=== PATIENT | male | born 1935 | race Caucasian/White ===

== ENCOUNTER 2017-10-03 09:11 | Day surgery (SDC) | payer MEDICARE, MEDICAID ==
[~2017-10-03] VITALS: Ht 170.2 cm; Wt 70.3 kg
[~2017-10-03 09:11] MED LIST: ASPIRIN325 MG PO; BICALUTAMIDE50 MG PO; CALCIUM-MAGNES1 EAC4 PO; LISINOPRIL10 MG PO; TURMERIC500 M2 PO; VITAMIN C500 M5 PO; VYTORIN 10-201 EACH PO
== END 2017-10-03 12:38 | disposition home or self-care (01) ==
LOC: DS 09:11 → OPS 09:11 → DS 10:30 → OPS 12:38
PROVIDERS: Ophthalmology
PROC: 08RJ3JZ Replacement of Right Lens with Synthetic Substitute, Percutaneous Approach (ICD-10-PCS; principal; 2017-10-03 10:30)
DX: H25.13 Age-related nuclear cataract, bilateral (principal); I10 Essential (primary) hypertension; E78.00 Pure hypercholesterolemia, unspecified; R17 Unspecified jaundice; Z79.82 Long term (current) use of aspirin; Z79.899 Other long term (current) drug therapy

== ENCOUNTER 2019-07-25 15:49 | Emergency (ER) | payer MEDICARE, OTHER ==
[~2019-07-25] VITALS: Ht 170.2 cm; Wt 70.3 kg
--- OUTSIDE RECORDS SUMMARY | ~2019-07-25 | XMS | Encounter Summary ---
Demographics + + + | Address | [address] | | | [place] [address] | + + + | Home Phone | | + + + | Preferred Language | Unknown | + + + | Marital Status | | + + + | Rastafarian Affiliation | 1001 | + + + | Race | Unknown | + + + | Ethnic Group | Unknown | + + + Author + + + | Author | [facility] | | | and [place] | + + + | Organization | [facility] | | | and [place] | + + + | Address | Unknown | + + + | Phone | Unavailable | + + + Support + + + + + | Name | Relationship | Address | Phone | + + + + + | Alber Mckeon | ECON | [address] | | | | | [place] | | | | | [address] | | + + + + + | Mechelle Vidal | ECON | [place] | | | | | [address] | | + + + + + Care Team Providers + +------+ + | Care Biztalk Developer Name | Role | Phone | + +------+ + PCP | Unavailable | + +------+ + Encounter Details +--------+ + + + + | Date | Type | Department | Care Team | Description | +--------+ + + + + | 03/10/ | Hospital | [facility] | | | | 2008 - | Encounter | MED [facility] CAN[facility] | | | | | | CENTER [address] | | | | 03/19/ | | [place] | | | | 2008 | | [address] | | | | | | [phone] | | | +--------+ + + + + Social History + +-------+ +--------+------+ | Tobacco Use | Types | Packs/Day | Years | Date | | | | | Used | | + +-------+ +--------+------+ | Never Assessed | | | | | + +-------+ +--------+------+ + + + | Sex Assigned at | Date Recorded | | | | + + + | Not on file | | + + + + + + + | Job Start Date | Occupation | Industry | + + + + | Not on file | Not on file | Not on file | + + + + + + + + | Travel History | Travel Start | Travel End | + + + + + + | No recent travel history available. | + + documented as of this encounter Plan of Treatment Not on filedocumented as of this encounter Visit Diagnoses Not on filedocumented in this encounter"
--- OUTSIDE RECORDS SUMMARY | ~2019-07-25 | XMS | Encounter Summary ---
Demographics + + + | Address | [address] | | | [place] [address] | + + + | Home Phone | | + + + | Preferred Language | Unknown | + + + | Marital Status | | + + + | Yazidism Affiliation | 1001 | + + + | Race | Unknown | + + + | Ethnic Group | Unknown | + + + Author + + + | Author | [facility] | | | and [place] | + + + | Organization | [facility] | | | and [...] [place] | | | | | [address] | | + + + + + | Mechelle Vidal | ECON | [place] | | | | | [address] | | + + + + + Care Team Providers + +------+ + | Care Airport Manager Name | Role | Phone | + +------+ + PCP | Unavailable | + +------+ + Encounter Details +--------+ + + + + | Date | Type | Department | Care Team | Description | +--------+ + + + + | 10/11/ | Hospital | [facility] | Timoteo Toribio, | | | 2011 - | Encounter | MED CTR CANCER | [place] [address] | | | | | [place] [address] | [place] | | | / | | [place], [place] | [address] | | | 2011 | | [address] | [phone] | | | | | [phone] | | | +--------+ + + + [...] encounter Progress Notes Timoteo Toribio MD - 10/11/2011 1:24 AM PSTDATE: 10/11/2011 RADIATION ONCOLOGY FOLLOWUP NOTE DIAGNOSIS: 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 FOLLOWUP NOTE: Mr. Akhil Mckeon is a 76-year-old gentleman with a history of a Tato 6 adenoca rcinoma of the prostate diagnosed back in 2001. The patient was treated with de finitive radiation , receiving 6840 cGy at that time. The patient did experience a PSA failure in 2004 and was sta rted on Lupron, with his last injection in May of 2010 . Hormonal therapy was discontinued at jeronimo t time, however, a rising PSA was noted, going from 0.26 in September to a level of 4 in March and up to 5.28 in May of 2011. Decisio n was made to restart hormonal therapy, and the patient was give n a 3-month injection of T relstar back on June 28. The patient returns today for further follow up. Mr. Mckeon states that he has tolerated restarting the hormone therapy well. He states his appeti te and energy level are good and gets the occasional hot flash but nothing signi ficant for him. He d enies any changes to his urination. He does report an AUA score of 9 out of a possible 35. He does get up 2-3 times per night to urinate. PHYSICAL EXAMINATION VITAL SIGNS: Blood pressure 136/72, pulse of 76, temperature 37 degrees Celsius, weight 73 .7 kg. GENERAL: The patient is awake, alert and oriented, in no apparent distress. LABORATORY DATA: Serum PSA on 10/03/2011 was down to 0.62. ASSESSMENT AND PLAN: Mr. Akhil Mckeon is a 76-year-old gentleman with a history of a G leason 6 a denocarcinoma of the prostate, initially treated with definitive radiation thera py nearing 10 years a go. The patient did restart androgen suppression therapy with a Trel star injection 3 months ago, and did have a good response with his PSA going from 5.28 down to 0.62 over a 3-month period. The patie nt is tolerating these treatment well. In discu ssion with Mr. Mckeon, he would like to continue t hat therapy at this time. Repeat 3-m onth injection of Trelstar was given today. [facility] for further followup. Approximately 20 minutes was spent with this patient, more than 50% of which was spent in d iscussion. DICTATED BY: Timoteo Toribio MD Radiation Oncology JOB #: [id number] EXT JOB #:[id number] EDITED: 10/16/2011 07:44 <Electronically Signed by Timoteo Toribio MD> 10/22/11 2259 documented in this encounter Plan of Treatment Not on filedocumented as of this encounter Visit Diagnoses Not on filedocumented in this encounter"
--- OUTSIDE RECORDS SUMMARY | ~2019-07-25 | XMS | Encounter Summary ---
Demographics + + + | Address | [address] | | | [place] [address] | + + + | Home Phone | | + + + | Preferred Language | Unknown | + + + | Marital Status | | + + + | Adventism Affiliation | 1001 | + + + | Race | Unknown | + + + | Ethnic Group | Unknown | + + + Author + + + | Author | [facility] | | | and [place] | + + + | Organization | [facility] | | | [...] [place] | | | | | [address] | | + + + + + | Mechelle Vidal | ECON | [place] | | | | | [address] | | + + + + + Care Team Providers + +------+ + | Care Adult Basic Education Manager Name | Role | Phone | + +------+ + PCP | Unavailable | + +------+ + Encounter Details +--------+ + + + + | Date | Type | Department | Care Team | Description | +--------+ + + + + | 06/28/ | Hospital | [facility] | Timoteo Toribio, | | | 2010 - | Encounter | MED CTR CANCER | [place] [address] | | | | | [place] [address] | [place] | | | 07/19/ | | [place], [place] | [address] | | | 2010 | | [address] | [phone] | | | | | [phone] | | | +--------+ + + + [...] Timoteo Toribio MD Radiation Oncology JOB #: [id number] EXT JOB #:[id number] cc: MD Alia Loza MD <Electronically Signed by Timoteo Toribio MD> 07/15/11 1100 documented in this encounter Plan of Treatment Not on filedocumented as of this encounter Visit Diagnoses Not on filedocumented in this encounter"
--- OUTSIDE RECORDS SUMMARY | ~2019-07-25 | XMS | Encounter Summary ---
Demographics + + + | Address | [address] | | | [place] [address] | + + + | Home Phone | | + + + | Preferred Language | Unknown | + + + | Marital Status | | + + + | Sikh Affiliation | 1001 | + + + | Race | Unknown | + + + | Ethnic Group | Unknown | + + + Author + + + | Author | [facility] | | | and [place] | + + + | Organization | [facility] | | | [...] [place] | | | | | [address] | | + + + + + | Mechelle Vidal | ECON | [place] | | | | | [address] | | + + + + + Care Team Providers + +------+ + | Care Tradeshow Worker Name | Role | Phone | + +------+ + PCP | Unavailable | + +------+ + Encounter Details +--------+ + + + + | Date | Type | Department | Care Team | Description | +--------+ + + + + | 02/26/ | Hospital | [facility] | | | | 2006 - | Encounter | MED CTR CANCER | | | | | | CENTER [address] | | | | 03/19/ | | [place] | | | | 2006 | | [address] | | | | | | [phone] | | | +--------+ + + + [...]
--- OUTSIDE RECORDS SUMMARY | ~2019-07-25 | XMS | Encounter Summary ---
Demographics + + + | Address | [address] | | | [place] [address] | + + + | Home Phone | | + + + | Preferred Language | Unknown | + + + | Marital Status | | + + + | Bahai Affiliation | 1001 | + + + | Race | Unknown | + + + | Ethnic Group | Unknown | + + + Author + + + | Author | [facility] | | | and [place] | + + + | Organization | [facility] | | [...] [place] | | | | | [address] | | + + + + + | Mechelle Vidal | ECON | [place] | | | | | [address] | | + + + + + Care Team Providers + +------+ + | Care Oil Producer Name | Role | Phone | + +------+ + PCP | Unavailable | + +------+ + Encounter Details +--------+ + + + + | Date | Type | Department | Care Team | Description | +--------+ + + + + | 07/15/ | Hospital | [facility] | | | | 2007 - | Encounter | MED CTR CANCER | | | | | | CENTER [address] | | | | 07/19/ | | [place] | | | | 2007 | | [address] | | | | | | [phone] | | | +--------+ + + + [...]
--- OUTSIDE RECORDS SUMMARY | ~2019-07-25 | XMS | Encounter Summary ---
Demographics + + + | Address | [address] | | | [place] [address] | + + + | Home Phone | | + + + | Preferred Language | Unknown | + + + | Marital Status | | + + + | Anglican Affiliation | 1001 | + + + | Race | Unknown | + + + | Ethnic Group | Unknown | + + + Author + + + | Author | [facility] | | | and [place] | + + + | Organization | [facility] | | | [...] [place] | | | | | [address] | | + + + + + | Mechelle Vidal | ECON | [place] | | | | | [address] | | + + + + + Care Team Providers + +------+ + | Care Handkerchief Cutter Name | Role | Phone | + +------+ + PCP | Unavailable | + +------+ + Encounter Details +--------+ + + + + | Date | Type | Department | Care Team | Description | +--------+ + + + + | 01/09/ | Hospital | [facility] | Timoteo Toribio, | | | 2011 - | Encounter | MED CTR CANCER | [place] [address] | | | | | [place] [address] | [place] | | | 01/17/ | | [place] | [address] | | | 2011 | | [address] | [phone] | | | | | [phone] | | | +--------+ + + + [...] documented as of this encounter Progress Notes Brianna Rodriguez MD - 01/10/2012 12:06 AM PDTDATE: 01/10/2012 RADIATION ONCOLOGY - FOLLOWUP NOTE IDENTIFICATION: A 76-year-old gentleman with 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 He is status post 4500 cGy to the pelvis, 6120 cGy to the seminal vesicle and 6 840 cGy to the prostate as of 01/2002. SUBJECTIVE: The patient is without any specific GI or complaints. He admits to having n octuria 3 to 4 times per night as he eats supper late, around 9:30 or 10 p.m. and drinks at that time. This nocturia frequency is his usual and has not increased. He complains of ho t flashes since being on Trelstar. OBJECTIVE VITAL SIGNS: Weight 71.3 kg (down 2.4 kg since September, and the patient is happy with thi s) temperature 35.9, pulse 60 and regular, blood pressure 150/78. GENERAL: The patient is a well-developed, well-nourished gentleman in no acute distress who appears his stated age a nd does not appear chronically ill. PSYCHIATRIC: He is alert and appropriately responsive. No obvious signs of anxiety, agitation or depression. Memory appears to be intact. His PSA values have been as follows: 5.28 in 05/2011. 0.62 in 09/2011 0.443 on 01/02/2012. ASSESSMENT: Mild weight loss, but the patient states he is eating well and says that he is happy with his weight loss. PSA continues to decline. PLAN: We will administer another injection of Trelstar today (11.25 mg IM). He will be philip eduled for a 3-month followup appointment with a PSA 1 week prior to the appointment. He wi ll continue to have his labs drawn in [place]. He will continue to see his other physicia ns as needed. DICTATED BY: Brianna Rodriguez MD Radiation Oncology JOB #: [id number] EXT JOB #:[id number] cc: MD Alia Loza MD Spencer N. Ashton, MD <Electronically Signed by Brianna Rodriguez MD> 01/10/12 1242 documented in this encounter Plan of Treatment Not on filedocumented as of this encounter Visit Diagnoses Not on filedocumented in this encounter"
--- OUTSIDE RECORDS SUMMARY | ~2019-07-25 | XMS | Encounter Summary ---
Demographics + + + | Address | [address] | | | [place] [address] | + + + | Home Phone | | + + + | Preferred Language | Unknown | + + + | Marital Status | | + + + | Rastafarian Affiliation | 1001 | + + + | Race | Unknown | + + + | Ethnic Group | Unknown | + + + Author + + + | Author | [facility] | | | and [place] | + + + | Organization | [facility] | | | and [...] [address] | | | | | [address] | | + + + + + | Mechelle Vidal | ECON | [place] | | | | | [address] | | + + + + + Care Team Providers + +------+ + | Care Municipal Bond Trader Name | Role | Phone | + +------+ + PCP | Unavailable | + +------+ + Encounter Details +--------+ + + + + | Date | Type | Department | Care Team | Description | +--------+ + + + + | 04/03/ | Hospital | [facility] | | | | 2007 - | Encounter | MED CTR CANCER | | | | | | CENTER [address] | | | | 04/19/ | | [place] | | | | 2007 | | [address] | | | | | | [phone] | | | +--------+ + + + [...]
--- OUTSIDE RECORDS SUMMARY | ~2019-07-25 | XMS | Encounter Summary ---
Demographics + + + | Address | [address] | | | [place] [address] | + + + | Home Phone | | + + + | Preferred Language | Unknown | + + + | Marital Status | | + + + | Mu-Ism Affiliation | 1001 | + + + | Race | Unknown | + + + | Ethnic Group | Unknown | + + + Author + + + | Author | [facility] | | | and [place] | + + + | Organization | [facility] | | | [...] [address] | | | | | [address] | | + + + + + | Mechelle Vidal | ECON | [place] | | | | | [address] | | + + + + + Care Team Providers + +------+ + | Care Crew Boat Operator Name | Role | Phone | + +------+ + PCP | Unavailable | + +------+ + Encounter Details +--------+ + + + + | Date | Type | Department | Care Team | Description | +--------+ + + + + | 11/07/ | Hospital | [facility] | | | | 2001 - | Encounter | MED CTR CANCER | | | | | | CENTER [address] | | | | 02/05/ | | [place] | | | | 2001 | | [address] | | | | | | [phone] | | | +--------+ + + + [...]
--- OUTSIDE RECORDS SUMMARY | ~2019-07-25 | XMS | Encounter Summary ---
Demographics + + + | Address | [address] | | | [place] [address] | + + + | Home Phone | | + + + | Preferred Language | Unknown | + + + | Marital Status | | + + + | Jainism Affiliation | 1001 | + + + | Race | Unknown | + + + | Ethnic Group | Unknown | + + + Author + + + | Author | [facility] | | | and [place] | + + + | Organization | [facility] | | | [...] [address] | | | | | [address] | | + + + + + | Mechelle Vidal | ECON | [place] | | | | | [address] | | + + + + + Care Team Providers + +------+ + | Care Freight Rate Specialist Name | Role | Phone | + +------+ + PCP | Unavailable | + +------+ + Encounter Details +--------+ + + + + | Date | Type | Department | Care Team | Description | +--------+ + + + + | 11/15/ | Hospital | [facility] | | | | 2005 - | Encounter | MED CTR GENERIC OP | | | | | | CONV DEPT [address] | | | | 11/17/ | | [place], | | | | 2005 | | [place] [address] | | | | | | [phone] | | | +--------+ + + + [...]
--- OUTSIDE RECORDS SUMMARY | ~2019-07-25 | XMS | Encounter Summary ---
Demographics + + + | Address | [address] | | | [place] [address] | + + + | Home Phone [...] + + | Author | [facility] | | | and [place] | + + + | Organization | [facility] | | [...] [address] | | | | | [address] | | + + + + + | Mechelle Vidal | ECON | [place] | | | | | [address] | | + + + + + Care Team Providers + +------+ + | Care Rubber Goods Repairer Name | Role | Phone | + +------+ + PCP | Unavailable | + +------+ + Encounter Details +--------+ + + + + | Date | Type | Department | Care Team | Description | +--------+ + + + + | 10/11/ | Hospital | [facility] | Timoteo Toribio, | | | 2011 - | Encounter | MED CTR CANCER | [place] [address] | | | | | [place] [address] | [place] | | | / | | [place], [place] | [address] | | | 2011 | | [address] | [phone] | | | | | [phone] | | | +--------+ + + + [...] given today. [facility] for further followup. Approximately 20 minutes was spent with this patient, more than 50% of which was spent in d iscussion. DICTATED BY: Timoteo Toribio MD Radiation Oncology JOB #: [id number] EXT JOB #:[id number] EDITED: 10/16/2011 07:44 <Electronically Signed by Timoteo Toribio MD> 10/22/11 2259 documented in this encounter Plan of Treatment Not on filedocumented as of this encounter Visit Diagnoses Not on filedocumented in this encounter"
--- OUTSIDE RECORDS SUMMARY | ~2019-07-25 | XMS | Encounter Summary ---
Demographics + + + | Address | [address] | | | [place] [address] | + + + | Home Phone [...] [address] | | | | | [address] | | + + + + + | Mechelle Vidal | ECON | [place] | | | | | [address] | | + + + + + Care Team Providers + +------+ + | Care Project Landscape Architect Name | Role | Phone | + [...] | | | | 2007 | | [address] | | | | | | [phone] | | | +--------+ + + + [...]
--- OUTSIDE RECORDS SUMMARY | ~2019-07-25 | XMS | Encounter Summary ---
Demographics + + + | Address | [address] | | | [place] [address] | + + + | Home Phone | | + + + | Preferred Language | Unknown | + + + | Marital Status | | + + + | Mandaen Affiliation | 1001 | + + + | Race | Unknown | + + + | Ethnic Group | Unknown | + + + Author + + + | Author | [facility] | | | and [place] | + + + | Organization | [facility] | | | and [...] [address] [place] | | | | | [address] | | + + + + + | Mechelle Vidal | ECON | [place] | | | | | [address] | | + + + + + Care Team Providers + +------+ + | Care Benefits Technician Name | Role | Phone | [...] | | | | 2007 | | [address] | | | | | | [phone] | | | +--------+ + + + [...]
--- OUTSIDE RECORDS SUMMARY | ~2019-07-25 | XMS | Encounter Summary ---
Demographics + + + | Address | [address] | | | [place] [address] | + + + | Home Phone | | + + + | Preferred Language | Unknown | + + + | Marital Status | | + + + | Mormon Affiliation | 1001 | + + + [...] [place] | | | | | [address] | | + + + + + | Mechelle Vidal | ECON | [place] | | | | | [address] | | + + + + + Care Team Providers + +------+ + | Care Fisher Gill Net Name | Role | Phone | + +------+ + | Naeem Nair MD | PCP | | + +------+ + Encounter Details +--------+ + + + + | Date | Type | Department | Care Team | Description | +--------+ + + + + | 11/27/ | Hospital | [facility] | Catarino Timoteo N, | | | 2012 - | Encounter | MED CTR CANCER | [place] [address] | | | | | [place] [address] | [place] | | | 12/17/ | | [place] | [address] | | | 2012 | | [address] | [phone] | | | | | [phone] | | | +--------+ + + + [...]
--- OUTSIDE RECORDS SUMMARY | ~2019-07-25 | XMS | Encounter Summary ---
Demographics + + + | Address | [address] | | | [place] [address] | + + + | Home Phone | | + + + | Preferred Language | Unknown | + + + | Marital Status | | + + + | Holiness Affiliation | 1001 | + + + | Race | Unknown | + + + | Ethnic Group | Unknown | + + + Author + + + | Author | [facility] | | | and [place] | + + + | Organization | [facility] | | | and [place] | + + + | Address | Unknown | + + + | Phone | Unavailable | + + + Support + + + + + | Name | Relationship | Address | Phone | + + + + + | Alber Mckeno | ECON | [address] | | | | | [place] | | | | | [address] | | + + + + + | Mechelle Vidal | ECON | [place] | | | | | [address] | | + + + + + Care Team Providers + +------+ + | Care Education Program Coordinator Name | Role | Phone | + [...] | | | | 2002 | | [address] | | | | | | [phone] | | | +--------+ + + + [...]
--- OUTSIDE RECORDS SUMMARY | ~2019-07-25 | XMS | Encounter Summary ---
Demographics + + + | Address | [address] | | | [place] [address] | + + + | Home Phone | | + + + | Preferred Language | Unknown | + + + | Marital Status | | + + + | Hoahaoism Affiliation | 1001 | + + + | Race | Unknown | + + + | Ethnic Group | Unknown | + + + Author + + + | Author | [facility] | | | and [place] | + + + | Organization | [facility] | | | [...] [place] | | | | | [address] | | + + + + + | Mechelle Vidal | ECON | [place] | | | | | [address] | | + + + + + Care Team Providers + +------+ + | Care Care Management Specialist Name | Role | Phone | + +------+ + | Naeem Nair MD | PCP | | + +------+ + Encounter Details +--------+ + + + + | Date | Type | Department | Care Team | Description | +--------+ + + + + | 07/10/ | Hospital | [facility] | Catarino Timoteo N, | | | 2011 - | Encounter | MED CTR CANCER | [place] [address] | | | | | [place] [address] | [place] | | | 07/19/ | | [place] | [address] | | | 2011 | | [address] | [phone] | | | | | [phone] | | | +--------+ + + + [...] | [facility] | | | | [place] [facility] | | MEDICAL | | | [...] + | [facility] | [address] | [place] | [phone] | | [facility] | | [address] | | | - LABORATORY | | | | + + + + + | [place] | [address] | [place] | | | [facility] | | [address] | | | - LABORATORY | | | | + + + + + documented in this encounter Visit Diagnoses Not on filedocumented in this encounter"
--- OUTSIDE RECORDS SUMMARY | ~2019-07-25 | XMS | Encounter Summary ---
Demographics + + + | Address | [address] | | | [place] [address] | + + + | Home Phone | | + + + | Preferred Language | Unknown | + + + | Marital Status | | + + + | Religion Affiliation | 1001 | + + + | Race | Unknown | + + + | Ethnic Group | Unknown | + + + Author + + + | Author | [facility] | | | and Jorgeana | + + + | Organization | [facility] | | | [...] [address] | | | | | [address] | | + + + + + | Mechelle Vidal | ECON | [place] | | | | | [address] | | + + + + + Care Team Providers + +------+ + | Care Technology Auditor Name | Role | Phone | + +------+ + PCP | Unavailable | + +------+ + Encounter Details +--------+ + + + + | Date | Type | Department | Care Team | Description | +--------+ + + + + | 04/10/ | Hospital | [facility] | Timoteo Toribio, | | | 2011 - | Encounter | MED CTR CANCER | [place] [address] | | | | | [place] [address] | [place] | | | 04/19/ | | [place], [place] | [address] | | | 2011 | | [address] | [phone] | | | | | [phone] | | | +--------+ + + + [...] tend erness. He continues to work a [employer] every day. PHYSICAL EXAMINATION VITAL SIGNS: Weight [...] Bassam Cristina MD Radiation Oncology JOB #: [id number] [id number] JOB #:[id number] cc: MD Alia Loza MD Spencer N. Ashton, MD <Electronically Signed by Bassam Cristina MD> 04/10/12 1458 documented in this encounter Plan of Treatment Not on filedocumented as of this encounter Visit Diagnoses Not on filedocumented in this encounter"
--- OUTSIDE RECORDS SUMMARY | ~2019-07-25 | XMS | Encounter Summary ---
Demographics + + + | Address | [address] | | | [place] [address] | + + + | Home Phone [...] [place] | | | | | [address] | | + + + + + | Mechelle Vidal | ECON | [place] | | | | | [address] | | + + + + + Care Team Providers + +------+ + | Care Real Estate Attorney Name | Role | Phone | + [...] | | [address] [address] | [place] [address] | | | | | [address] | [phone] | | | | | [phone] | | | +--------+ + + + [...] 2.49 cm AR Dec | | | Harper: 1.99 m/s2 AR Dec Time: 2107.85 ms [...] m/s Lateral E/e': 10.58 | | | Mannequin Wig Maker: [email or web address] Authenticated by: Hipolito Suarez | | | Date/Time: 08-03-2017 14:15:57 | | + + + + + | Procedure Note | + + | Theodore, Rad Conversion - 04/10/2019 8:37 PM PDT Patient Name: Eileen Mckeon | | of : 1935 Performing Physician: Hipolito | | [facility] INDICATIONS------ | | -----Murmur CONCLUSIONS 1. [...] cmLVIDd: 3.73 cmLVPWd: 1.02 cmLVOT Area: 3.12 [id number] Diam: | | 1.99 cm%FS: 38.08 %EF(Teich): [...] (A-L): 15.42 ml/m2LAAs | | A2C: 12.67 [id number] A-L A2C: 30.25 mlLALs A2C: 4.50 cmLAAs A4C: 14.55 [id number] | | A-L A4C: 41.62 mlLALs A4C: 4.31 cmRAAs: 13.92 [id number] A-L: 37.79 mlRAESV MOD: | | 35.28 mlRALs: 4.35 cmTAPSE: 2.49 cmAR Dec Harper: 1.99 m/s2AR Dec Time: 2106. | | msAR maxP.62 mmHgAR PHT: 611.27 msAR Vmax: 4.20 m/Alva maxP.12 mmHgAV | | meanP.84 mmHgAV Vmax: 1.59 m/Alva Vmean: 1.14 m/Alva VTI: 34.41 cmAVA Vmax: | | 2.76 cm2AVA (VTI): 3.27 [id number] Vmax: 0.00 cm2/m2AVAI (VTI): 0.00 cm2/m2LVOT | | maxP.93 mmHgLVOT meanP.33 mmHgLVSI Dopp: 47.98 ml/m2LVSV Dopp: 112.76 | | mlLVOT Vmax: 1.40 m/sLVOT Vmean: 1.11 m/sLVOT VTI: 36.07 cmMV A Jerry: 0.91 m/sMV | | DecT: 209.15 msMV E Jerry: 0.82 m/sMV E/A Ratio: 0.90MV PHT: 60.65 msMVA By PHT: | | 3.62 or2Zeaxjb e': 0.06 m/sSeptal E/e': 12.63Lateral e': 0.07 m/sLateral E/e': | | 10.58 Mannequin Wig Maker: [email or web address] by: Hipolito Wooten Date/Time: 08-03-2017 | [...] | |TAPSE: 2.49 cm | |AR Dec Harper: 1.99 m/s2 | |AR Dec Time: 2107.85 [...] | |Lateral E/e': 10.58 | | | |Mannequin Wig Maker: DBS | |Authenticated by: Hipolito Cullen | [...]
--- OUTSIDE RECORDS SUMMARY | ~2019-07-25 | XMS | Encounter Summary ---
Demographics + + + | Address | [address] | | | [place] [address] | + + + | Home Phone [...] [address] | | | | | [address] | | + + + + + | Mechelle Vidal | ECON | [place] | | | | | [address] | | + + + + + Care Team Providers + +------+ + | Care Software Educator Name | Role | Phone | + +------+ + PCP | Unavailable | + +------+ + Encounter Details +--------+ + + + + | Date | Type | Department | Care Team | Description | +--------+ + + + + | 04/23/ | Hospital | [facility] | | | | 2001 - | Encounter | MED CTR CANCER | | | | | | CENTER [address] | | | | 08/15/ | | [place] | | | | 2001 | | [address] | | | | | | [phone] | | | +--------+ + + + [...]
--- OUTSIDE RECORDS SUMMARY | ~2019-07-25 | XMS | Encounter Summary ---
Demographics + + + | Address | [address] | | | [place] [address] | + + + | Home Phone | | + + + | Preferred Language | Unknown | + + + | Marital Status | | + + + | Uatsdin Affiliation | 1001 | + + + | Race | Unknown | + + + | Ethnic Group | Unknown | + + + Author + + + | Author | [facility] | | | and Jorge[place] | + + + | Organization | [facility] | | [...] [address] | | | | | [address] | | + + + + + | Mechelle Vidal | ECON | [place] | | | | | [address] | | + + + + + Care Team Providers + +------+ + | Care Foam Rubber Mixer Name | Role | Phone | + +------+ + PCP | Unavailable | + +------+ + Encounter Details +--------+ + + + + | Date | Type | Department | Care Team | Description | +--------+ + + + + | 10/20/ | Hospital [facility] | | | | 2004 - | Encounter | MED CTR GENERIC OP | | | | | | CONV DEPT [address] | | | | 01/18/ | | [place], | | | | 2004 | | [place] [address] | | | | | | [phone] | | | +--------+ + + + [...]
--- OUTSIDE RECORDS SUMMARY | ~2019-07-25 | XMS | Encounter Summary ---
Demographics + + + | Address | [address] | | | [place] [address] | + + + | Home Phone | | + + + | Preferred Language | Unknown | + + + | Marital Status | | + + + | Moravian Affiliation | 1001 | + + + [...] [address] | | | | | [address] | | + + + + + | Mechelle Vidal | ECON | [place] | | | | | [address] | | + + + + + Care Team Providers + +------+ + | Care Lens Blank Gauger Name | Role | Phone | + [...] | | | | 2007 | | [address] | | | | | | [phone] | | | +--------+ + + + [...]
--- OUTSIDE RECORDS SUMMARY | ~2019-07-25 | XMS | Encounter Summary ---
Demographics + + + | Address | [address] | | | [place] [address] | + + + | Home Phone | | + + + | Preferred Language | Unknown | + + + | Marital Status | | + + + | Evangelical Affiliation | 1001 | + + + | Race | Unknown | + + + | Ethnic Group | Unknown | + + + Author + + + | Author | [facility] | | | and Jorgeana | + + + | Organization | [facility] | | [...] [address] | | | | | [address] | | + + + + + | Mechelle Vidal | ECON | [place] | | | | | [address] | | + + + + + Care Team Providers + +------+ + | Care Bank President Name | Role | Phone | + [...] | | | | 2007 | | [address] | | | | | | [phone] | | | +--------+ + + + [...]
--- OUTSIDE RECORDS SUMMARY | ~2019-07-25 | XMS | Encounter Summary ---
Demographics + + + | Address | [address] | | | [place] [address] | + + + | Home Phone | | + + + | Preferred Language | Unknown | + + + | Marital Status | | + + + | Jainism Affiliation | 1001 | + + + | Race | Unknown | + + + | Ethnic Group | Unknown | + + + Author + + + | Author | [facility] | | | and Jorge[place] | + + + | Organization | [facility] | [...] [place] | | | | | [address] | | + + + + + | Mechelle Vidal | ECON | [place] | | | | | [address] | | + + + + + Care Team Providers + +------+ + | Care Director Geophysical Laboratory Name | Role | Phone | + +------+ + | Naeem Nair MD | PCP | | + +------+ + Encounter Details +--------+ + + + + | Date | Type | Department | Care Team | Description | +--------+ + + + + | 11/27/ | Hospital | [facility] | Catarino Timoteo N, | | | 2012 - | Encounter | MED CTR CANCER | [place] [address] | | | | | [place] [address] | [place] | | | 12/17/ | | [place] | [address] | | | 2012 | | [address] | [phone] | | | | | [phone] | | | +--------+ + + + [...]
--- OUTSIDE RECORDS SUMMARY | ~2019-07-25 | XMS | Encounter Summary ---
Demographics + + + | Address | [address] | | | [place] [address] | + + + | Home Phone | | + + + | Preferred Language | Unknown | + + + | Marital Status | | + + + | Evangelical Affiliation | 1001 | + + + | Race | Unknown | + + + | Ethnic Group | Unknown | + + + Author + + + | Author | [facility] | | | and Jorgeana | + + + | Organization | [facility] | | | [...] [address] | | | | | [address] | | + + + + + | Mechelle Vidal | ECON | [place] | | | | | [address] | | + + + + + Care Team Providers + +------+ + | Care Project Financial Analyst Name | Role | Phone | [...] | | | | 2006 | | [address] | | | | | | [phone] | | | +--------+ + + + [...]
--- OUTSIDE RECORDS SUMMARY | ~2019-07-25 | XMS | Encounter Summary ---
Demographics + + + | Address | [address] | | | [place] [address] | + + + | Home Phone | | + + + | Preferred Language | Unknown | + + + | Marital Status | | + + + | Adventism Affiliation | 1001 | + + + | Race | Unknown | + + + | Ethnic Group | Unknown | + + + Author + + + | Author | [facility] | | | and Jorgeana | + + + | Organization | [facility] | | [...] [address] | | | | | [address] | | + + + + + | Mechelle Vidal | ECON | [place] | | | | | [address] | | + + + + + Care Team Providers + +------+ + | Care Quality Assurance Assistant Name | Role | Phone | + +------+ + PCP | Unavailable | + +------+ + Encounter Details +--------+ + + + + | Date | Type | Department | Care Team | Description | +--------+ + + + + | 11/12/ | Hospital | [facility] | | | | 2008 - | Encounter | MED CTR CANCER | | | | | | CENTER [address] | | | | 11/17/ | | [place] | | | | 2008 | | [address] | | | | | | [phone] | | | +--------+ + + + [...]
--- OUTSIDE RECORDS SUMMARY | ~2019-07-25 | XMS | Encounter Summary ---
Demographics + + + | Address | [address] | | | [place] [address] | + + + | Home Phone | | + + + | Preferred Language | Unknown | + + + | Marital Status | | + + + | Bahai Affiliation | 1001 | + + + | Race | Unknown | + + + | Ethnic Group | Unknown | + + + Author + + + | Author | [facility] | | | and Jorgeana | + + + | Organization | [facility] | | [...] [address] | | | | | [address] | | + + + + + | Mechelle Vidal | ECON | [place] | | | | | [address] | | + + + + + Care Team Providers + +------+ + | Care Die Reamer Name | Role | Phone | + +------+ + PCP | Unavailable | + +------+ + Encounter Details +--------+ + + + + | Date | Type | Department | Care Team | Description | +--------+ + + + + | 05/11/ | Hospital | [facility] | | | | 2004 - | Encounter | MED CTR GENERIC OP | | | | | | CONV DEPT [address] | | | | 08/09/ | | [place], | | | | 2004 | | [place] [address] | | | | | | [phone] | | | +--------+ + + + [...]
--- OUTSIDE RECORDS SUMMARY | ~2019-07-25 | XMS | Encounter Summary ---
Demographics + + + | Address | [address] | | | [place] [address] | + + + | Home Phone | | + + + | Preferred Language | Unknown | + + + | Marital Status | | + + + | Jainism Affiliation | 1001 | + + + | Race | Unknown | + + + | Ethnic Group | Unknown | + + + Author + + + | Author | [facility] | | | and [place] | + + + | Organization | [facility] | | [...] [address] | | | | | [address] | | + + + + + | Mechelle Vidal | ECON | [place] | | | | | [address] | | + + + + + Care Team Providers + +------+ + | Care Lan Administrator Name | Role | Phone | + [...] | | | 08/07/ | | [place] | | | | 2005 | | [address] | | | | | | [phone] | | | +--------+ + + + [...]
--- OUTSIDE RECORDS SUMMARY | ~2019-07-25 | XMS | Encounter Summary ---
Demographics + + + | Address | [address] | | | [place] [address] | + + + | Home Phone | | + + + | Preferred Language | Unknown | + + + | Marital Status | | + + + | Hindu Affiliation | 1001 | + + + [...] [address] | | | | | [address] | | + + + + + | Mechelle Vidal | ECON | [place] | | | | | [address] | | + + + + + Care Team Providers + +------+ + | Care Lamp Decorator Name | Role | Phone | + +------+ + PCP | Unavailable | + +------+ + Encounter Details +--------+ + + + + | Date | Type | Department | Care Team | Description | +--------+ + + + + | 01/25/ | Hospital [facility] | | | | 2004 - | Encounter | MED CTR GENERIC OP | | | | | | CONV DEPT [address] | | | | 04/25/ | | [place], | | | | 2004 | | [place] [address] | | | | | | [phone] | | | +--------+ + + + [...]
--- OUTSIDE RECORDS SUMMARY | ~2019-07-25 | XMS | Encounter Summary ---
Demographics + + + | Address | [address] | | | [place] [address] | + + + | Home Phone | | + + + | Preferred Language | Unknown | + + + | Marital Status | | + + + | Islam Affiliation | 1001 | + + + | Race | Unknown | + + + | Ethnic Group | Unknown | + + + Author + + + | Author | [facility] | | | and Jorgeana | + + + | Organization | [facility] | | | [...] [address] | | | | | [address] | | + + + + + | Mechelle Vidal | ECON | [place] | | | | | [address] | | + + + + + Care Team Providers + +------+ + | Care Straightedge Worker Name | Role | Phone | [...] | | | | 2006 | | [address] | | | | | | [phone] | | | +--------+ + + + [...]
--- OUTSIDE RECORDS SUMMARY | ~2019-07-25 | XMS | Encounter Summary ---
Demographics + + + | Address | [address] | | | [place] [address] | + + + | Home Phone | | + + + | Preferred Language | Unknown | + + + | Marital Status | | + + + | Gnosticist Affiliation | 1001 | + + + [...] [address] | | | | | [address] | | + + + + + | Mechelle Vidal | ECON | [place] | | | | | [address] | | + + + + + Care Team Providers + +------+ + | Care Industrial Editor Name | Role | Phone | + +------+ + PCP | Unavailable | + +------+ + Encounter Details +--------+ + + + + | Date | Type | Department | Care Team | Description | +--------+ + + + + | 06/28/ | Hospital | [facility] | Timoteo Toribio, | | | 2010 - | Encounter | MED CTR CANCER | [place] [address] | | | | | [place] [address] | [place] | | | 07/19/ | | [place] | [address] | | | 2010 | | [address] | [phone] | | | | | [phone] | | | +--------+ + + + [...] Timoteo Toribio MD Radiation Oncology JOB #: [id number] EXT JOB #:[id number] cc: MD Alia Loza MD <Electronically Signed by Timoteo Toribio MD> 07/15/11 1100 documented in this encounter Plan of Treatment Not on filedocumented as of this encounter Visit Diagnoses Not on filedocumented in this encounter"
--- OUTSIDE RECORDS SUMMARY | ~2019-07-25 | XMS | Encounter Summary ---
Demographics + + + | Address | [address] | | | [place] [address] | + + + | Home Phone [...] [address] | | | | | [address] | | + + + + + | Mechelle Vidal | ECON | [place] | | | | | [address] | | + + + + + Care Team Providers + +------+ + | Care Calender Let Off Helper Name | Role | Phone | + +------+ + PCP | Unavailable | + +------+ + Encounter Details +--------+ + + + + | Date | Type | Department | Care Team | Description | +--------+ + + + + | 11/15/ | Hospital | [facility] | | | | 2005 - | Encounter | MED CTR GENERIC OP | | | | | | CONV DEPT [address] | | | | 11/17/ | | [place], | | | | 2005 | | [place] [address] | | | | | | [phone] | | | +--------+ + + + [...]
--- OUTSIDE RECORDS SUMMARY | ~2019-07-25 | XMS | Encounter Summary ---
Demographics + + + | Address | [address] | | | [place] [address] | + + + | Home Phone [...] + | Author | [facility] | | | and Jorgeana | + + + | Organization | [facility] | | | and [...] [address] | | | | | [address] | | + + + + + | Mechelle Vidal | ECON | [place] | | | | | [address] | | + + + + + Care Team Providers + +------+ + | Care Literacy Education Professor Name | Role | Phone | + +------+ + PCP | Unavailable | + +------+ + Encounter Details +--------+ + + + + | Date | Type | Department | Care Team | Description | +--------+ + + + + | 10/12/ | Hospital | [facility] | | | | 2010 - | Encounter | MED CTR CANCER | | | | | | CENTER [address] | | | | 10/13/ | | [place] | | | | 2010 | | [address] | | | | | | [phone] | | | +--------+ + + + [...]
--- OUTSIDE RECORDS SUMMARY | ~2019-07-25 | XMS | Encounter Summary ---
Demographics + + + | Address | [address] | | | [place] [address] | + + + | Home Phone | | + + + | Preferred Language | Unknown | + + + | Marital Status | | + + + | Christianity Affiliation | 1001 | + + + [...] [address] | | | | | [address] | | + + + + + | Mechelle Vidal | ECON | [place] | | | | | [address] | | + + + + + Care Team Providers + +------+ + | Care Chief Radiology Name | Role | Phone | + +------+ + PCP | Unavailable | + +------+ + Encounter Details +--------+ + + + + | Date | Type | Department | Care Team | Description | +--------+ + + + + | 11/07/ | [facility] | | | 2001 | Encounter | MED CTR XRAY [address] | | | | | | [place] | | | | | | [place] [address] | | | | | | [phone] | | | +--------+ + + + [...]
--- OUTSIDE RECORDS SUMMARY | ~2019-07-25 | XMS | Encounter Summary ---
Demographics + + + | Address | [address] | | | [place] [address] | + + + | Home Phone | | + + + | Preferred Language | Unknown | + + + | Marital Status | | + + + | Holiness Affiliation | 1001 | + + + | Race | Unknown | + + + | Ethnic Group | Unknown | + + + Author + + + | Author | [facility] | | | and Jorgeana | + + + | Organization | [facility] | | | [...] [address] | | | | | [address] | | + + + + + | Mechelle Vidal | ECON | [place] | | | | | [address] | | + + + + + Care Team Providers + +------+ + | Care C Unix Developer Name | Role | Phone | + +------+ + PCP | Unavailable | + +------+ + Encounter Details +--------+ + + + + | Date | Type | Department | Care Team | Description | +--------+ + + + + | 04/12/ | Hospital | [facility] | Timoteo Toribio, | | | 2010 - | Encounter | MED CTR CANCER | [place] [address] | | | | | [place] [address] | [place], [place] | | | 04/19/ | | [place] | [address] | | | 2010 | | [address] | [phone] | | | | | [phone] | | | +--------+ + + + [...] ONCOLOGY FOLLOWUP NOTE DIAGNOSIS: Prostate adenocarcinoma, T3N0M0, [place]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 FOLLOWUP NOTE: Mr. Akhil Mckeon is [...] Timoteo Toribio MD Radiation Oncology JOB #: [id number] EXT JOB #:[id number] <Electronicall y Signed by Timoteo Toribio MD> 05/10/11 1600 documented in this encounter Plan of Treatment Not on filedocumented as of this encounter Visit Diagnoses Not on filedocumented in this encounter"
--- OUTSIDE RECORDS SUMMARY | ~2019-07-25 | XMS | Encounter Summary ---
Demographics + + + | Address | [address] | | | [place] [address] | + + + | Home Phone [...] [address] | | | | | [address] | | + + + + + | Mechelle Vidal | ECON | [place] | | | | | [address] | | + + + + + Care Team Providers + +------+ + | Care Property Disposal Manager Name | Role | Phone | [...] | | | | 2005 | | [address] | | | | | | [phone] | | | +--------+ + + + [...]
--- OUTSIDE RECORDS SUMMARY | ~2019-07-25 | XMS | Encounter Summary ---
Demographics + + + | Address | [address] | | | [place] [address] | + + + | Home Phone [...] [address] | | | | | [address] | | + + + + + | Mechelle Vidal | ECON | [place] | | | | | [address] | | + + + + + Care Team Providers + +------+ + | Care Fiber Picker Name | Role | Phone | + [...] | | | | 2006 | | [address] | | | | | | [phone] | | | +--------+ + + + [...]
--- OUTSIDE RECORDS SUMMARY | ~2019-07-25 | XMS | Encounter Summary ---
Demographics + + + | Address | [address] | | | [place] [address] | + + + | Home Phone [...] [address] | | | | | [address] | | + + + + + | Mechelle Vidal | ECON | [place] | | | | | [address] | | + + + + + Care Team Providers + +------+ + | Care Mock Up Assembler Name | Role | Phone | [...] | | | | 2002 | | [address] | | | | | | [phone] | | | +--------+ + + + [...]
--- OUTSIDE RECORDS SUMMARY | ~2019-07-25 | XMS | Encounter Summary ---
Demographics + + + | Address | [address] | | | [place] [address] | + + + | Home Phone [...] [address] | | | | | [address] | | + + + + + | Mechelle Vidal | ECON | [place] | | | | | [address] | | + + + + + Care Team Providers + +------+ + | Care Aircraft Worker Name | Role | Phone | + +------+ + PCP | Unavailable | + +------+ + Encounter Details +--------+ + + + + | Date | Type | Department | Care Team | Description | +--------+ + + + + | 08/10/ | Hospital | [facility] | | | | 2004 - | Encounter | MED CTR GENERIC OP | | | | | | CONV DEPT [address] | | | | 11/08/ | | [place], | | | | 2005 | | [place] [address] | | | | | | [phone] | | | +--------+ + + + [...]
--- OUTSIDE RECORDS SUMMARY | ~2019-07-25 | XMS | Encounter Summary ---
Demographics + + + | Address | [address] | | | [place] [address] | + + + | Home Phone | | + + + | Preferred Language | Unknown | + + + | Marital Status | | + + + | Rastafari Affiliation | 1001 | + + + | Race | Unknown | + + + | Ethnic Group | Unknown | + + + Author + + + | Author | [facility] | | | and [place] | + + + | Organization | [facility] | | | [...] [address] | | | | | [address] | | + + + + + | Mechelle Vidal | ECON | [place] | | | | | [address] | | + + + + + Care Team Providers + +------+ + | Care Conveyor Tender Name | Role | Phone | [...] | | | | 2001 | | [address] | | | | | | [phone] | | | +--------+ + + + [...]
--- OUTSIDE RECORDS SUMMARY | ~2019-07-25 | XMS | Encounter Summary ---
Demographics + + + | Address | [address] | | | [place] [address] | + + + | Home Phone [...] [address] | | | | | [address] | | + + + + + | Mechelle Vidal | ECON | [place] | | | | | [address] | | + + + + + Care Team Providers + +------+ + | Care Sequins Winder Name | Role | Phone | + [...] | | | | 2002 | | [address] | | | | | | [phone] | | | +--------+ + + + [...]
--- OUTSIDE RECORDS SUMMARY | ~2019-07-25 | XMS | Encounter Summary ---
Demographics + + + | Address | [address] | | | [place] [address] | + + + | Home Phone [...] [address] | | | | | [address] | | + + + + + | Mechelle Vidal | ECON | [place] | | | | | [address] | | + + + + + Care Team Providers + +------+ + | Care Coal Conveyor Operator Name | Role | Phone | [...] | | | | 2006 | | [address] | | | | | | [phone] | | | +--------+ + + + [...]
--- OUTSIDE RECORDS SUMMARY | ~2019-07-25 | XMS | Encounter Summary ---
Demographics + + + | Address | [address] | | | [place] [address] | + + + | Home Phone [...] [address] | | | | | [address] | | + + + + + | Mechelle Vidal | ECON | [place] | | | | | [address] | | + + + + + Care Team Providers + +------+ + | Care Bobbin Handler Name | Role | Phone | + [...] | | | | 2009 | | [address] | | | | | | [phone] | | | +--------+ + + + [...]
--- OUTSIDE RECORDS SUMMARY | ~2019-07-25 | XMS | Clinical Summary ---
Demographics + + + | Address | [address] | | | [place] [address] | + + + | Home Phone | | + + + | Preferred Language | Unknown | + + + | Marital Status | Unknown | + + + | Sabianism Affiliation | Unknown | + + + | Race | Unknown | + + + | Ethnic Group | Unknown | + + + Author + + + | Author | [facility] (Historical as of | | | 04-05-19) | + + + | Organization | [facility] (Historical as of | | | 04-05-19) [...] [place], [place] | | | | | [address] | | + + + + + Care Team Providers + +------+ + | Care Pumper Hand Name | Role | Phone | + [...] +------+-------+ + | MEDICARE | MEDICA | [id number] | | | [address] | | | RE | | | | [place] [address] | | | IP-OP | | | | | + +--------+ +------+-------+ + | MEDICAID | MEDICA | [id number] | | | [address] | | | ID | | | | [place] | | | [place] | | | | [address] | + +--------+ +------+-------+ + + +--------+ [...] | | | [place] | | | [address] | [address] | + +--------+ +--------+ + +"
--- OUTSIDE RECORDS SUMMARY | ~2019-07-25 | XMS | Encounter Summary ---
Demographics + + + | Address | [address] | | | [place] [address] | + + + | Home Phone | | + + + | Preferred Language | Unknown | + + + | Marital Status | | + + + | Druze Affiliation | 1001 | + + + | Race | Unknown | + + + | Ethnic Group | Unknown | + + + Author + + + | Author | [facility] | | | and Jorgeana | + + + | Organization | [facility] | | [...] [address] | | | | | [address] | | + + + + + | Mechelle Vidal | ECON | [place] | | | | | [address] | | + + + + + Care Team Providers + +------+ + | Care Diesel Engine Specialist Name | Role | Phone | + +------+ + PCP | Unavailable | + +------+ + Encounter Details +--------+ + + + + | Date | Type | Department | Care Team | Description | +--------+ + + + + | 10/21/ | Hospital | [facility] | | | | 2001 | Encounter | MED CTR XRAY [address] | | | | | | [place] | | | | | | [place] [address] | | | | | | [phone] | | | +--------+ + + + [...]
--- OUTSIDE RECORDS SUMMARY | ~2019-07-25 | XMS | Encounter Summary ---
Demographics + + + | Address | [address] | | | [place] [address] | + + + | Home Phone | | + + + | Preferred Language | Unknown | + + + | Marital Status | | + + + | Denominational Affiliation | 1001 | + + + [...] | + + + + + | Albre Mckeon | ECON | [address] | | | | | [place] [address] [place] | | | | | [address] | | + + + + + | Mechelle Vidal | ECON | [place] | | | | | [address] | | + + + + + Care Team Providers + +------+ + | Care Senior Functional Analyst Name | Role | Phone | [...] | | | | 2003 | | [address] | | | | | | [phone] | | | +--------+ + + + [...]
--- OUTSIDE RECORDS SUMMARY | ~2019-07-25 | XMS | Encounter Summary ---
Demographics + + + | Address | [address] | | | [place] [address] | + + + | Home Phone [...] [address] | | | | | [address] | | + + + + + | Mechelle Vidal | ECON | [place] | | | | | [address] | | + + + + + Care Team Providers + +------+ + | Care Merchandise Pickup/Receiving Associate Name | Role | Phone | [...] | | | | 2009 | | [address] | | | | | | [phone] | | | +--------+ + + + [...]
--- OUTSIDE RECORDS SUMMARY | ~2019-07-25 | XMS | Encounter Summary ---
Demographics + + + | Address | [address] | | | [place] [address] | + + + | Home Phone | | + + + | Preferred Language | Unknown | + + + | Marital Status | | + + + | Anabaptism Affiliation | 1001 | + + + | Race | Unknown | + + + | Ethnic Group | Unknown | + + + Author + + + | Author | [facility] | | | and [place] | + + + | Organization | [facility] | | | [...] [place] | | | | | [address] | | + + + + + | Mechelle Vidal | ECON | [place] | | | | | [address] | | + + + + + Care Team Providers + +------+ + | Care Spotlight Operator Name | Role | Phone | + +------+ + | Naeem Nair MD | PCP | | + +------+ + Encounter Details +--------+ + + + + | Date | Type | Department | Care Team | Description | +--------+ + + + + | 07/10/ | Hospital | [facility] | Catarino Timoteo N, | | | 2011 - | Encounter | MED CTR CANCER | [place] [address] | | | | | [place] [address] | [place] | | | 07/19/ | | [place] | [address] | | | 2011 | | [address] | [phone] | | | | | [phone] | | | +--------+ + + + [...] | [facility] | | | | [place] [facility] | | MEDICAL | | | [...] + | [facility] | [address] | [place] | [phone] | | [facility] | | [address] | | | - LABORATORY | | | | + + + + + | [place] [facility] | [address] | [place] | | | [facility] | | [address] | | | - LABORATORY | | | | + + + + + documented in this encounter Visit Diagnoses Not on filedocumented in this encounter"
--- OUTSIDE RECORDS SUMMARY | ~2019-07-25 | XMS | Encounter Summary ---
Demographics + + + | Address | [address] | | | [place] [address] | + + + | Home Phone [...] [address] | | | | | [address] | | + + + + + | Mechelle Vidal | ECON | [place] | | | | | [address] | | + + + + + Care Team Providers + +------+ + | Care Acid Tester Name | Role | Phone | [...] | | | | 2010 | | [address] | | | | | | [phone] | | | +--------+ + + + [...]
--- OUTSIDE RECORDS SUMMARY | ~2019-07-25 | XMS | Encounter Summary ---
Demographics + + + | Address | [address] | | | [place] [address] | + + + | Home Phone [...] [address] | | | | | [address] | | + + + + + | Mechelle Vidal | ECON | [place] | | | | | [address] | | + + + + + Care Team Providers + +------+ + | Care Investigative Research Specialist Name | Role | Phone | + +------+ + PCP | Unavailable | + +------+ + Encounter Details +--------+ + + + + | Date | Type | Department | Care Team | Description | +--------+ + + + + | 01/25/ | Hospital [facility] | | | | 2004 - | Encounter | MED CTR GENERIC OP | | | | | | CONV DEPT [address] | | | | 04/25/ | | [place], | | | | 2004 | | [place] [address] | | | | | | [phone] | | | +--------+ + + + [...]
--- OUTSIDE RECORDS SUMMARY | ~2019-07-25 | XMS | Encounter Summary ---
Demographics + + + | Address | [address] | | | [place] [address] | + + + | Home Phone [...] + | Author | [facility] | | | and Jorgeana | + + + | Organization | [facility] | | [...] [address] | | | | | [address] | | + + + + + | Mechelle Vidal | ECON | [place] | | | | | [address] | | + + + + + Care Team Providers + +------+ + | Care Flexographic Press Helper Name | Role | Phone | [...] | | | | 2007 | | [address] | | | | | | [phone] | | | +--------+ + + + [...]
--- OUTSIDE RECORDS SUMMARY | ~2019-07-25 | XMS | Clinical Summary ---
Demographics + + + | Address | [address] | | | [place] [address] | + + + | Home Phone [...] [address] | | | | | [address] | | + + + + + | Mechelle Vidal | ECON | [place] | | | | | [address] | | + + + + + Care Team Providers + +------+ + | Care Stock Plan Administrator Name | Role | Phone | [...] +--------+ +---------+--------+ | MEDICARE | MEDICA | [id number] | 02/18/20 | [phone] | | Medica | | | RE | | 00-Pre | 5 | | re | | | PART A | | sent | | | | | | AND B | | | | | | + +--------+ +--------+ +---------+--------+ | MEDICARE | MEDICA | [id number] | 02/18/20 | [phone] | | Medica | | | RE | | 00-Pre | 5 | | re | | | PART A | | sent | | | | | | AND B | | | | | | + +--------+ +--------+ +---------+--------+ | MEDICAID [place] | MEDICA | [id number] | Effect | [phone] | | Medica [...] [place] | | | 1 (Home) | [address] | | | | | | [phone] | | | | | | | 1 (Work) | | + +--------+ +--------+ + + | Akhil Mckeon | Person | Self | [birth year] | [address] | | | al/Fam | | 1935 | [phone] | [place] | | | [place] | | | 1 (Home) | [address] | + +--------+ +--------+ + + Advance Directives + + + + + | Type | Date Recorded | Patient | Explanation | | | | Peanut Shaker | | + + + + + | Power of | | | | | Batt Packer | | | | + + + + +"
--- OUTSIDE RECORDS SUMMARY | ~2019-07-25 | XMS | Encounter Summary ---
Demographics + + + | Address | [address] | | | [place] [address] | + + + | Home Phone | | + + + | Preferred Language | Unknown | + + + | Marital Status | | + + + | Episcopal Affiliation | 1001 | + + + [...] | | | | | [place] [address] | | | | | [address] | | + + + + + | Mechelle Vidal | ECON | [place] | | | | | [address] | | + + + + + Care Team Providers + +------+ + | Care Cover Remover Name | Role | Phone | + +------+ + PCP | Unavailable | + +------+ + Encounter Details +--------+ + + + + | Date | Type | Department | Care Team | Description | +--------+ + + + + | 01/09/ | Hospital | [facility] | Timoteo Toribio, | | | 2011 - | Encounter | MED CTR CANCER | [place] [address] | | | | | [place] [address] | [place] | | | 01/17/ | | [place], [place] | [address] | | | 2011 | | [address] | [phone] | | | | | [phone] | | | +--------+ + + + [...] continue to have his labs drawn in [place]. He will continue to see his other physicia ns as needed. DICTATED BY: Brianna Rodriguez MD Radiation Oncology JOB #: [id number] EXT JOB #:[id number] cc: MD Alia Loza MD Spencer N. Ashton, MD <Electronically Signed by Brianna Rodriguez MD> 01/10/12 1242 documented in this encounter Plan of Treatment Not on filedocumented as of this encounter Visit Diagnoses Not on filedocumented in this encounter"
--- OUTSIDE RECORDS SUMMARY | ~2019-07-25 | XMS | Clinical Summary ---
Demographics + + + | Address | [address] | | | [place] [address] | + + + | Home Phone [...] [address] | | | | | [address] | | + + + + + | Mechelle Vidal | ECON | [place] | | | | | [address] | | + + + + + Care Team Providers + +------+ + | Care Clinical Team Lead Name | Role | Phone | [...] +--------+ +---------+--------+ | MEDICARE | MEDICA | [id number] | 02/18/20 | [phone] | | Medica | | | RE | | 00-Pre | 5 | | re | | | PART A | | sent | | | | | | AND B | | | | | | + +--------+ +--------+ +---------+--------+ | MEDICARE | MEDICA | [id number] | 02/18/20 | [phone] | | Medica | | | RE | | 00-Pre | 5 | | re | | | PART A | | sent | | | | | | AND B | | | | | | + +--------+ +--------+ +---------+--------+ | MEDICAID [place] | MEDICA | [id number] | Effect | [phone] | | Medica [...] [place] | | | 1 (Home) | [address] | | | | | | [phone] | | | | | | | 1 (Work) | | + +--------+ +--------+ + + | Akhil Mckeon | Person | Self | [birth year] | | [address] | | | al/Fam | | 1935 | [phone] | [place] | | | [place] | | | 1 (Home) | [address] | + +--------+ +--------+ + + Advance Directives + + + + + | Type | Date Recorded | Patient | Explanation | | | | Manager Managed Backup Services | | + + + + + | Power of | | | | | Electrician Supervisor Substation | | | | + + + + +"
--- OUTSIDE RECORDS SUMMARY | ~2019-07-25 | XMS | Encounter Summary ---
Demographics + + + | Address | [address] | | | [place] [address] | + + + | Home Phone [...] Alber Mckeon | ECON | [address] | | | | | [place] [address] | | | | | [address] | | + + + + + | Mechelle Vidal | ECON | [place] | | | | | [address] | | + + + + + Care Team Providers + +------+ + | Care Baker Second Name | Role | Phone | + [...] | | | | 2008 | | [address] | | | | | | [phone] | | | +--------+ + + + [...]
--- OUTSIDE RECORDS SUMMARY | ~2019-07-25 | XMS | Encounter Summary ---
Demographics + + + | Address | [address] | | | [place] [address] | + + + | Home Phone [...] [address] | | | | | [address] | | + + + + + | Mechelle Vidal | ECON | [place] | | | | | [address] | | + + + + + Care Team Providers + +------+ + | Care Junior Engineer Name | Role | Phone | + +------+ + PCP | Unavailable | + +------+ + Encounter Details +--------+ + + + + | Date | Type | Department | Care Team | Description | +--------+ + + + + | 04/12/ | Hospital | [facility] | Timoteo Toribio, | | | 2010 - | Encounter | MED CTR CANCER | [place] [address] [facility] | | | | | [place] [address] | [place], [place] | | | 04/19/ | | [place], [place] | [address] | | | 2010 | | [address] | [phone] | | | | | [phone] | | | +--------+ + + + [...] ONCOLOGY FOLLOWUP NOTE DIAGNOSIS: Prostate adenocarcinoma, T3N0M0, [place]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 FOLLOWUP NOTE: Mr. Akhil Mckeon is [...] Timoteo Toribio MD Radiation Oncology JOB #: [id number] EXT JOB #:[id number] <Electronicall y Signed by Timoteo Toribio MD> 05/10/11 1600 documented in this encounter Plan of Treatment Not on filedocumented as of this encounter Visit Diagnoses Not on filedocumented in this encounter"
--- OUTSIDE RECORDS SUMMARY | ~2019-07-25 | XMS | Encounter Summary ---
Demographics + + + | Address | [address] | | | [place] [address] | + + + | Home Phone [...] [address] | | | | | [address] | | + + + + + | Mechelle Vidal | ECON | [place] | | | | | [address] | | + + + + + Care Team Providers + +------+ + | Care Iuss Master Analyst Name | Role | Phone | + +------+ + PCP | Unavailable | + +------+ + Encounter Details +--------+ + + + + | Date | Type | Department | Care Team | Description | +--------+ + + + + | 05/11/ | Hospital [facility] | | | | 2004 - | Encounter | MED CTR GENERIC OP | | | | | | CONV DEPT [address] | | | | 08/09/ | | [place], | | | | 2004 | | [place] [address] | | | | | | [phone] | | | +--------+ + + + [...]
--- OUTSIDE RECORDS SUMMARY | ~2019-07-25 | XMS | Encounter Summary ---
Demographics + + + | Address | [address] | | | [place] [address] | + + + | Home Phone | | + + + | Preferred Language | Unknown | + + + | Marital Status | | + + + | Jewish Affiliation | 1001 | + + + | Race | Unknown | + + + | Ethnic Group | Unknown | + + + Author + + + | Author | [facility] | | | and Jorgeana | + + + | Organization | [facility] | | | [...] [address] | | | | | [address] | | + + + + + | Mechelle Vidal | ECON | [place] | | | | | [address] | | + + + + + Care Team Providers + +------+ + | Care Supervisor Bindery Name | Role | Phone | + [...] | | | | 2009 | | [address] | | | | | | [phone] | | | +--------+ + + + [...]
--- OUTSIDE RECORDS SUMMARY | ~2019-07-25 | XMS | Encounter Summary ---
Demographics + + + | Address | [address] | | | [place] [address] | + + + | Home Phone [...] [address] | | | | | [address] | | + + + + + | Mechelle Vidal | ECON | [place] | | | | | [address] | | + + + + + Care Team Providers + +------+ + | Care Signwriter Name | Role | Phone | + [...] | | | | 2008 | | [address] | | | | | | [phone] | | | +--------+ + + + [...]
--- OUTSIDE RECORDS SUMMARY | ~2019-07-25 | XMS | Encounter Summary ---
Demographics + + + | Address | [address] | | | [place] [address] | + + + | Home Phone | | + + + | Preferred Language | Unknown | + + + | Marital Status | | + + + | Yazidi Affiliation | 1001 | + + + | Race | Unknown | + + + | Ethnic Group | Unknown | + + + Author + + + | Author | [facility] | | | and Jorgeana | + + + | Organization | [facility] | | [...] [address] | | | | | [address] | | + + + + + | Mechelle Vidal | ECON | [place] | | | | | [address] | | + + + + + Care Team Providers + +------+ + | Care Business Support Specialist Name | Role | Phone | [...] | | | | 2008 | | [address] | | | | | | [phone] | | | +--------+ + + + [...]
--- OUTSIDE RECORDS SUMMARY | ~2019-07-25 | XMS | Encounter Summary ---
Demographics + + + | Address | [address] | | | [place] [address] | + + + | Home Phone [...] [address] | | | | | [address] | | + + + + + | Mechelle Vidal | ECON | [place] | | | | | [address] | | + + + + + Care Team Providers + +------+ + | Care Hand Tennis Ball Coverer Name | Role | Phone | + [...] | | | | 2002 | | [address] | | | | | | [phone] | | | +--------+ + + + [...]
--- OUTSIDE RECORDS SUMMARY | ~2019-07-25 | XMS | Encounter Summary ---
Demographics + + + | Address | [address] | | | [place] [address] | + + + | Home Phone [...] [address] | | | | | [address] | | + + + + + | Mechelle Vidal | ECON | [place] | | | | | [address] | | + + + + + Care Team Providers + +------+ + | Care Spanish Medical Interpreter Name | Role | Phone | + +------+ + PCP | Unavailable | + +------+ + Encounter Details +--------+ + + + + | Date | Type | Department | Care Team | Description | +--------+ + + + + | 08/10/ | Hospital | [facility] | | | | 2005 - | Encounter | MED CTR CANCER | | | | | | CENTER [address] | | | | 08/19/ | | [place] | | | | 2005 | | [address] | | | | | | [phone] | | | +--------+ + + + [...]
--- OUTSIDE RECORDS SUMMARY | ~2019-07-25 | XMS | Encounter Summary ---
Demographics + + + | Address | [address] | | | [place] [address] | + + + | Home Phone [...] [address] | | | | | [address] | | + + + + + | Mechelle Vidal | ECON | [place] | | | | | [address] | | + + + + + Care Team Providers + +------+ + | Care Business Intelligence Director Name | Role | Phone | [...] | | | | 2007 | | [address] | | | | | | [phone] | | | +--------+ + + + [...]
--- OUTSIDE RECORDS SUMMARY | ~2019-07-25 | XMS | Encounter Summary ---
Demographics + + + | Address | [address] | | | [place] [address] | + + + | Home Phone | | + + + | Preferred Language | Unknown | + + + | Marital Status | | + + + | Pentecostal Affiliation | 1001 | + + + | Race | Unknown | + + + | Ethnic Group | Unknown | + + + Author + + + | Author | [facility] | | | and Jorgeana | + + + | Organization | [facility] | | [...] [address] | | | | | [address] | | + + + + + | Mechelle Vidal | ECON | [place] | | | | | [address] | | + + + + + Care Team Providers + +------+ + | Care Heat Treat Technician Name | Role | Phone | [...] | | | | 2009 | | [address] | | | | | | [phone] | | | +--------+ + + + [...]
--- OUTSIDE RECORDS SUMMARY | ~2019-07-25 | XMS | Encounter Summary ---
Demographics + + + | Address | [address] | | | [place] [address] | + + + | Home Phone [...] [address] | | | | | [address] | | + + + + + | Mechelle Vidal | ECON | [place] | | | | | [address] | | + + + + + Care Team Providers + +------+ + | Care Bridge Ironworker Name | Role | Phone | + [...] | | | | 2001 | | [address] | | | | | | [phone] | | | +--------+ + + + [...]
--- OUTSIDE RECORDS SUMMARY | ~2019-07-25 | XMS | Encounter Summary ---
Demographics + + + | Address | [address] | | | [place] [address] | + + + | Home Phone | | + + + | Preferred Language | Unknown | + + + | Marital Status | | + + + | Zoroastrian Affiliation | 1001 | + + + | Race | Unknown | + + + | Ethnic Group | Unknown | + + + Author + + + | Author | [facility] | | | and Jorgeana | + + + | Organization | [facility] | | | [...] [address] | | | | | [address] | | + + + + + | Mechelle Vidal | ECON | [place] | | | | | [address] | | + + + + + Care Team Providers + +------+ + | Care Senior Finance Manager Name | Role | Phone | + +------+ + PCP | Unavailable | + +------+ + Encounter Details +--------+ + + + + | Date | Type | Department | Care Team | Description | +--------+ + + + + | 04/10/ | Hospital | [facility] | Timoteo Toribio, | | | 2011 - | Encounter | MED CTR CANCER | [place] [address] [facility] | | | | | [place] [address] [address] | [place] | | | 04/19/ | | [place], [place] | [address] | | | 2011 | | [address] | [phone] | | | | | [phone] | | | +--------+ + + + [...] tend erness. He continues to work a [employer] every day. PHYSICAL EXAMINATION VITAL SIGNS: Weight [...] Bassam Cristina MD Radiation Oncology JOB #: [id number] EXT JOB #:[id number] cc: MD Alia Loza MD Spencer N. Ashton, MD <Electronically Signed by Bassam Cristina MD> 04/10/12 1458 documented in this encounter Plan of Treatment Not on filedocumented as of this encounter Visit Diagnoses Not on filedocumented in this encounter"
--- OUTSIDE RECORDS SUMMARY | ~2019-07-25 | XMS | Encounter Summary ---
Demographics + + + | Address | [address] | | | [place] [address] | + + + | Home Phone [...] [address] | | | | | [address] | | + + + + + | Mechelle Vidal | ECON | [place] | | | | | [address] | | + + + + + Care Team Providers + +------+ + | Care Finished Cloth Examiner Name | Role | Phone | [...] | | | | 2008 | | [address] | | | | | | [phone] | | | +--------+ + + + [...]
--- OUTSIDE RECORDS SUMMARY | ~2019-07-25 | XMS | Encounter Summary ---
Demographics + + + | Address | [address] | | | [place] [address] | + + + | Home Phone | | + + + | Preferred Language | Unknown | + + + | Marital Status | | + + + | Adventism Affiliation | 1001 | + + + | Race | Unknown | + + + | Ethnic Group | Unknown | + + + Author + + + | Author | [facility] | | | and Jorgeana | + + + | Organization | [facility] | | | [...] [place] | | | | | [address] | | + + + + + | Mechelle Vidal | ECON | [place] | | | | | [address] | | + + + + + Care Team Providers + +------+ + | Care Talent Buyer Name | Role | Phone | + +------+ + | Naeem Nair MD | PCP | | + +------+ + Encounter Details +--------+ + + + + | Date | Type | Department | Care Team | Description | +--------+ + + + + | 10/16/ | Hospital | [facility] | CatarinoTimoteo, | | | 2012 - | Encounter | MED CTR CANCER | [address] | | | | | [place] [address] | [place] | | | 10/17/ | | [place] | [address] | | | 2012 | | [address] | [phone] | | | | | [phone] | | | +--------+ + + + [...]
--- OUTSIDE RECORDS SUMMARY | ~2019-07-25 | XMS | Encounter Summary ---
Demographics + + + | Address | [address] | | | [place] [address] | + + + | Home Phone | | + + + | Preferred Language | Unknown | + + + | Marital Status | | + + + | Zoroastrianism Affiliation | 1001 | + + + | Race | Unknown | + + + | Ethnic Group | Unknown | + + + Author + + + | Author | [facility] | | | and [place] | + + + | Organization | [facility] | [...] [address] | | | | | [address] | | + + + + + | Mechelle Vidal | ECON | [place] | | | | | [address] | | + + + + + Care Team Providers + +------+ + | Care Heat Sealing Machine Operator Name | Role | Phone [...] | | | | 2003 | | [address] | | | | | | [phone] | | | +--------+ + + + [...]
--- OUTSIDE RECORDS SUMMARY | ~2019-07-25 | XMS | Encounter Summary ---
Demographics + + + | Address | [address] | | | [place] [address] | + + + | Home Phone [...] [address] | | | | | [address] | | + + + + + | Mechelle Vidal | ECON | [place] | | | | | [address] | | + + + + + Care Team Providers + +------+ + | Care Traffic Control Supervisor Name | Role | Phone | + +------+ + PCP | Unavailable | + +------+ + Encounter Details +--------+ + + + + | Date | Type | Department | Care Team | Description | +--------+ + + + + | 10/21/ | Hospital | [facility] | | | | 2001 | Encounter | MED CTR XRAY [address] | | | | | | [place] | | | | | | [place] [address] | | | | | | [phone] | | | +--------+ + + + [...]
--- OUTSIDE RECORDS SUMMARY | ~2019-07-25 | XMS | Encounter Summary ---
Demographics + + + | Address | [address] | | | [place] [address] | + + + | Home Phone [...] | + + + + + | lAber Mckeon | ECON | [address] | | | | | [place] | | | | | [address] | | + + + + + | Mechelle Vidal | ECON | [place] | | | | | [address] | | + + + + + Care Team Providers + +------+ + | Care Bridal Gown Fitter Name | Role | Phone | + +------+ + | Naeem Nair MD | PCP | | + +------+ + Encounter Details +--------+ + + + + | Date | Type | Department | Care Team | Description | +--------+ + + + + | 10/16/ | Hospital | [facility] | Catar[facility]oteo, | | | 2012 - | Encounter | MED CTR CANCER | [address] | | | | | [place] [address] | [place] | | | 10/17/ | | [place] | [address] | | | 2012 | | [address] | [phone] | | | | | [phone] | | | +--------+ + + + [...]
--- OUTSIDE RECORDS SUMMARY | ~2019-07-25 | XMS | Encounter Summary ---
Demographics + + + | Address | [address] | | | [place] [address] | + + + | Home Phone [...] [address] | | | | | [address] | | + + + + + | Mechelle Vidal | ECON | [place] | | | | | [address] | | + + + + + Care Team Providers + +------+ + | Care Supervisor Sewing Department Name | Role | Phone | + +------+ + PCP | Unavailable | + +------+ + Encounter Details +--------+ + + + + | Date | Type | Department | Care Team | Description | +--------+ + + + + | 11/07/ | Hospital | [facility] | | | | 2001 | Encounter | MED CTR XRAY [address] | | | | | | [place] | | | | | | [place] [address] | | | | | | [phone] | | | +--------+ + + + [...]
--- OUTSIDE RECORDS SUMMARY | ~2019-07-25 | XMS | Encounter Summary ---
Demographics + + + | Address | [address] | | | [place] [address] | + + + | Home Phone [...] [address] | | | | | [address] | | + + + + + | Mechelle Vidal | ECON | [place] | | | | | [address] | | + + + + + Care Team Providers + +------+ + | Care Sales Order Specialist Name | Role | Phone | [...] | | | | 2009 | | [address] | | | | | | [phone] | | | +--------+ + + + [...]
--- OUTSIDE RECORDS SUMMARY | ~2019-07-25 | XMS | Encounter Summary ---
Demographics + + + | Address | [address] | | | [place] [address] | + + + | Home Phone [...] [address] | | | | | [address] | | + + + + + | Mechelle Vidal | ECON | [place] | | | | | [address] | | + + + + + Care Team Providers + +------+ + | Care Automatic Corn Grinder Operator Name | Role | Phone | [...] | | | | 2005 | | [address] | | | | | | [phone] | | | +--------+ + + + [...]
--- OUTSIDE RECORDS SUMMARY | ~2019-07-25 | XMS | Encounter Summary ---
Demographics + + + | Address | [address] | | | [place] [address] | + + + | Home Phone [...] [address] | | | | | [address] | | + + + + + | Mechelle Vidal | ECON | [place] | | | | | [address] | | + + + + + Care Team Providers + +------+ + | Care Big Data Software Engineer Name | Role | Phone | [...] | | | | 01/18/ | | [place], | | | | 2004 | | [place] [address] | | | | | | [phone] | | | +--------+ + + + [...]
--- OUTSIDE RECORDS SUMMARY | ~2019-07-25 | XMS | Encounter Summary ---
Demographics + + + | Address | [address] | | | [place] [address] | + + + | Home Phone [...] [address] | | | | | [address] | | + + + + + | Mechelle Vidal | ECON | [place] | | | | | [address] | | + + + + + Care Team Providers + +------+ + | Care Grounds Maintenance Supervisor Name | Role | Phone | [...] | | | | 2006 | | [address] | | | | | | [phone] | | | +--------+ + + + [...]
--- OUTSIDE RECORDS SUMMARY | ~2019-07-25 | XMS | Clinical Summary ---
Demographics + + + | Address | [address] | | | [place] [address] | + + + | Home Phone [...] + + + | Author | [facility] (Historical as of | | | 04-05-19) | + + + | Organization | [facility] (Historical as of | | | 04-05-19) [...] [place], [place] | | | | | [address] | | + + + + + Care Team Providers + +------+ + | Care Film Sound Coordinator Name | Role | Phone | [...] +------+-------+ + | MEDICARE | MEDICA | [id number] | | | [address] | | | RE | | | | [place] [address] | | | IP-OP | | | | | + +--------+ +------+-------+ + | MEDICAID | MEDICA | [id number] | | | [address] | | | [place] | | | | [place] | | | [place] | | | | [address] | + +--------+ +------+-------+ + + +--------+ [...] | | | [place] | | | [address] | [address] | + +--------+ +--------+ + +"
--- OUTSIDE RECORDS SUMMARY | ~2019-07-25 | XMS | Encounter Summary ---
Demographics + + + | Address | [address] | | | [place] [address] | + + + | Home Phone [...] [place] | | | | | [address] | | + + + + + | Mechelle Vidal | ECON | [place] | | | | | [address] | | + + + + + Care Team Providers + +------+ + | Care Journeyman Pipe Fitter Name | Role | Phone | [...] | | [place] | [place] [address] | | | | | [address] | [phone] | | | | | [phone] | | | +--------+ + + + [...] 2.49 cm AR Dec | | | Owsley: 1.99 m/s2 AR Dec Time: 2107.85 ms [...] m/s Lateral E/e': 10.58 | | | Rn Transfer: [email or web address] Authenticated by: Hipolito Suarez | | | Date/Time: 08-03-2017 14:15:57 | | + + + + + | Procedure Note | + + | Theodore, Rad Conversion - 04/10/2019 8:37 PM PDT Patient Name: Eileen Mckeon | | of : 1935 Performing Physician: Hipolito | | [facility] INDICATIONS------ | | -----Murmur CONCLUSIONS [...] cmLVIDd: 3.73 cmLVPWd: 1.02 cmLVOT Area: 3.12 tn2TLRO Diam: | | 1.99 cm%FS: 38.08 %EF(Teich): [...] (A-L): 15.42 ml/m2LAAs | | A2C: 12.67 [id number] A-L A2C: 30.25 mlLALs A2C: 4.50 cmLAAs A4C: 14.55 gi0DUVXR | | A-L A4C: 41.62 mlLALs A4C: 4.31 cmRAAs: 13.92 up0NARZR A-L: 37.79 mlRAESV MOD: | | 35.28 mlRALs: 4.35 cmTAPSE: 2.49 cmAR Dec Owsley: 1.99 m/s2AR Dec Time: 2106. | | msAR maxP.62 mmHgAR PHT: 611.27 msAR Vmax: 4.20 m/Alva maxP.12 mmHgAV | | meanP.84 mmHgAV Vmax: 1.59 m/Alva Vmean: 1.14 m/Alva VTI: 34.41 cmAVA Vmax: | | 2.76 cm2AVA (VTI): 3.27 kp4FLAN Vmax: 0.00 cm2/m2AVAI (VTI): 0.00 cm2/m2LVOT | | maxP.93 mmHgLVOT meanP.33 mmHgLVSI Dopp: 47.98 ml/m2LVSV Dopp: 112.76 | | mlLVOT Vmax: 1.40 m/sLVOT Vmean: 1.11 m/sLVOT VTI: 36.07 cmMV A Jerry: 0.91 m/sMV | | DecT: 209.15 msMV E Jerry: 0.82 m/sMV E/A Ratio: 0.90MV PHT: 60.65 msMVA By PHT: | | 3.62 mf9Npvxwi e': 0.06 m/sSeptal E/e': 12.63Lateral e': 0.07 m/sLateral E/e': | | 10.58 Rn Transfer: [email or web address] by: Hipolito Wooten Date/Time: 08-03-2017 | [...] | |TAPSE: 2.49 cm | |AR Dec Owsley: 1.99 m/s2 | |AR Dec Time: 2107.85 [...] | |Lateral E/e': 10.58 | | | |Rn Transfer: DBS | |Authenticated by: Hipolito Cullen | [...]
--- OUTSIDE RECORDS SUMMARY | ~2019-07-25 | XMS | Encounter Summary ---
Demographics + + + | Address | [address] | | | [place] [address] | + + + | Home Phone | | + + + | Preferred Language | Unknown | + + + | Marital Status | | + + + | Mandaeism Affiliation | 1001 | + + + [...] [address] | | | | | [address] | | + + + + + | Mechelle Vidal | ECON | [place] | | | | | [address] | | + + + + + Care Team Providers + +------+ + | Care Butter Wrapper Name | Role | Phone | + [...] | | | | 2003 | | [address] | | | | | | [phone] | | | +--------+ + + + [...]
--- OUTSIDE RECORDS SUMMARY | ~2019-07-25 | XMS | Encounter Summary ---
Demographics + + + | Address | [address] | | | [place] [address] | + + + | Home Phone [...] [address] | | | | | [address] | | + + + + + | Mechelle Vidal | ECON | [place] | | | | | [address] | | + + + + + Care Team Providers + +------+ + | Care Professional Programmer Analyst Name | Role | Phone | [...] | | | | 2003 | | [address] | | | | | | [phone] | | | +--------+ + + + [...]
--- OUTSIDE RECORDS SUMMARY | ~2019-07-25 | XMS | Encounter Summary ---
Demographics + + + | Address | [address] | | | [place] [address] | + + + | Home Phone [...] [address] | | | | | [address] | | + + + + + | Mechelle Vidal | ECON | [place] | | | | | [address] | | + + + + + Care Team Providers + +------+ + | Care Candlemaking Laborer Name | Role | Phone | + +------+ + PCP | Unavailable | + +------+ + Encounter Details +--------+ + + + + | Date | Type | Department | Care Team | Description | +--------+ + + + + | 08/10/ | Hospital | [facility] | | | | 2004 - | Encounter | MED CTR GENERIC OP | | | | | | CONV DEPT [address] | | | | 11/08/ | | [place], | | | | 2005 | | [place] [address] | | | | | | [phone] | | | +--------+ + + + [...]
--- OUTSIDE RECORDS SUMMARY | ~2019-07-25 | XMS | Encounter Summary ---
Demographics + + + | Address | [address] | | | [place] [address] | + + + | Home Phone [...] [address] | | | | | [address] | | + + + + + | Mechelle Vidal | ECON | [place] | | | | | [address] | | + + + + + Care Team Providers + +------+ + | Care Executive Search Consultant Name | Role | Phone | + [...] | | | | 2009 | | [address] | | | | | | [phone] | | | +--------+ + + + [...]
== END 2019-07-25 18:00 | disposition home or self-care (01) ==
LOC: ED 15:49
PROC: 4A0D7LZ Measurement of Urinary Volume, Via Natural or Artificial Opening (ICD-10-PCS; principal; 2019-07-25)
PROC: 0T9B70Z Drainage of Bladder with Drainage Device, Via Natural or Artificial Opening (ICD-10-PCS; 2019-07-25)
DX: R33.9 Retention of urine, unspecified (principal); N18.9 Chronic kidney disease, unspecified; Z79.899 Other long term (current) drug therapy
CPT/HCPCS: 51702; 51798; 81001; 99283-25

== ENCOUNTER 2019-07-27 18:13 | Emergency (ER) | payer MEDICARE, OTHER ==
--- OUTSIDE RECORDS SUMMARY | ~2019-07-27 | XMS | Encounter Summary ---
Demographics + + + | Address | [address] | | | [place] [address] | + + + | Home Phone | | + + + | Preferred Language | Unknown | + + + | Marital Status | | + + + | Latter Day Affiliation | 1001 | + + + | Race | Unknown | + + + | Ethnic Group | Unknown | + + + Author + + + | Author | [facility] | | | and [place] | + + + | Organization | [facility] | | | [...] [address] | | | | | [place] | | | | | [address] | | + + + + + | Mechelle Vidal | ECON | [place] | | | | | [address] | | + + + + + Care Team Providers + +------+ + | Care Control Room Technician Name | Role | Phone | + +------+ + | Naeem Nair MD | PCP | | + +------+ + Encounter Details +--------+ + + + + | Date | Type | Department | Care Team | Description | +--------+ + + + + | 08/03/ | Orders Only | [facility] | Braxton Ruelas | | | 2017 | | CONVERSION 888 | MD Daniel [address] | | | | [address] | [place] | | | | | [place] | [place] [address] | | | | | [address] | [phone] | | | | | [phone] | | | +--------+ + + + [...] Not on filedocumented as of this encounter Procedures + +--------+ + + + | Procedure Name | Priori | Date/Time | Associated Diagnosis | Comments | | | ty | | | | + +--------+ + + + | ECHO INTERPRETATION | Routin | 08/03/2017 | | Results for this | | OF OUTSIDE FILMS | e | 12:12 PM | | procedure are in the | | | | PST | | results section. | + +--------+ + + + documented in this encounter Results ECHO Interpretation of Outside Films (08/03/2017 12:12 PM PST) + + | Specimen | + + | | + + + + + | Impressions | Performed At | + + + | 1. The left ventricle is normal in size, wall thickness and | | | hyperdynamic systolic function EF > 70%. 2. The diastolic filling | | | pattern indicates impaired relaxation consistent with mild dysfunction | | | (Grade I). 3. The right ventricle is normal in size and function. | | | 4. The aortic valve is mildly calcified with mild aortic | | | regurgitation. 5. There is no pericardial effusion. | | + + + + + + | Narrative | Performed At | + + + | Patient Name: Akhil Mckeon Date of : 1935 | | | Performing Physician: Hipolito Cullen | | | | | | INDICATIONS Murmur CONCLUSIONS 1. The | | | left ventricle is normal in size, wall thickness and hyperdynamic | | | systolic function EF > 70%. 2. The diastolic filling pattern | | | indicates impaired relaxation consistent with mild dysfunction (Grade | | | I). 3. The right ventricle is normal in size and function. 4. The | | | aortic valve is mildly calcified with mild aortic regurgitation. 5. | | | There is no pericardial effusion. FINDINGS -------- ECG rhythm: | | | Sinus rhythm. Study: A 2-dimensional transthoracic echocardiogram | | | with m-mode, spectral and color flow Doppler was perfomed. Study: | | | This was a technically adequate study. Left Ventricle: Left | | | ventricular systolic function is hyperdynamic with an estimated EF of | | | >70%. Left Ventricle: The left ventricle cavity size is normal. Left | | | Ventricle: Left ventricular wall thickness is normal. Left | | | Ventricle: The diastolic filling pattern indicates impaired relaxation | | | consistent with mild dysfunction (Grade I). Right Ventricle: The | | | right ventricle is normal in size and function. Left Atrium: The left | | | atrium is normal in size. Right Atrium: The right atrium is normal | | | in size. Aortic Valve: Aortic valve is trileaflet. Aortic Valve: The | | | aortic valve is mildly calcified. Aortic Valve: There is mild aortic | | | regurgitation. Aortic Valve: The aortic pressure half-time by | | | doppler is 611ms. Aortic Valve: There is no evidence of aortic | | | stenosis. Mitral Valve: Normal appearing mitral valve. Mitral Valve: | | | No mitral regurgitation. Tricuspid Valve: The tricuspid valve | | | appears structurally normal. Tricuspid Valve: Trace tricuspid | | | regurgitation present. Tricuspid Valve: There is no evidence of | | | pulmonary hypertension. Tricuspid Valve: The right ventricular | | | systolic pressure (pulmonary artery systolic pressure), as measured by | | | Doppler, is {RVSP}. Tricuspid Valve: Pulmonary artery systolic | | | pressure could not be assessed due to the absence of adequate TR jet. | | | Pulmonic Valve: Pulmonic valve appears structurally normal. Pulmonic | | | Valve: Trace pulmonic regurgitation. Pericardium: There is no | | | pericardial effusion. Pericardium: No pleural effusion seen. | | | IVC/Hepatic Veins: The inferior vena cava is normal in size and | | | collapses > 50 % with sniff, indicating normal central venous | | | pressures. Aorta: The aortic root, ascending aorta and aortic arch | | | are normal. MEASUREMENTS Ao asc: 3.24 cm Ao | | | sinus: 3.[address] junct: 2.95 cm LA Diam: 3.23 cm | | | EDV(Teich): 59.49 ml IVSd: 0.98 cm LVIDd: 3.73 cm LVPWd: | | | 1.02 cm LVOT Area: 3.12 cm2 LVOT Diam: 1.99 cm %FS: | | | 38.08 % EF(Teich): 69.10 % ESV(Teich): 18.38 ml LVIDs: | | | 2.31 cm SV(Teich): 41.11 ml RVIDd: 2.87 cm LVEF MOD A2C: | | | 61.16 % SV MOD A2C: 43.78 ml LVEF MOD A4C: 68.79 % SV MOD | | | A4C: 56.77 ml EF Biplane: 65.00 % LVEDV MOD BP: 77.85 ml | | | LVESV MOD BP: 27.24 ml LVEDV MOD A2C: 71.58 ml LVLd A2C: | | | 7.59 cm LVEDV MOD A4C: 82.53 ml LVLd A4C: 7.81 cm LVESV MOD | | | A2C: 27.79 ml LVLs A2C: 5.71 cm LVESV MOD A4C: 25.75 ml | | | LVLs A4C: 5.99 cm LAESV(A-L): 36.24 ml LAESV Index (A-L): | | | 15.42 ml/m2 LAAs A2C: 12.67 cm2 LAESV A-L A2C: 30.25 ml LALs | | | A2C: 4.50 cm LAAs A4C: 14.55 cm2 LAESV A-L A4C: 41.62 ml | | | LALs A4C: 4.31 cm RAAs: 13.92 cm2 RAESV A-L: 37.79 ml | | | RAESV MOD: 35.28 ml RALs: 4.35 cm TAPSE: 2.49 cm AR Dec | | | [place]: 1.99 m/s2 AR Dec Time: 2107.85 ms AR maxP.62 | | | mmHg AR PHT: 611.27 ms AR Vmax: 4.20 m/s AV maxP.12 | | | mmHg AV meanP.84 mmHg AV Vmax: 1.59 m/s AV Vmean: 1.14 | | | m/s AV VTI: 34.41 cm ANNIA Vmax: 2.76 cm2 ANNIA (VTI): 3.27 | | | cm2 AVAI Vmax: 0.00 cm2/m2 AVAI (VTI): 0.00 cm2/m2 LVOT | | | maxP.93 mmHg LVOT meanP.33 mmHg LVSI Dopp: 47.98 | | | ml/m2 LVSV Dopp: 112.76 ml LVOT Vmax: 1.40 m/s LVOT Vmean: | | | 1.11 m/s LVOT VTI: 36.07 cm MV A Jerry: 0.91 m/s MV DecT: | | | 209.15 ms MV E Jerry: 0.82 m/s MV E/A Ratio: 0.90 MV PHT: | | | 60.65 ms MVA By PHT: 3.62 cm2 Septal e': 0.06 m/s Septal | | | E/e': 12.63 Lateral e': 0.07 m/s Lateral E/e': 10.58 | | | Turret Lathe Machinist: REBEKAH Authenticated by: Hipolito Suarez | | | Date/Time: 08-03-2017 14:15:57 | | + + + + + | Procedure Note | + + | Theodore, Rad Conversion - 04/10/2019 8:37 PM PDT Patient Name: Eileen Mckeon | | of : 1935 Performing Physician: Hipolito | | [facility] INDICATIONS------ | | -----Murmur CONCLUSIONS 1. The left ventricle is normal in size, wall | | thickness and hyperdynamic systolic function EF > 70%.2. The diastolic filling pattern | | indicates impaired relaxation consistent with mild dysfunction (Grade I).3. The right | | ventricle is normal in size and function.4. The aortic valve is mildly calcified with | | mild aortic regurgitation.5. There is no pericardial effusion. FINDINGS--------ECG | | rhythm: Sinus rhythm.Study: A 2-dimensional transthoracic echocardiogram with m-mode, | | spectral and color flow Doppler was perfomed.Study: This was a technically adequate | | study.Left Ventricle: Left ventricular systolic function is hyperdynamic with an | | estimated EF of >70%.Left Ventricle: The left ventricle cavity size is normal.Left | | Ventricle: Left ventricular wall thickness is normal.Left Ventricle: The diastolic | | filling pattern indicates impaired relaxation consistent with mild dysfunction (Grade | | I).Right Ventricle: The right ventricle is normal in size and function.Left Atrium: The | | left atrium is normal in size.Right Atrium: The right atrium is normal in size.Aortic | | Valve: Aortic valve is trileaflet.Aortic Valve: The aortic valve is mildly | | calcified.Aortic Valve: There is mild aortic regurgitation.Aortic Valve: The aortic | | pressure half-time by doppler is 611ms.Aortic Valve: There is no evidence of aortic | | stenosis.Mitral Valve: Normal appearing mitral valve.Mitral Valve: No mitral | | regurgitation.Tricuspid Valve: The tricuspid valve appears structurally normal.Tricuspid | | Valve: Trace tricuspid regurgitation present.Tricuspid Valve: There is no evidence of | | pulmonary hypertension.Tricuspid Valve: The right ventricular systolic pressure | | (pulmonary artery systolic pressure), as measured by Doppler, is {RVSP}.Tricuspid Valve: | | Pulmonary artery systolic pressure could not be assessed due to the absence of adequate | | TR jet.Pulmonic Valve: Pulmonic valve appears structurally normal.Pulmonic Valve: Trace | | pulmonic regurgitation.Pericardium: There is no pericardial effusion.Pericardium: No | | pleural effusion seen.IVC/Hepatic Veins: The inferior vena cava is normal in size and | | collapses > 50 % with sniff, indicating normal central venous pressures.Aorta: The | | aortic root, ascending aorta and aortic arch are normal. MEASUREMENTS Ao | | asc: 3.24 cmAo sinus: 3.[address] junct: 2.95 cmLA Diam: 3.23 cmEDV(Teich): | | 59.49 mlIVSd: 0.98 cmLVIDd: 3.73 cmLVPWd: 1.02 cmLVOT Area: 3.12 [id number] Diam: | | 1.99 cm%FS: 38.08 %EF(Teich): 69.10 %ESV(Teich): 18.38 mlLVIDs: 2.31 | | cmSV(Teich): 41.11 mlRVIDd: 2.87 cmLVEF MOD A2C: 61.16 %SV MOD A2C: 43.78 mlLVEF | | MOD A4C: 68.79 %SV MOD A4C: 56.77 mlEF Biplane: 65.00 %LVEDV MOD BP: 77.85 | | mlLVESV MOD BP: 27.24 mlLVEDV MOD A2C: 71.58 mlLVLd A2C: 7.59 cmLVEDV MOD A4C: | | 82.53 mlLVLd A4C: 7.81 cmLVESV MOD A2C: 27.79 mlLVLs A2C: 5.71 cmLVESV MOD A4C: | | 25.75 mlLVLs A4C: 5.99 cmLAESV(A-L): 36.24 mlLAESV Index (A-L): 15.42 ml/m2LAAs | | A2C: 12.67 [id number] A-L A2C: 30.25 mlLALs A2C: 4.50 cmLAAs A4C: 14.55 qn2FESGO | | A-L A4C: 41.62 mlLALs A4C: 4.31 cmRAAs: 13.92 [id number] A-L: 37.79 mlRAESV MOD: | | 35.28 mlRALs: 4.35 cmTAPSE: 2.49 cmAR Dec [place]: 1.99 m/s2AR Dec Time: 2106. | | msAR maxP.62 mmHgAR PHT: 611.27 msAR Vmax: 4.20 m/Alva maxP.12 mmHgAV | | meanP.84 mmHgAV Vmax: 1.59 m/Alva Vmean: 1.14 m/Alva VTI: 34.41 cmAVA Vmax: | | 2.76 cm2AVA (VTI): 3.27 gn9LCVP Vmax: 0.00 cm2/m2AVAI (VTI): 0.00 cm2/m2LVOT | | maxP.93 mmHgLVOT meanP.33 mmHgLVSI Dopp: 47.98 ml/m2LVSV Dopp: 112.76 | | mlLVOT Vmax: 1.40 m/sLVOT Vmean: 1.11 m/sLVOT VTI: 36.07 cmMV A Jerry: 0.91 m/sMV | | DecT: 209.15 msMV E Jerry: 0.82 m/sMV E/A Ratio: 0.90MV PHT: 60.65 msMVA By PHT: | | 3.62 ay4Sjhzhi e': 0.06 m/sSeptal E/e': 12.63Lateral e': 0.07 m/sLateral E/e': | | 10.58 Turret Lathe Machinist: REBEKAHAuthenticated by: Hipolito Wooten Date/Time: 08-03-2017 | | 14:15:57 IMPRESSION: 1. The left ventricle is normal in size, wall thickness and | | hyperdynamic systolic function EF > 70%.2. The diastolic filling pattern indicates | | impaired relaxation consistent with mild dysfunction (Grade I).3. The right ventricle is | | normal in size and function.4. The aortic valve is mildly calcified with mild aortic | | regurgitation.5. There is no pericardial effusion. | |Ao sinus: 3.79 cm | |Ao st junct: 2.95 cm | |LA Diam: 3.23 cm | |EDV(Teich): 59.49 ml | |IVSd: 0.98 cm | |LVIDd: 3.73 cm | |LVPWd: 1.02 cm | |LVOT Area: 3.12 cm2 | |LVOT Diam: 1.99 cm | |%FS: 38.08 % | |EF(Teich): 69.10 % | |ESV(Teich): 18.38 ml | |LVIDs: 2.31 cm | |SV(Teich): 41.11 ml | |RVIDd: 2.87 cm | |LVEF MOD A2C: 61.16 % | |SV MOD A2C: 43.78 ml | |LVEF MOD A4C: 68.79 % | |SV MOD A4C: 56.77 ml | |EF Biplane: 65.00 % | |LVEDV MOD BP: 77.85 ml | |LVESV MOD BP: 27.24 ml | |LVEDV MOD A2C: 71.58 ml | |LVLd A2C: 7.59 cm | |LVEDV MOD A4C: 82.53 ml | |LVLd A4C: 7.81 cm | |LVESV MOD A2C: 27.79 ml | |LVLs A2C: 5.71 cm | |LVESV MOD A4C: 25.75 ml | |LVLs A4C: 5.99 cm | |LAESV(A-L): 36.24 ml | |LAESV Index (A-L): 15.42 ml/m2 | |LAAs A2C: 12.67 cm2 | |LAESV A-L A2C: 30.25 ml | |LALs A2C: 4.50 cm | |LAAs A4C: 14.55 cm2 | |LAESV A-L A4C: 41.62 ml | |LALs A4C: 4.31 cm | |RAAs: 13.92 cm2 | |RAESV A-L: 37.79 ml | |RAESV MOD: 35.28 ml | |RALs: 4.35 cm | |TAPSE: 2.49 cm | |AR Dec [place]: 1.99 m/s2 | |AR Dec Time: 2107.85 ms | |AR maxP.62 mmHg | |AR PHT: 611.27 ms | |AR Vmax: 4.20 m/s | |AV maxP.12 mmHg | |AV meanP.84 mmHg | |AV Vmax: 1.59 m/s | |AV Vmean: 1.14 m/s | |AV VTI: 34.41 cm | |ANNIA Vmax: 2.76 cm2 | |ANNIA (VTI): 3.27 cm2 | |AVAI Vmax: 0.00 cm2/m2 | |AVAI (VTI): 0.00 cm2/m2 | |LVOT maxP.93 mmHg | |LVOT meanP.33 mmHg | |LVSI Dopp: 47.98 ml/m2 | |LVSV Dopp: 112.76 ml | |LVOT Vmax: 1.40 m/s | |LVOT Vmean: 1.11 m/s | |LVOT VTI: 36.07 cm | |MV A Jerry: 0.91 m/s | |MV DecT: 209.15 ms | |MV E Jerry: 0.82 m/s | |MV E/A Ratio: 0.90 | |MV PHT: 60.65 ms | |MVA By PHT: 3.62 cm2 | |Septal e': 0.06 m/s | |Septal E/e': 12.63 | |Lateral e': 0.07 m/s | |Lateral E/e': 10.58 | | | |Turret Lathe Machinist: DBS | |Authenticated by: Hipolito Cullen | |Report Date/Time: 08-03-2017 14:15:57 | | | |IMPRESSION: | |1. The left ventricle is normal in size, wall thickness and hyperdynamic systolic function EF > 70%. | |2. The diastolic filling pattern indicates impaired relaxation consistent with mild dysfunc tion (Grade I). | |3. The right ventricle is normal in size and function. | |4. The aortic valve is mildly calcified with mild aortic regurgitation. | |5. There is no pericardial effusion. | + + documented in this encounter Visit Diagnoses Not on filedocumented in this encounter"
--- OUTSIDE RECORDS SUMMARY | ~2019-07-27 | XMS | Encounter Summary ---
Demographics + + + | Address | [address] | | | [place] [address] | + + + | Home Phone | | + + + | Preferred Language | Unknown | + + + | Marital Status | | + + + | Anabaptism Affiliation | 1001 | + + + | Race | Unknown | + + + | Ethnic Group | Unknown | + + + Author + + + | Author | [facility] | | | and [place] | + + + | Organization | [facility] | | | [...] [address] | | | | | [address] | | + + + + + | Mechelle Vidal | ECON | [place] | | | | | [address] | | + + + + + Care Team Providers + +------+ + | Care Physician/Ophthalmologist Name | Role | Phone | + +------+ + PCP | Unavailable | + +------+ + Encounter Details +--------+ + + + + | Date | Type | Department | Care Team | Description | +--------+ + + + + | 11/07/ | Hospital | [facility] | | | | 2001 | Encounter | MED CTR XRAY [address] | | | | | | [place] | | | | | | [place] [address] | | | | | | [phone] | | | +--------+ + + + [...]
--- OUTSIDE RECORDS SUMMARY | ~2019-07-27 | XMS | Encounter Summary ---
Demographics + + + | Address | [address] | | | [place] [address] | + + + | Home Phone | | + + + | Preferred Language | Unknown | + + + | Marital Status | | + + + | Amish Affiliation | 1001 | + + + | Race | Unknown | + + + | Ethnic Group | Unknown | + + + Author + + + | Author | [facility] | | | and [place] | + + + | Organization | [facility] | | | [...] [address] | | | | | [address] | | + + + + + | Mechelle Vidal | ECON | [place] | | | | | [address] | | + + + + + Care Team Providers + +------+ + | Care Longwall Headgate Operator Name | Role | Phone | + +------+ + PCP | Unavailable | + +------+ + Encounter Details +--------+ + + + + | Date | Type | Department | Care Team | Description | +--------+ + + + + | 06/28/ | Hospital | [facility] | Timoteo Toribio, | | | 2010 - | Encounter | MED CTR CANCER | [place] [address] | | | | | [place] [address] | [place] | | | 07/19/ | | [place] | [address] | | | 2010 | | [address] | [phone] | | | | | [phone] | | | +--------+ + + + [...] Timoteo Toribio MD Radiation Oncology JOB #: [id number] EXT JOB #:[id number] cc: MD Alia Loza MD <Electronically Signed by Timoteo Toribio MD> 07/15/11 1100 documented in this encounter Plan of Treatment Not on filedocumented as of this encounter Visit Diagnoses Not on filedocumented in this encounter"
--- OUTSIDE RECORDS SUMMARY | ~2019-07-27 | XMS | Clinical Summary ---
Demographics + + + | Address | [address] | | | [place] [address] | + + + | Home Phone | | + + + | Preferred Language | Unknown | + + + | Marital Status | Unknown | + + + | Roman Catholic Affiliation | Unknown | + + + | Race | Unknown | + + + | Ethnic Group | Unknown | + + + Author + + + | Author | [facility] (Historical as of | | | 04-05-19) | + + + | Organization | [facility] (Historical as of | | | 04-05-19) | + + + | Address | Unknown | + + + | Phone | Unavailable | + + + Support + + + + + | Name | Relationship | Address | Phone | + + + + + | No,Contact | ECON | [address] | | | | | [place], [place] | | | | | [address] | | + + + + + Care Team Providers + +------+ + | Care Ampoule Filler Name | Role | Phone | + +------+ + PP | Unavailable | + +------+ + Allergies Not on File Current Medications Not on file Active Problems Not on file Social History + +-------+ +--------+------+ | Tobacco [...] on file | | + + + Plan of Treatment + + + + + | Health Maintenance | Due Date | Last Done | Comments | + + + + + | Vaccine: | | | | | Dtap/Tdap/Td (1 - | 4 | | | | Tdap) | | | | + + + + + | Vaccine: Zoster (1 | | | | | of 2) | 5 | | | + + + + + | Vaccine: | | | | | Pneumococcal 65+ | 0 | | | | Low/Medium Risk (1 | | | | | of 2 - PCV13) | | | | + + + + + | Vaccine: Influenza | | | | | (#1) | 9 | | | + + + + + Results Not on filefrom Last 3 Months Insurance + +--------+ +------+-------+ + | Payer | Benefi | Subscriber | Type | Phone | Address | | | t Plan | ID | | | | | | / | | | | | | | Group | | | | | + +--------+ +------+-------+ + | MEDICARE | MEDICA | [id number] | | | [address] | | | RE | | | | [place] [address] | | | IP-OP | | | | | + +--------+ +------+-------+ + | MEDICAID | MEDICA | [id number] | | | [address] | | | ID | | | | [place] | | | [place] | | | | [address] | + +--------+ +------+-------+ + + +--------+ +--------+ + + | Guarantor Name | Accoun | Relation to | Date | Phone | Billing Address | | | t Type | Patient | of | | | | | | | | | | + +--------+ +--------+ + + | CHRIS SCHWARTZ | Person | Self [birth year] | Home: | [address] | | | al/Fam | | 1935 | [phone] [place] | | | [place] | | | [address] | [address] | + +--------+ +--------+ + +"
--- OUTSIDE RECORDS SUMMARY | ~2019-07-27 | XMS | Encounter Summary ---
Demographics + + + | Address | [address] | | | [place] [address] | + + + | Home Phone | | + + + | Preferred Language | Unknown | + + + | Marital Status | | + + + | Jewish Affiliation | 1001 | + + + [...] [address] | | | | | [address] | | + + + + + | Mechelle Vidal | ECON | [place] | | | | | [address] | | + + + + + Care Team Providers + +------+ + | Care Radiopharmacist Name | Role | Phone | + +------+ + PCP | Unavailable | + +------+ + Encounter Details +--------+ + + + + | Date | Type | Department | Care Team | Description | +--------+ + + + + | 11/15/ | Hospital | [facility] | | | | 2005 - | Encounter | MED CTR GENERIC OP | | | | | | CONV DEPT [address] | | | | 11/17/ | | [place], | | | | 2005 | | [place] [address] | | | | | | [phone] | | | +--------+ + + + [...]
--- OUTSIDE RECORDS SUMMARY | ~2019-07-27 | XMS | Encounter Summary ---
Demographics + + + | Address | [address] | | | [place] [address] | + + + | Home Phone | | + + + | Preferred Language | Unknown | + + + | Marital Status | | + + + | Muslim Affiliation | 1001 | + + + | Race | Unknown | + + + | Ethnic Group | Unknown | + + + Author + + + | Author | [facility] | | | and Jorgeana | + + + | Organization | [facility] | | | [...] [address] | | | | | [address] | | + + + + + | Mechelle Vidal | ECON | [place] | | | | | [address] | | + + + + + Care Team Providers + +------+ + | Care Cash Posting Specialist Name | Role | Phone | + +------+ + PCP | Unavailable | + +------+ + Encounter Details +--------+ + + + + | Date | Type | Department | Care Team | Description | +--------+ + + + + | 02/19/ | Hospital | [facility] | | | | 2002 - | Encounter | MED CTR CANCER | | | | | | CENTER [address] | | | | 06/11/ | | [place] | | | | 2002 | | [address] | | | | | | [phone] | | | +--------+ + + + [...]
--- OUTSIDE RECORDS SUMMARY | ~2019-07-27 | XMS | Encounter Summary ---
Demographics + + + | Address | [address] | | | [place] [address] | + + + | Home Phone | | + + + | Preferred Language | Unknown | + + + | Marital Status | | + + + | Anabaptism Affiliation | 1001 | + + + | Race | Unknown | + + + | Ethnic Group | Unknown | + + + Author + + + | Author | [facility] | | | and [place] | + + + | Organization | [facility] | | [...] [address] | | | | | [address] | | + + + + + | Mechelle Vidal | ECON | [place] | | | | | [address] | | + + + + + Care Team Providers + +------+ + | Care Graduate Student Instructor Name | Role | Phone | + +------+ + PCP | Unavailable | + +------+ + Encounter Details +--------+ + + + + | Date | Type | Department | Care Team | Description | +--------+ + + + + | 01/26/ | Hospital | [facility] | | | | 2009 - | Encounter | MED CTR CANCER | | | | | | CENTER [address] | | | | 02/16/ | | [place] | | | | 2009 | | [address] | | | | | | [phone] | | | +--------+ + + + [...]
--- OUTSIDE RECORDS SUMMARY | ~2019-07-27 | XMS | Encounter Summary ---
Demographics + + + | Address | [address] | | | [place] [address] | + + + | Home Phone | | + + + | Preferred Language | Unknown | + + + | Marital Status | | + + + | Congregation Affiliation | 1001 | + + + | Race | Unknown | + + + | Ethnic Group | Unknown | + + + Author + + + | Author | [facility] | | | and Jorge[place] | + + + | Organization | [facility] | | | [...] [address] | | | | | [address] | | + + + + + | Mechelle Vidal | ECON | [place] | | | | | [address] | | + + + + + Care Team Providers + +------+ + | Care Catalyst Operator Name | Role | Phone | + +------+ + PCP | Unavailable | + +------+ + Encounter Details +--------+ + + + + | Date | Type | Department | Care Team | Description | +--------+ + + + + | 10/08/ | Hospital | [facility] | | | | 2007 - | Encounter | MED CTR CANCER | | | | | | CENTER [address] | | | | / | | [place] | | | | 2007 | | [address] | | | | | | [phone] | | | +--------+ + + + [...]
--- OUTSIDE RECORDS SUMMARY | ~2019-07-27 | XMS | Encounter Summary ---
Demographics + + + | Address | [address] | | | [place] [address] | + + + | Home Phone | | + + + | Preferred Language | Unknown | + + + | Marital Status | | + + + | Protestant Affiliation | 1001 | + + + | Race | Unknown | + + + | Ethnic Group | Unknown | + + + Author + + + | Author | [facility] | | | and [place] | + + + | Organization | [facility] | | [...] [place] | | | | | [address] | | + + + + + | Mechelle Vidal | ECON | [place] | | | | | [address] | | + + + + + Care Team Providers + +------+ + | Care Engagement Liaison Name | Role | Phone | + +------+ + | Naeem Nair MD | PCP | | + +------+ + Encounter Details +--------+ + + + + | Date | Type | Department | Care Team | Description | +--------+ + + + + | 11/27/ | Hospital | [facility] | Catarino Timoteo N, | | | 2012 - | Encounter | [facility] | [place] [address] | | | | | [place] [address] | [place] | | | 12/17/ | | [place] | [address] | | | 2012 | | [id number] | [phone] | | | | | [phone] | | | +--------+ + + + [...]
--- OUTSIDE RECORDS SUMMARY | ~2019-07-27 | XMS | Encounter Summary ---
Demographics + + + | Address | [address] | | | [place] [address] | + + + | Home Phone | | + + + | Preferred Language | Unknown | + + + | Marital Status | | + + + | Hinduism Affiliation | 1001 | + + + | Race | Unknown | + + + | Ethnic Group | Unknown | + + + Author + + + | Author | [facility] | | | and Jorgeana | + + + | Organization | [facility] | | | [...] [address] | | | | | [address] | | + + + + + | Mechelle Vidal | ECON | [place] | | | | | [address] | | + + + + + Care Team Providers + +------+ + | Care Research And Insights Executive Name | Role | Phone | + +------+ + PCP | Unavailable | + +------+ + Encounter Details +--------+ + + + + | Date | Type | Department | Care Team | Description | +--------+ + + + + | 10/02/ | Hospital | [facility] | | | | 2003 - | Encounter | [facility] | | | | | | CENTER [address] | | | | 01/09/ | | [place] | | | | 2003 | | [address] | | | | | | [phone] | | | +--------+ + + + [...]
--- OUTSIDE RECORDS SUMMARY | ~2019-07-27 | XMS | Encounter Summary ---
Demographics + + + | Address | [address] | | | [place] [address] | + + + | Home Phone | | + + + | Preferred Language | Unknown | + + + | Marital Status | | + + + | Episcopalian Affiliation | 1001 | + + + | Race | Unknown | + + + | Ethnic Group | Unknown | + + + Author + + + | Author | [facility] | | | and Jorgeana | + + + | Organization | [facility] | | | [...] [address] | | | | | [address] | | + + + + + | Mechelle Vidal | ECON | [place] | | | | | [address] | | + + + + + Care Team Providers + +------+ + | Care Facilities Planner Name | Role | Phone | + +------+ + PCP | Unavailable | + +------+ + Encounter Details +--------+ + + + + | Date | Type | Department | Care Team | Description | +--------+ + + + + | 06/05/ | Hospital | [facility] | | | | 2006 - | Encounter | MED CTR CANCER | | | | | | CENTER [address] | | | | 06/19/ | | [place] | | | | 2006 | | [address] | | | | | | [phone] | | | +--------+ + + + [...]
--- OUTSIDE RECORDS SUMMARY | ~2019-07-27 | XMS | Encounter Summary ---
Demographics + + + | Address | [address] | | | [place] [address] | + + + | Home Phone | | + + + | Preferred Language | Unknown | + + + | Marital Status | | + + + | Pentecostal Affiliation | 1001 | + + + | Race | Unknown | + + + | Ethnic Group | Unknown | + + + Author + + + | Author | [facility] | | | and Jorgeana | + + + | Organization | [facility] | | [...] [address] | | | | | [address] | | + + + + + | Mechelle Vidal | ECON | [place] | | | | | [address] | | + + + + + Care Team Providers + +------+ + | Care Sales Porter Name | Role | Phone | + +------+ + PCP | Unavailable | + +------+ + Encounter Details +--------+ + + + + | Date | Type | Department | Care Team | Description | +--------+ + + + + | 10/11/ | Hospital | [facility] | Timoteo Toribio, | | | 2011 - | Encounter | MED CTR CANCER | [place] [address] | | | | | [place] [address] | [place] | | | / | | [place], [place] | [address] | | | 2011 | | [address] | [phone] | | | | | [phone] | | | +--------+ + + + [...] given today. [facility] for further followup. Approximately 20 minutes was spent with this patient, more than 50% of which was spent in d iscussion. DICTATED BY: Timoteo Toribio MD Radiation Oncology JOB #: [id number] EXT JOB #:[id number] EDITED: 10/16/2011 07:44 <Electronically Signed by Timoteo Toribio MD> 10/22/11 2259 documented in this encounter Plan of Treatment Not on filedocumented as of this encounter Visit Diagnoses Not on filedocumented in this encounter"
--- OUTSIDE RECORDS SUMMARY | ~2019-07-27 | XMS | Clinical Summary ---
Demographics + + + | Address | [address] | | | [place] [address] | + + + | Home Phone | | + + + | Preferred Language | Unknown | + + + | Marital Status | Unknown | + + + | Mandaen Affiliation | Unknown | + + + | Race | Unknown | + + + | Ethnic Group | Unknown | + + + Author + + + | Author | [facility] (Historical as of | | | 04-05-19) | + + + | Organization | [facility] (Historical as of | | | 04-05-19) [...] [place], [place] | | | | | [address] | | + + + + + Care Team Providers + +------+ + | Care Litigation Support Analyst Name | Role | Phone | + [...] +------+-------+ + | MEDICARE | MEDICA | [id number] | | | [address] | | | RE | | | | [place] [address] | | | IP-OP | | | | | + +--------+ +------+-------+ + | MEDICAID | MEDICA | [id number] | | | [address] | | | [place] | | | | [place] | | | [place] | | | | [address] | + +--------+ +------+-------+ + + +--------+ [...] | | | [place] | | | [address] | [address] | + +--------+ +--------+ + +"
--- OUTSIDE RECORDS SUMMARY | ~2019-07-27 | XMS | Encounter Summary ---
Demographics + + + | Address | [address] | | | [place] [address] | + + + | Home Phone | | + + + | Preferred Language | Unknown | + + + | Marital Status | | + + + | Jehovah'S Witness Affiliation | 1001 | + + + | Race | Unknown | + + + | Ethnic Group | Unknown | + + + Author + + + | Author | [facility] | | | and Jorgeana | + + + | Organization | [facility] | | [...] [address] | | | | | [address] | | + + + + + | Mechelle Vidal | ECON | [place] | | | | | [address] | | + + + + + Care Team Providers + +------+ + | Care Clinical Genetics Laboratory Chief Name | Role | Phone | + +------+ + PCP | Unavailable | + +------+ + Encounter Details +--------+ + + + + | Date | Type | Department | Care Team | Description | +--------+ + + + + | 10/22/ | Hospital | [facility] | | | | 2002 - | Encounter | MED CTR CANCER | | | | | | CENTER [address] | | | | 01/30/ | | [place] | | | | 2002 | | [address] | | | | | | [phone] | | | +--------+ + + + [...]
--- OUTSIDE RECORDS SUMMARY | ~2019-07-27 | XMS | Encounter Summary ---
Demographics + + + | Address | [address] | | | [place] [address] | + + + | Home Phone | | + + + | Preferred Language | Unknown | + + + | Marital Status | | + + + | Congregation Affiliation | 1001 | + + + | Race | Unknown | + + + | Ethnic Group | Unknown | + + + Author + + + | Author | [facility] | | | and Jorgeana | + + + | Organization | [facility] | | [...] [address] | | | | | [address] | | + + + + + | Mechelle Vidal | ECON | [place] | | | | | [address] | | + + + + + Care Team Providers + +------+ + | Care Clothes Ironer Name | Role | Phone | + [...] | | | | 2003 | | [address] | | | | | | [phone] | | | +--------+ + + + [...]
--- OUTSIDE RECORDS SUMMARY | ~2019-07-27 | XMS | Encounter Summary ---
Demographics + + + | Address | [address] | | | [place] [address] | + + + | Home Phone | | + + + | Preferred Language | Unknown | + + + | Marital Status | | + + + | Pentecostal Affiliation | 1001 | + + + | Race | Unknown | + + + | Ethnic Group | Unknown | + + + Author + + + | Author | [facility] | | | and Jorgeana | + + + | Organization | [facility] | | | and [...] [address] | | | | | [address] | | + + + + + | Mechelle Vidal | ECON | [place] | | | | | [address] | | + + + + + Care Team Providers + +------+ + | Care Lieutenant General Name | Role | Phone | + +------+ + PCP | Unavailable | + +------+ + Encounter Details +--------+ + + + + | Date | Type | Department | Care Team | Description | +--------+ + + + + | 08/10/ | Hospital | [facility] | | | | 2004 - | Encounter | MED CTR GENERIC OP | | | | | | CONV DEPT [address] | | | | 11/08/ | | [place], | | | | 2005 | | [place] [address] | | | | | | [phone] | | | +--------+ + + + [...]
--- OUTSIDE RECORDS SUMMARY | ~2019-07-27 | XMS | Encounter Summary ---
Demographics + + + | Address | [address] | | | [place] [address] | + + + | Home Phone | | + + + | Preferred Language | Unknown | + + + | Marital Status | | + + + | Congregational Affiliation | 1001 | + + + | Race | Unknown | + + + | Ethnic Group | Unknown | + + + Author + + + | Author | [facility] | | | and [place] | + + + | Organization | [facility] | | | [...] [address] | | | | | [address] | | + + + + + | Mechelle Vidal | ECON | [place] | | | | | [address] | | + + + + + Care Team Providers + +------+ + | Care Integrated Marketing Intern Name | Role | Phone | + [...] | | | | 2007 | | [address] | | | | | | [phone] | | | +--------+ + + + [...]
--- OUTSIDE RECORDS SUMMARY | ~2019-07-27 | XMS | Encounter Summary ---
Demographics + + + | Address | [address] | | | [place] [address] | + + + | Home Phone | | + + + | Preferred Language | Unknown | + + + | Marital Status | | + + + | Jewish Affiliation | 1001 | + + + | Race | Unknown | + + + | Ethnic Group | Unknown | + + + Author + + + | Author | [facility] | | | and Jorgeana | + + + | Organization | [facility] | | | [...] [address] | | | | | [address] | | + + + + + | Mechelle Vidal | ECON | [place] | | | | | [address] | | + + + + + Care Team Providers + +------+ + | Care Truck Packer Name | Role | Phone | + [...] | | | | 2001 | | [address] | | | | | | [phone] | | | +--------+ + + + [...]
--- OUTSIDE RECORDS SUMMARY | ~2019-07-27 | XMS | Encounter Summary ---
Demographics + + + | Address | [address] | | | [place] [address] | + + + | Home Phone | | + + + | Preferred Language | Unknown | + + + | Marital Status | | + + + | Baptist Affiliation | 1001 | + + + | Race | Unknown | + + + | Ethnic Group | Unknown | + + + Author + + + | Author | [facility] | | | and [place] | + + + | Organization | [facility] | | | and [...] [address] | | | | | [address] | | + + + + + | Mechelle Vidal | ECON | [place] | | | | | [address] | | + + + + + Care Team Providers + +------+ + | Care Fashion Photographer Name | Role | Phone | + [...] | | | | 2006 | | [address] | | | | | | [phone] | | | +--------+ + + + [...]
--- OUTSIDE RECORDS SUMMARY | ~2019-07-27 | XMS | Encounter Summary ---
Demographics + + + | Address | [address] | | | [place] [address] | + + + | Home Phone | | + + + | Preferred Language | Unknown | + + + | Marital Status | | + + + | Restorationist Affiliation | 1001 | + + + [...] [place] | | | | | [address] | | + + + + + | Mechelle Vidal | ECON | [place] | | | | | [address] | | + + + + + Care Team Providers + +------+ + | Care Meat Blender Name | Role | Phone | + +------+ + | Naeem Nair MD | PCP | | + +------+ + Encounter Details +--------+ + + + + | Date | Type | Department | Care Team | Description | +--------+ + + + + | 11/27/ | Hospital | [facility] | Catarino Timoteo N, | | | 2012 - | Encounter | MED CTR CANCER | [place] [address] | | | | | [place] [address] | [place] | | | 12/17/ | | [place] | [address] | | | 2012 | | [address] | [phone] | | | | | [phone] | | | +--------+ + + + [...]
--- OUTSIDE RECORDS SUMMARY | ~2019-07-27 | XMS | Encounter Summary ---
Demographics + + + | Address | [address] | | | [place] [address] | + + + | Home Phone | | + + + | Preferred Language | Unknown | + + + | Marital Status | | + + + | Presybeterian Affiliation | 1001 | + + + | Race | Unknown | + + + | Ethnic Group | Unknown | + + + Author + + + | Author | [facility] | | | and Jorgeana | + + + | Organization | [facility] | | | and [...] [address] | | | | | [address] | | + + + + + | Mechelle Vidal | ECON | [place] | | | | | [address] | | + + + + + Care Team Providers + +------+ + | Care Cartoon Animator Name | Role | Phone | + +------+ + PCP | Unavailable | + +------+ + Encounter Details +--------+ + + + + | Date | Type | Department | Care Team | Description | +--------+ + + + + | 08/10/ | Hospital | [facility] | | | | 2005 - | Encounter | MED CTR CANCER | | | | | | CENTER [address] | | | | 08/19/ | | [place] | | | | 2005 | | [address] | | | | | | [phone] | | | +--------+ + + + [...]
--- OUTSIDE RECORDS SUMMARY | ~2019-07-27 | XMS | Encounter Summary ---
Demographics + + + | Address | [address] | | | [place] [address] | + + + | Home Phone | | + + + | Preferred Language | Unknown | + + + | Marital Status | | + + + | Synagogue Affiliation | 1001 | + + + | Race | Unknown | + + + | Ethnic Group | Unknown | + + + Author + + + | Author | [facility] | | | and Jorgeana | + + + | Organization | [facility] | | [...] [address] | | | | | [address] | | + + + + + | Mechelle Vidal | ECON | [place] | | | | | [address] | | + + + + + Care Team Providers + +------+ + | Care Leather Scraper Name | Role | Phone | + +------+ + PCP | Unavailable | + +------+ + Encounter Details +--------+ + + + + | Date | Type | Department | Care Team | Description | +--------+ + + + + | 01/25/ | [facility] | | | | 2004 - | Encounter | MED CTR GENERIC OP | | | | | | CONV DEPT [address] | | | | 04/25/ | | [place], | | | | 2004 | | [place] [address] | | | | | | [phone] | | | +--------+ + + + [...]
--- OUTSIDE RECORDS SUMMARY | ~2019-07-27 | XMS | Encounter Summary ---
Demographics + + + | Address | [address] | | | [place] [address] | + + + | Home Phone | | + + + | Preferred Language | Unknown | + + + | Marital Status | | + + + | Moravian Affiliation | 1001 | + + + | Race | Unknown | + + + | Ethnic Group | Unknown | + + + Author + + + | Author | [facility] | | | and Jorgeana | + + + | Organization | [facility] | | [...] [address] | | | | | [address] | | + + + + + | Mechelle Vidal | ECON | [place] | | | | | [address] | | + + + + + Care Team Providers + +------+ + | Care Reclamation Supervisor Name | Role | Phone | [...] | | | | 2008 | | [address] | | | | | | [phone] | | | +--------+ + + + [...]
--- OUTSIDE RECORDS SUMMARY | ~2019-07-27 | XMS | Clinical Summary ---
Demographics + + + | Address | [address] | | | [place] [address] | + + + | Home Phone [...] Alber Mckeon | ECON | [address] | | | | | [place] [address] [place] | | | | | [address] | | + + + + + | Mechelle Vidal | ECON | [place] | | | | | [address] | | + + + + + Care Team Providers + +------+ + | Care Planting Material Unloader Name | Role | Phone | + +------+ + | Braxton Ruelas MD | PCP | | + +------+ + Allergies Not on File Medications Not on file Active Problems Not [...] recent travel history available. | + + Last Filed Vital Signs Not on file Plan of Treatment + + + + [...] | | | | | Pneumococcal 65+ (1 | 0 | | | | of 2 - PCV13) | | | | + + + + + | Vaccine: Influenza | | | | | (#1) | 9 | | | + + + + + Results Not on filefrom Last 3 Months Insurance + +--------+ +--------+ +---------+--------+ | Payer | Benefi | Subscriber | Effect | Phone | Address | Type | | | t Plan | ID | jelani | | | | | | / | | Dates | | | | | | Group | | | | | | + +--------+ +--------+ +---------+--------+ | MEDICARE | MEDICA | [id number] | 02/18/20 | [phone] | | Medica | | | RE | | 00-Pre | 5 | | re | | | PART A | | sent | | | | | | AND B | | | | | | + +--------+ +--------+ +---------+--------+ | MEDICARE | MEDICA | [id number] | 02/18/20 | [phone] | | Medica | | | RE | | 00-Pre | 5 | | re | | | PART A | | sent | | | | | | AND B | | | | | | + +--------+ +--------+ +---------+--------+ | [place] | MEDICA | [id number] | Effect | [phone] | | Medica | | | ID | | jelani | 2 | | id | | | [place] | | for | | | | | | | | all | | | | | | | | dates | | | | + +--------+ +--------+ +---------+--------+ + +--------+ +--------+ + + | Guarantor Name | Accoun | Relation to | Date | Phone | Billing Address | | | t Type | Patient | of | | | | | | | | | | + +--------+ +--------+ + + | Akhil Mckeon | Person | Self | [birth year] | [address] | | | al/Fam | | 1935 | [phone] | [place] | | | [place] | | | 1 (Home) | [address] | | | | | | [phone] | | | | | | | 1 (Work) | | + +--------+ +--------+ + + | Akhil Mckeon | Person | Self | [birth year] | | [address] | | | al/Fam | | 1935 | [phone] | [place] | | | [place] | | | 1 (Home) | [address] | + +--------+ +--------+ + + Advance Directives + + + + + | Type | Date Recorded | Patient | Explanation | | | | Reprographics Technician | | + + + + + | Power of | | | | | Potato Chip Sorter | | | | + + + + +"
--- OUTSIDE RECORDS SUMMARY | ~2019-07-27 | XMS | Encounter Summary ---
Demographics + + + | Address | [address] | | | [place] [address] | + + + | Home Phone | | + + + | Preferred Language | Unknown | + + + | Marital Status | | + + + | Orthodox Affiliation | 1001 | + + + | Race | Unknown | + + + | Ethnic Group | Unknown | + + + Author + + + | Author | [facility] | | | and Jorgeana | + + + | Organization | [facility] | | | [...] [place] | | | | | [address] | | + + + + + | Mechelle Vidal | ECON | [place] | | | | | [address] | | + + + + + Care Team Providers + +------+ + | Care Pollution Control Technician Name | Role | Phone | [...] | | [address] [address] | [place] [address] | | | | | [address] | [phone] | | | | | [phone] | | | +--------+ + + + [...] 2.49 cm AR Dec | | | Barbour: 1.99 m/s2 AR Dec Time: 2107.85 ms [...] m/s Lateral E/e': 10.58 | | | Centrifugal Screen Tender: REBEKAH Authenticated by: Hipolito Suarez | | | Date/Time: 08-03-2017 14:15:57 | | + + + + + | Procedure Note | + + | Theodore, Rad Conversion - 04/10/2019 8:37 PM PDT Patient Name: Eileen Mckeon | | of : 1935 Performing Physician: Hipolito | | [facility] INDICATIONS------ | | -----Murmur CONCLUSIONS 1. [...] cmLVIDd: 3.73 cmLVPWd: 1.02 cmLVOT Area: 3.12 bi4AQII Diam: | | 1.99 cm%FS: 38.08 %EF(Teich): [...] (A-L): 15.42 ml/m2LAAs | | A2C: 12.67 sz1OIVKV A-L A2C: 30.25 mlLALs A2C: 4.50 cmLAAs A4C: 14.55 jm1RZPRO | | A-L A4C: 41.62 mlLALs A4C: 4.31 cmRAAs: 13.92 dw5TABZL A-L: 37.79 mlRAESV MOD: | | 35.28 mlRALs: 4.35 cmTAPSE: 2.49 cmAR Dec Barbour: 1.99 m/s2AR Dec Time: 2106. | | msAR maxP.62 mmHgAR PHT: 611.27 msAR Vmax: 4.20 m/Alva maxP.12 mmHgAV | | meanP.84 mmHgAV Vmax: 1.59 m/Alva Vmean: 1.14 m/Alva VTI: 34.41 cmAVA Vmax: | | 2.76 cm2AVA (VTI): 3.27 ji4IFCE Vmax: 0.00 cm2/m2AVAI (VTI): 0.00 cm2/m2LVOT | | maxP.93 mmHgLVOT meanP.33 mmHgLVSI Dopp: 47.98 ml/m2LVSV Dopp: 112.76 | | mlLVOT Vmax: 1.40 m/sLVOT Vmean: 1.11 m/sLVOT VTI: 36.07 cmMV A Jerry: 0.91 m/sMV | | DecT: 209.15 msMV E Jerry: 0.82 m/sMV E/A Ratio: 0.90MV PHT: 60.65 msMVA By PHT: | | 3.62 dy0Hyczut e': 0.06 m/sSeptal E/e': 12.63Lateral e': 0.07 m/sLateral E/e': | | 10.58 Centrifugal Screen Tender: REBEKAHAuthenticated by: Hipolito Wooten Date/Time: 08-03-2017 | [...] | |TAPSE: 2.49 cm | |AR Dec Barbour: 1.99 m/s2 | |AR Dec Time: 2107.85 [...] | |Lateral E/e': 10.58 | | | |Centrifugal Screen Tender: DBS | |Authenticated by: Hipolito Cullen | [...]
--- OUTSIDE RECORDS SUMMARY | ~2019-07-27 | XMS | Encounter Summary ---
Demographics + + + | Address | [address] | | | [place] [address] | + + + | Home Phone | | + + + | Preferred Language | Unknown | + + + | Marital Status | | + + + | Faith Affiliation | 1001 | + + + | Race | Unknown | + + + | Ethnic Group | Unknown | + + + Author + + + | Author | [facility] | | | and Jorgeana | + + + | Organization | [facility] | | | and [...] [place] | | | | | [address] | | + + + + + Care Team Providers + +------+ + | Care Clinical Applications Manager Name | Role | Phone | + +------+ + PCP | Unavailable | + +------+ + Encounter Details +--------+ + + + + | Date | Type | Department | Care Team | Description | +--------+ + + + + | 01/09/ | Hospital | [facility] | Timoteo Toribio, | | | 2011 - | Encounter | MED CTR CANCER | [place] [address] | | | | | [place] [address] | [place] | | | 01/17/ | | [place], [place] | [address] | | | 2011 | | [address] | [phone] | | | | | [phone] | | | +--------+ + + + [...] continue to have his labs drawn in [place]. He will continue to see his other physicia ns as needed. DICTATED BY: Brianna Rodriguez MD Radiation Oncology JOB #: [id number] EXT JOB #:[id number] cc: MD Alia Loza MD Spencer N. Ashton, MD <Electronically Signed by Brianna Rodriguez MD> 01/10/12 1242 documented in this encounter Plan of Treatment Not on filedocumented as of this encounter Visit Diagnoses Not on filedocumented in this encounter"
--- OUTSIDE RECORDS SUMMARY | ~2019-07-27 | XMS | Encounter Summary ---
Demographics + + + | Address | [address] | | | [place] [address] | + + + | Home Phone | | + + + | Preferred Language | Unknown | + + + | Marital Status | | + + + | Episcopalian Affiliation | 1001 | + + + | Race | Unknown | + + + | Ethnic Group | Unknown | + + + Author + + + | Author | [facility] | | | and [place] | + + + | Organization | [facility] | | [...] [address] | | | | | [address] | | + + + + + | Mechelle Vidal | ECON | [place] | | | | | [address] | | + + + + + Care Team Providers + +------+ + | Care Campaign Director Name | Role | Phone | + +------+ + PCP | Unavailable | + +------+ + Encounter Details +--------+ + + + + | Date | Type | Department | Care Team | Description | +--------+ + + + + | 08/10/ | Hospital | [facility] | | | | 2004 - | Encounter | MED CTR GENERIC OP | | | | | | CONV DEPT [address] | | | | 11/08/ | | [place], | | | | 2005 | | [place] [address] | | | | | | [phone] | | | +--------+ + + + [...]
--- OUTSIDE RECORDS SUMMARY | ~2019-07-27 | XMS | Encounter Summary ---
Demographics + + + | Address | [address] | | | [place] [address] | + + + | Home Phone [...] + | Author | [facility] | | | and Jorgeana | + + + | Organization | [facility] | | [...] [address] | | | | | [address] | | + + + + + | Mechelle Vidal | ECON | [place] | | | | | [address] | | + + + + + Care Team Providers + +------+ + | Care Geoduck Diver Name | Role | Phone | + +------+ + PCP | Unavailable | + +------+ + Encounter Details +--------+ + + + + | Date | Type | Department | Care Team | Description | +--------+ + + + + | 04/10/ | Hospital | [facility] | Timoteo Toribio, | | | 2011 - | Encounter | MED CTR CANCER | [place] [address] | | | | | [place] [address] | [place] | | | 04/19/ | | [place], [place] | [address] | | | 2011 | | [address] | [phone] | | | | | [phone] | | | +--------+ + + + [...] tend erness. 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 PHYSICAL EXAMINATION VITAL SIGNS: Weight [...] Bassam Cristina MD Radiation Oncology JOB #: [id number] EXT JOB #:[id number] cc: MD Alia Loza MD Spencer N. Ashton, MD <Electronically Signed by Bassam Cristina MD> 04/10/12 1458 documented in this encounter Plan of Treatment Not on filedocumented as of this encounter Visit Diagnoses Not on filedocumented in this encounter"
--- OUTSIDE RECORDS SUMMARY | ~2019-07-27 | XMS | Encounter Summary ---
Demographics + + + | Address | [address] | | | [place] [address] | + + + | Home Phone [...] [address] | | | | | [address] | | + + + + + | Mechelle Vidal | ECON | [place] | | | | | [address] | | + + + + + Care Team Providers + +------+ + | Care Furniture Manager Name | Role | Phone | [...] | | | | 2007 | | [address] | | | | | | [phone] | | | +--------+ + + + [...]
--- OUTSIDE RECORDS SUMMARY | ~2019-07-27 | XMS | Encounter Summary ---
Demographics + + + | Address | [address] | | | [place] [address] | + + + | Home Phone | | + + + | Preferred Language | Unknown | + + + | Marital Status | | + + + | Worship Affiliation | 1001 | + + + | Race | Unknown | + + + | Ethnic Group | Unknown | + + + Author + + + | Author | [facility] | | | and Jorgeana | + + + | Organization | [facility] | [...] [address] | | | | | [address] | | + + + + + | Mechelle Vidal | ECON | [place] | | | | | [address] | | + + + + + Care Team Providers + +------+ + | Care Cafeteria Supervisor Name | Role | Phone | [...] | | | | 2007 | | [address] | | | | | | [phone] | | | +--------+ + + + [...]
--- OUTSIDE RECORDS SUMMARY | ~2019-07-27 | XMS | Encounter Summary ---
Demographics + + + | Address | [address] | | | [place] [address] | + + + | Home Phone | | + + + | Preferred Language | Unknown | + + + | Marital Status | | + + + | Restorationism Affiliation | 1001 | + + + [...] [address] | | | | | [address] | | + + + + + | Mechelle Vidal | ECON | [place] | | | | | [address] | | + + + + + Care Team Providers + +------+ + | Care Stock Repairer Name | Role | Phone | [...] | | | | 2006 | | [address] | | | | | | [phone] | | | +--------+ + + + [...]
--- OUTSIDE RECORDS SUMMARY | ~2019-07-27 | XMS | Encounter Summary ---
Demographics + + + | Address | [address] | | | [place] [address] | + + + | Home Phone [...] [address] | | | | | [address] | | + + + + + | Mechelle Vidal | ECON | [place] | | | | | [address] | | + + + + + Care Team Providers + +------+ + | Care Java J2Ee Lead Name | Role | Phone | + +------+ + PCP | Unavailable | + +------+ + Encounter Details +--------+ + + + + | Date | Type | Department | Care Team | Description | +--------+ + + + + | 04/05/ | Hospital | [facility] | | | | 2003 - | Encounter | MED CTR CANCER | | | | | | CENTER [address] | | | | 07/07/ | | [place] | | | | 2003 | | [address] | | | | | | [phone] | | | +--------+ + + + [...]
--- OUTSIDE RECORDS SUMMARY | ~2019-07-27 | XMS | Encounter Summary ---
Demographics + + + | Address | [address] | | | [place] [address] | + + + | Home Phone | | + + + | Preferred Language | Unknown | + + + | Marital Status | | + + + | Bahai Affiliation | 1001 | + + + | Race | Unknown | + + + | Ethnic Group | Unknown | + + + Author + + + | Author | [facility] | | | and Jorgeana | + + + | Organization | [facility] | | | [...] [address] | | | | | [address] | | + + + + + | Mechelle Vidal | ECON | [place] | | | | | [address] | | + + + + + Care Team Providers + +------+ + | Care Corporate Tax Manager Name | Role | Phone | + +------+ + PCP | Unavailable | + +------+ + Encounter Details +--------+ + + + + | Date | Type | Department | Care Team | Description | +--------+ + + + + | 05/11/ | Hospital | [facility] | | | | 2004 - | Encounter | MED CTR GENERIC OP | | | | | | CONV DEPT [address] | | | | 08/09/ | | [place], | | | | 2004 | | [place] [address] | | | | | | [phone] | | | +--------+ + + + [...]
--- OUTSIDE RECORDS SUMMARY | ~2019-07-27 | XMS | Encounter Summary ---
Demographics + + + | Address | [address] | | | [place] [address] | + + + | Home Phone | | + + + | Preferred Language | Unknown | + + + | Marital Status | | + + + | Temple Affiliation | 1001 | + + + | Race | Unknown | + + + | Ethnic Group | Unknown | + + + Author + + + | Author | [facility] | | | and Jorgeana | + + + | Organization | [facility] | | [...] [address] | | | | | [address] | | + + + + + | Mechelle Vidal | ECON | [place] | | | | | [address] | | + + + + + Care Team Providers + +------+ + | Care Administrative Underwriter Name | Role | Phone | + [...] | | | | 2007 | | [address] | | | | | | [phone] | | | +--------+ + + + [...]
--- OUTSIDE RECORDS SUMMARY | ~2019-07-27 | XMS | Encounter Summary ---
Demographics + + + | Address | [address] | | | [place] [address] | + + + | Home Phone [...] [address] | | | | | [address] | | + + + + + | Mechelle Vidal | ECON | [place] | | | | | [address] | | + + + + + Care Team Providers + +------+ + | Care Paintings Conservator Name | Role | Phone | + +------+ + PCP | Unavailable | + +------+ + Encounter Details +--------+ + + + + | Date | Type | Department | Care Team | Description | +--------+ + + + + | 11/07/ | Hospital | [facility] | | | | 2001 | Encounter | MED CTR XRAY [address] | | | | | | [place] | | | | | | [place] [address] | | | | | | [phone] | | | +--------+ + + + [...]
--- OUTSIDE RECORDS SUMMARY | ~2019-07-27 | XMS | Encounter Summary ---
Demographics + + + | Address | [address] | | | [place] [address] | + + + | Home Phone | | + + + | Preferred Language | Unknown | + + + | Marital Status | | + + + | Gnosticist Affiliation | 1001 | + + + | Race | Unknown | + + + | Ethnic Group | Unknown | + + + Author + + + | Author | [facility] | | | and Jorgeana | + + + | Organization | [facility] | | | [...] [address] | | | | | [address] | | + + + + + | Mechelle Vidal | ECON | [place] | | | | | [address] | | + + + + + Care Team Providers + +------+ + | Care Grounds Caretaker Name | Role | Phone | + [...] | | | | 2005 | | [address] | | | | | | [phone] | | | +--------+ + + + [...]
--- OUTSIDE RECORDS SUMMARY | ~2019-07-27 | XMS | Encounter Summary ---
Demographics + + + | Address | [address] | | | [place] [address] | + + + | Home Phone | | + + + | Preferred Language | Unknown | + + + | Marital Status | | + + + | Mandaen Affiliation | 1001 | + + + | Race | Unknown | + + + | Ethnic Group | Unknown | + + + Author + + + | Author | [facility] | | | and Jorgeana | + + + | Organization | [facility] | | | [...] [address] | | | | | [address] | | + + + + + | Mechelle Vidal | ECON | [place] | | | | | [address] | | + + + + + Care Team Providers + +------+ + | Care Band Teacher Name | Role | Phone | [...] | | | | 2009 | | [address] | | | | | | [phone] | | | +--------+ + + + [...]
--- OUTSIDE RECORDS SUMMARY | ~2019-07-27 | XMS | Encounter Summary ---
Demographics + + + | Address | [address] | | | [place] [address] | + + + | Home Phone | | + + + | Preferred Language | Unknown | + + + | Marital Status | | + + + | Restoration Affiliation | 1001 | + + + | Race | Unknown | + + + | Ethnic Group | Unknown | + + + Author + + + | Author | [facility] | | | and Jorgeana | + + + | Organization | [facility] | | | [...] [address] | | | | | [address] | | + + + + + | Mechelle Vidal | ECON | [place] | | | | | [address] | | + + + + + Care Team Providers + +------+ + | Care Line Fisher Name | Role | Phone | + [...] | | | | 2003 | | [address] | | | | | | [phone] | | | +--------+ + + + [...]
--- OUTSIDE RECORDS SUMMARY | ~2019-07-27 | XMS | Clinical Summary ---
Demographics + + + | Address | [address] | | | [place] [address] | + + + | Home Phone | | + + + | Preferred Language | Unknown | + + + | Marital Status | | + + + | Orthodox Affiliation | 1001 | + + + | Race | Unknown | + + + | Ethnic Group | Unknown | + + + Author + + + | Author | [facility] | | | and Jorgeana | + + + | Organization | [facility] | | | [...] [address] | | | | | [address] | | + + + + + | Mechelle Vidal | ECON | [place] | | | | | [address] | | + + + + + Care Team Providers + +------+ + | Care Remedial Project Manager Name | Role | Phone [...] +--------+ +---------+--------+ | MEDICARE | MEDICA | [id number] | 02/18/20 | [phone] | | Medica | | | RE | | 00-Pre | 5 | | re | | | PART A | | sent | | | | | | AND B | | | | | | + +--------+ +--------+ +---------+--------+ | MEDICARE | MEDICA | [id number] | 02/18/20 | [phone] | | Medica | | | RE | | 00-Pre | 5 | | re | | | PART A | | sent | | | | | | AND B | | | | | | + +--------+ +--------+ +---------+--------+ | MEDICAID [place] | MEDICA | [id number] | Effect | [phone] | | Medica [...] | | 1935 | [phone] | [place] | | | [place] | | | 1 (Home) | [address] | | | | | | [phone] | | | | | | | 1 (Work) | | + +--------+ +--------+ + + | Akhil Mckeon | Person | Self | [birth year] | [address] | | | al/Fam | | 1935 | [phone] | [place] | | | [place] | | | [address] (Home) | [address] | + +--------+ +--------+ + + Advance Directives + + + + + | Type | Date Recorded | Patient | Explanation | | | | Auditing Control Clerk | | + + + + + | Power of | | | | | Mock Up Builder | | | | + + + + +"
--- OUTSIDE RECORDS SUMMARY | ~2019-07-27 | XMS | Encounter Summary ---
Demographics + + + | Address | [address] | | | [place] [address] | + + + | Home Phone [...] [address] | | | | | [address] | | + + + + + | Mechelle Vidal | ECON | [place] | | | | | [address] | | + + + + + Care Team Providers + +------+ + | Care Clerical Office Name | Role | Phone | + [...] | | | | 2008 | | [address] | | | | | | [phone] | | | +--------+ + + + [...]
--- OUTSIDE RECORDS SUMMARY | ~2019-07-27 | XMS | Encounter Summary ---
Demographics + + + | Address | [address] | | | [place] [address] | + + + | Home Phone [...] [address] | | | | | [address] | | + + + + + | Mechelle Vidal | ECON | [place] | | | | | [address] | | + + + + + Care Team Providers + +------+ + | Care Farmer Diversified Crops Name | Role | Phone | + +------+ + PCP | Unavailable | + +------+ + Encounter Details +--------+ + + + + | Date | Type | Department | Care Team | Description | +--------+ + + + + | 04/12/ | Hospital | [facility] | Timoteo Toribio, | | | 2010 - | Encounter | MED CTR CANCER | [place] [address] | | | | | [place] [address] | [place], [place] | | | 04/19/ | | [place], [place] | [address] | | | 2010 | | [address] | [phone] | | | | | [phone] | | | +--------+ + + + [...] ONCOLOGY FOLLOWUP NOTE DIAGNOSIS: Prostate adenocarcinoma, T3N0M0, [place]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 FOLLOWUP NOTE: Mr. Akhil Mckeon is [...] Timoteo Toribio MD Radiation Oncology JOB #: [id number] EXT JOB #:[id number] <Electronicall y Signed by Timoteo Toribio MD> 05/10/11 1600 documented in this encounter Plan of Treatment Not on filedocumented as of this encounter Visit Diagnoses Not on filedocumented in this encounter"
--- OUTSIDE RECORDS SUMMARY | ~2019-07-27 | XMS | Encounter Summary ---
Demographics + + + | Address | [address] | | | [place] [address] | + + + | Home Phone [...] [address] | | | | | [address] | | + + + + + | Mechelle Vidal | ECON | [place] | | | | | [address] | | + + + + + Care Team Providers + +------+ + | Care Disc Pad Plate Filler Name | Role | Phone | + +------+ + PCP | Unavailable | + +------+ + Encounter Details +--------+ + + + + | Date | Type | Department | Care Team | Description | +--------+ + + + + | 10/11/ | Hospital | [facility] | Timoteo Toribio, | | | 2011 - | Encounter | MED CTR CANCER | [place] [address] | | | | | [place] [address] | [place] | | | / | | [place], [place] | [address] | | | 2011 | | [address] | [phone] | | | | | [phone] | | | +--------+ + + + [...] given today. [facility] followup. Approximately 20 minutes was spent with this patient, more than 50% of which was spent in d iscussion. DICTATED BY: Timoteo Toribio MD Radiation Oncology JOB #: [id number] EXT JOB #:[id number] EDITED: 10/16/2011 07:44 <Electronically Signed by Timoteo Toribio MD> 10/22/11 2259 documented in this encounter Plan of Treatment Not on filedocumented as of this encounter Visit Diagnoses Not on filedocumented in this encounter"
--- OUTSIDE RECORDS SUMMARY | ~2019-07-27 | XMS | Encounter Summary ---
Demographics + + + | Address | [address] | | | [place] [address] | + + + | Home Phone [...] [place] | | | | | [address] | | + + + + + | Mechelle Vidal | ECON | [place] | | | | | [address] | | + + + + + Care Team Providers + +------+ + | Care Foreign Exchange Student Coordinator Name | Role | Phone | + +------+ + | Naeem Nair MD | PCP | | + +------+ + Encounter Details +--------+ + + + + | Date | Type | Department | Care Team | Description | +--------+ + + + + | 07/10/ | Hospital | [facility] | Catarino Timoteo N, | | | 2011 - | Encounter | MED CTR CANCER | [place] [address] | | | | | [place] [address] | [place] | | | 07/19/ | | [place] | [address] | | | 2011 | | [address] | [phone] | | | | | [phone] | | | +--------+ + + + [...] | [facility] | | | | [place] [facility] | | MEDICAL | | | [...] + | [facility] | [address] | [place] | [phone] | | [facility] | | [address] | | | - LABORATORY | | | | + + + + + | [place] | [address] | [place] | | | [facility] | | [address] | | | - LABORATORY | | | | + + + + + documented in this encounter Visit Diagnoses Not on filedocumented in this encounter"
--- OUTSIDE RECORDS SUMMARY | ~2019-07-27 | XMS | Encounter Summary ---
Demographics + + + | Address | [address] | | | [place] [address] | + + + | Home Phone | | + + + | Preferred Language | Unknown | + + + | Marital Status | | + + + | Lutheran Affiliation | 1001 | + + + | Race | Unknown | + + + | Ethnic Group | Unknown | + + + Author + + + | Author | [facility] | | | and Jorgeana | + + + | Organization | [facility] | | [...] [address] | | | | | [address] | | + + + + + | Mechelle Vidal | ECON | [place] | | | | | [address] | | + + + + + Care Team Providers + +------+ + | Care Supervisor Abattoir Name | Role | Phone | + [...] | | | | 2006 | | [address] | | | | | | [phone] | | | +--------+ + + + [...]
--- OUTSIDE RECORDS SUMMARY | ~2019-07-27 | XMS | Encounter Summary ---
Demographics + + + | Address | [address] | | | [place] [address] | + + + | Home Phone [...] [address] | | | | | [address] | | + + + + + | Mechelle Vidal | ECON | [place] | | | | | [address] | | + + + + + Care Team Providers + +------+ + | Care Tow Picker Name | Role | Phone | + +------+ + PCP | Unavailable | + +------+ + Encounter Details +--------+ + + + + | Date | Type | Department | Care Team | Description | +--------+ + + + + | 01/09/ | Hospital | [facility] | Timoteo Toribio, | | | 2011 - | Encounter | MED CTR CANCER | [place] [address] | | | | | [place] [address] | [place] | | | 01/17/ | | [place], [place] | [address] | | | 2011 | | [address] | [phone] | | | | | [phone] | | | +--------+ + + + [...] continue to have his labs drawn in [place]. He will continue to see his other physicia ns as needed. DICTATED BY: Brianna Rodriguez MD Radiation Oncology JOB #: [id number] EXT JOB #:[id number] cc: MD Alia Loza MD Spencer N. Ashton, MD <Electronically Signed by Brianna Rodriguez MD> 01/10/12 1242 documented in this encounter Plan of Treatment Not on filedocumented as of this encounter Visit Diagnoses Not on filedocumented in this encounter"
--- OUTSIDE RECORDS SUMMARY | ~2019-07-27 | XMS | Encounter Summary ---
Demographics + + + | Address | [address] | | | [place] [address] | + + + | Home Phone [...] [address] | | | | | [address] | | + + + + + | Mechelle Vidal | ECON | [place] | | | | | [address] | | + + + + + Care Team Providers + +------+ + | Care Rn Lvn Name | Role | Phone | + [...] | | | | 2001 | | [address] | | | | | | [phone] | | | +--------+ + + + [...]
--- OUTSIDE RECORDS SUMMARY | ~2019-07-27 | XMS | Encounter Summary ---
Demographics + + + | Address | [address] | | | [place] [address] | + + + | Home Phone [...] + + | Author | [facility] | | | and Jorgeana | + + + | Organization | [facility] | | | [...] [address] | | | | | [address] | | + + + + + | Mechelle Vidal | ECON | [place] | | | | | [address] | | + + + + + Care Team Providers + +------+ + | Care Sewage Plant Attendant Name | Role | Phone | [...] | | | | 2010 | | [address] | | | | | | [phone] | | | +--------+ + + + [...]
--- OUTSIDE RECORDS SUMMARY | ~2019-07-27 | XMS | Encounter Summary ---
Demographics + + + | Address | [address] | | | [place] [address] | + + + | Home Phone | | + + + | Preferred Language | Unknown | + + + | Marital Status | | + + + | Druze Affiliation | 1001 | + + + | Race | Unknown | + + + | Ethnic Group | Unknown | + + + Author + + + | Author | [facility] | | | and Jorgeana | + + + | Organization | [facility] | | | and [...] [address] | | | | | [address] | | + + + + + | Mechelle Vidal | ECON | [place] | | | | | [address] | | + + + + + Care Team Providers + +------+ + | Care Ethylene Plant Operator Name | Role | Phone | [...] | | | | 2007 | | [address] | | | | | | [phone] | | | +--------+ + + + [...]
--- OUTSIDE RECORDS SUMMARY | ~2019-07-27 | XMS | Encounter Summary ---
Demographics + + + | Address | [address] | | | [place] [address] | + + + | Home Phone [...] [address] | | | | | [address] | | + + + + + | Mechelle Vidal | ECON | [place] | | | | | [address] | | + + + + + Care Team Providers + +------+ + | Care Multicultural Internship Name | Role | Phone | + [...] | | | | 2006 | | [address] | | | | | | [phone] | | | +--------+ + + + [...]
--- OUTSIDE RECORDS SUMMARY | ~2019-07-27 | XMS | Encounter Summary ---
Demographics + + + | Address | [address] | | | [place] [address] | + + + | Home Phone [...] [address] | | | | | [address] | | + + + + + | Mechelle Vidal | ECON | [place] | | | | | [address] | | + + + + + Care Team Providers + +------+ + | Care Light Bulb Tester Name | Role | Phone | + +------+ + PCP | Unavailable | + +------+ + Encounter Details +--------+ + + + + | Date | Type | Department | Care Team | Description | +--------+ + + + + | 08/10/ | Hospital | [facility] | | | | 2005 - | Encounter | MED CTR CANCER | | | | | | CENTER [address] | | | | 08/19/ | | [place] | | | | 2005 | | [address] | | | | | | [phone] | | | +--------+ + + + [...]
--- OUTSIDE RECORDS SUMMARY | ~2019-07-27 | XMS | Encounter Summary ---
Demographics + + + | Address | [address] | | | [place] [address] | + + + | Home Phone [...] [address] | | | | | [address] | | + + + + + | Mechelle Vidal | ECON | [place] | | | | | [address] | | + + + + + Care Team Providers + +------+ + | Care Industrial Equipment Mechanic Name | Role | Phone | + +------+ + PCP | Unavailable | + +------+ + Encounter Details +--------+ + + + + | Date | Type | Department | Care Team | Description | +--------+ + + + + | 10/21/ | Hospital | [facility] | | | | 2001 | Encounter | MED CTR XRAY [address] | | | | | | [place] | | | | | | [place] [address] | | | | | | [phone] | | | +--------+ + + + [...]
--- OUTSIDE RECORDS SUMMARY | ~2019-07-27 | XMS | Encounter Summary ---
Demographics + + + | Address | [address] | | | [place] [address] | + + + | Home Phone | | + + + | Preferred Language | Unknown | + + + | Marital Status | | + + + | Anabaptist Affiliation | 1001 | + + + [...] [address] | | | | | [address] | | + + + + + | Mechelle Vidal | ECON | [place] | | | | | [address] | | + + + + + Care Team Providers + +------+ + | Care Import/Export Analyst Name | Role | Phone | [...] | | | | 2009 | | [address] | | | | | | [phone] | | | +--------+ + + + [...]
--- OUTSIDE RECORDS SUMMARY | ~2019-07-27 | XMS | Encounter Summary ---
Demographics + + + | Address | [address] | | | [place] [address] | + + + | Home Phone [...] [address] | | | | | [address] | | + + + + + | Mechelle Vidal | ECON | [place] | | | | | [address] | | + + + + + Care Team Providers + +------+ + | Care Heart Coordinator Name | Role | Phone | [...] | | | | 2001 | | [address] | | | | | | [phone] | | | +--------+ + + + [...]
--- OUTSIDE RECORDS SUMMARY | ~2019-07-27 | XMS | Encounter Summary ---
Demographics + + + | Address | [address] | | | [place] [address] | + + + | Home Phone [...] [address] | | | | | [address] | | + + + + + | Mechelle Vidal | ECON | [place] | | | | | [address] | | + + + + + Care Team Providers + +------+ + | Care Contracts Advisor Name | Role | Phone | + [...] | | | | 2010 | | [address] | | | | | | [phone] | | | +--------+ + + + [...]
--- OUTSIDE RECORDS SUMMARY | ~2019-07-27 | XMS | Encounter Summary ---
Demographics + + + | Address | [address] | | | [place] [address] | + + + | Home Phone | | + + + | Preferred Language | Unknown | + + + | Marital Status | | + + + | Congregation Affiliation | 1001 | + + + | Race | Unknown | + + + | Ethnic Group | Unknown | + + + Author + + + | Author | [facility] | | | and Jorgeana | + + + | Organization | [facility] | | [...] [address] | | | | | [address] | | + + + + + | Mechelle Vidal | ECON | [place] | | | | | [address] | | + + + + + Care Team Providers + +------+ + | Care Motor Patrol Operator Name | Role | Phone | [...] | | | | 2009 | | [address] | | | | | | [phone] | | | +--------+ + + + [...]
--- OUTSIDE RECORDS SUMMARY | ~2019-07-27 | XMS | Encounter Summary ---
Demographics + + + | Address | [address] | | | [place] [address] | + + + | Home Phone [...] [address] | | | | | [address] | | + + + + + | Mechelle Vidal | ECON | [place] | | | | | [address] | | + + + + + Care Team Providers + +------+ + | Care Coal Passer Name | Role | Phone | + +------+ + PCP | Unavailable | + +------+ + Encounter Details +--------+ + + + + | Date | Type | Department | Care Team | Description | +--------+ + + + + | 01/25/ | Hospital | [facility] | | | | 2004 - | Encounter | MED CTR GENERIC OP | | | | | | CONV DEPT [address] | | | | 04/25/ | | [place], | | | | 2004 | | [place] [address] | | | | | | [phone] | | | +--------+ + + + [...]
--- OUTSIDE RECORDS SUMMARY | ~2019-07-27 | XMS | Encounter Summary ---
Demographics + + + | Address | [address] | | | [place] [address] | + + + | Home Phone [...] [address] | | | | | [address] | | + + + + + | Mechelle Vidal | ECON | [place] | | | | | [address] | | + + + + + Care Team Providers + +------+ + | Care Motor And Generator Assembler Name | Role | Phone | [...] | | | | 2009 | | [address] | | | | | | [phone] | | | +--------+ + + + [...]
--- OUTSIDE RECORDS SUMMARY | ~2019-07-27 | XMS | Encounter Summary ---
Demographics + + + | Address | [address] | | | [place] [address] | + + + | Home [...] [address] | | | | | [address] | | + + + + + | Mechelle Vidal | ECON | [place] | | | | | [address] | | + + + + + Care Team Providers + +------+ + | Care Precinct I Police Sergeant Name | Role | Phone | + [...] | | | | 2008 | | [address] | | | | | | [phone] | | | +--------+ + + + [...]
--- OUTSIDE RECORDS SUMMARY | ~2019-07-27 | XMS | Encounter Summary ---
Demographics + + + | Address | [address] | | | [place] [address] | + + + | Home Phone [...] [address] | | | | | [address] | | + + + + + | Mechelle Vidal | ECON | [place] | | | | | [address] | | + + + + + Care Team Providers + +------+ + | Care Director Of Engineering Name | Role | Phone | + [...] | | | | 2001 | | [address] | | | | | | [phone] | | | +--------+ + + + [...]
--- OUTSIDE RECORDS SUMMARY | ~2019-07-27 | XMS | Encounter Summary ---
Demographics + + + | Address | [address] | | | [place] [address] | + + + | Home Phone [...] [address] | | | | | [address] | | + + + + + | Mechelle Vidal | ECON | [place] | | | | | [address] | | + + + + + Care Team Providers + +------+ + | Care Crusher Loader Equipment Operator Name | Role | Phone | + +------+ + PCP | Unavailable | + +------+ + Encounter Details +--------+ + + + + | Date | Type | Department | Care Team | Description | +--------+ + + + + | 11/15/ | Hospital | [facility] | | | | 2005 - | Encounter | MED CTR GENERIC OP | | | | | | CONV DEPT [address] | | | | 11/17/ | | [place], | | | | 2005 | | [place] [address] | | | | | | [phone] | | | +--------+ + + + [...]
--- OUTSIDE RECORDS SUMMARY | ~2019-07-27 | XMS | Encounter Summary ---
Demographics + + + | Address | [address] | | | [place] [address] | + + + | Home Phone | | + + + | Preferred Language | Unknown | + + + | Marital Status | | + + + | Baptism Affiliation | 1001 | + + + | Race | Unknown | + + + | Ethnic Group | Unknown | + + + Author + + + | Author | [facility] | | | and Jorgeana | + + + | Organization | [facility] | | [...] [address] | | | | | [address] | | + + + + + | Mechelle Vidal | ECON | [place] | | | | | [address] | | + + + + + Care Team Providers + +------+ + | Care Medical Staff Assistant Name | Role | Phone | [...] | | | | 2007 | | [address] | | | | | | [phone] | | | +--------+ + + + [...]
--- OUTSIDE RECORDS SUMMARY | ~2019-07-27 | XMS | Encounter Summary ---
Demographics + + + | Address | [address] | | | [place] [address] | + + + | Home Phone | | + + + | Preferred Language | Unknown | + + + | Marital Status | | + + + | Anglican Affiliation | 1001 | + + + | Race | Unknown | + + + | Ethnic Group | Unknown | + + + Author + + + | Author | [facility] | | | and Jorgeana | + + + | Organization | [facility] | | [...] [address] | | | | | [address] | | + + + + + | Mechelle Vidal | ECON | [place] | | | | | [address] | | + + + + + Care Team Providers + +------+ + | Care Cloud Operations Engineer Name | Role | Phone | [...] | | | | 2008 | | [address] | | | | | | [phone] | | | +--------+ + + + [...]
--- OUTSIDE RECORDS SUMMARY | ~2019-07-27 | XMS | Encounter Summary ---
Demographics + + + | Address | [address] | | | [place] [address] | + + + | Home Phone [...] [address] | | | | | [address] | | + + + + + | Mechelle Vidal | ECON | [place] | | | | | [address] | | + + + + + Care Team Providers + +------+ + | Care Engineering Mgr Name | Role | Phone | + +------+ + PCP | Unavailable | + +------+ + Encounter Details +--------+ + + + + | Date | Type | Department | Care Team | Description | +--------+ + + + + | 05/11/ | Hospital | [facility] | | | | 2004 - | Encounter | MED CTR GENERIC OP | | | | | | CONV DEPT [address] | | | | 08/09/ | | [place], | | | | 2004 | | [place] [address] | | | | | | [phone] | | | +--------+ + + + [...]
--- OUTSIDE RECORDS SUMMARY | ~2019-07-27 | XMS | Encounter Summary ---
Demographics + + + | Address | [address] | | | [place] [address] | + + + | Home Phone | | + + + | Preferred Language | Unknown | + + + | Marital Status | | + + + | Scientology Affiliation | 1001 | + + + | Race | Unknown | + + + | Ethnic Group | Unknown | + + + Author + + + | Author | [facility] | | | and Jorgeana | + + + | Organization | [facility] | | | [...] [address] | | | | | [address] | | + + + + + | Mechelle Vidal | ECON | [place] | | | | | [address] | | + + + + + Care Team Providers + +------+ + | Care Local Az Truck Driver Name | Role | Phone | [...] | | | | 2009 | | [address] | | | | | | [phone] | | | +--------+ + + + [...]
--- OUTSIDE RECORDS SUMMARY | ~2019-07-27 | XMS | Encounter Summary ---
Demographics + + + | Address | [address] | | | [place] [address] | + + + | Home Phone [...] [address] | | | | | [address] | | + + + + + | Mechelle Vidal | ECON | [place] | | | | | [address] | | + + + + + Care Team Providers + +------+ + | Care Cambering Machine Operator Name | Role | Phone [...] | | | | 2005 | | [address] | | | | | | [phone] | | | +--------+ + + + [...]
--- OUTSIDE RECORDS SUMMARY | ~2019-07-27 | XMS | Encounter Summary ---
Demographics + + + | Address | [address] | | | [place] [address] | + + + | Home Phone [...] [address] | | | | | [address] | | + + + + + | Mechelle Vidal | ECON | [place] | | | | | [address] | | + + + + + Care Team Providers + +------+ + | Care Media Job Titles Name | Role | Phone | + [...] | | | | 2006 | | [address] | | | | | | [phone] | | | +--------+ + + + [...]
--- OUTSIDE RECORDS SUMMARY | ~2019-07-27 | XMS | Encounter Summary ---
Demographics + + + | Address | [address] | | | [place] [address] | + + + | Home Phone [...] [address] | | | | | [address] | | + + + + + | Mechelle Vidal | ECON | [place] | | | | | [address] | | + + + + + Care Team Providers + +------+ + | Care Transportation Attendant Name | Role | Phone | [...] | | | | 2008 | | [address] | | | | | | [phone] | | | +--------+ + + + [...]
--- OUTSIDE RECORDS SUMMARY | ~2019-07-27 | XMS | Encounter Summary ---
Demographics + + + | Address | [address] | | | [place] [address] | + + + | Home Phone [...] [address] | | | | | [address] | | + + + + + | Mechelle Vidal | ECON | [place] | | | | | [address] | | + + + + + Care Team Providers + +------+ + | Care Forge Shop Machine Repairer Name | Role | Phone | + +------+ + PCP | Unavailable | + +------+ + Encounter Details +--------+ + + + + | Date | Type | Department | Care Team | Description | +--------+ + + + + | 10/20/ | Hospital | [facility] | | | | 2004 - | Encounter | MED CTR GENERIC OP | | | | | | CONV DEPT [address] | | | | 01/18/ | | [place], | | | | 2004 | | [place] [address] | | | | | | [phone] | | | +--------+ + + + [...]
--- OUTSIDE RECORDS SUMMARY | ~2019-07-27 | XMS | Encounter Summary ---
Demographics + + + | Address | [address] | | | [place] [address] | + + + | Home Phone [...] [address] | | | | | [address] | | + + + + + | Mechelle Vidal | ECON | [place] | | | | | [address] | | + + + + + Care Team Providers + +------+ + | Care Stripper And Taper Name | Role | Phone | + [...] | | | | 2008 | | [address] | | | | | | [phone] | | | +--------+ + + + [...]
--- OUTSIDE RECORDS SUMMARY | ~2019-07-27 | XMS | Encounter Summary ---
Demographics + + + | Address | [address] | | | [place] [address] | + + + | Home Phone [...] [place] | | | | | [address] | | + + + + + | Mechelle Vidal | ECON | [place] | | | | | [address] | | + + + + + Care Team Providers + +------+ + | Care Supervisor Porcelain Department Name | Role | Phone | + +------+ + | Naeem Nair MD | PCP | | + +------+ + Encounter Details +--------+ + + + + | Date | Type | Department | Care Team | Description | +--------+ + + + + | 07/10/ | Hospital | [facility] | Catarino Timoteo N, | | | 2011 - | Encounter | MED CTR CANCER | [place] [address] | | | | | [place] [address] | [place] | | | 07/19/ | | [place] | [address] | | | 2011 | | [address] | [phone] | | | | | [phone] | | | +--------+ + + + [...] | [facility] | | | | [facility] | | MEDICAL | | | [...] + | [facility] | [address] | [place] | [phone] | | [facility] | | [address] | | | - LABORATORY | | | | + + + + + | [place] | [address] | [place] | | | [facility] | | [address] | | | - LABORATORY | | | | + + + + + documented in this encounter Visit Diagnoses Not on filedocumented in this encounter"
--- OUTSIDE RECORDS SUMMARY | ~2019-07-27 | XMS | Encounter Summary ---
Demographics + + + | Address | [address] | | | [place] [address] | + + + | Home Phone [...] [place] | | | | | [address] | | + + + + + | Mechelle Vidal | ECON | [place] | | | | | [address] | | + + + + + Care Team Providers + +------+ + | Care Workers Compensation Claims Assistant Name | Role | Phone | + +------+ + | Naeem Nair MD | PCP | | + +------+ + Encounter Details +--------+ + + + + | Date | Type | Department | Care Team | Description | +--------+ + + + + | 10/16/ | Hospital | [facility] | CatarinoTimoteo, | | | 2012 - | Encounter | MED CTR CANCER | [address] | | | | | [place] [address] | [place] | | | 10/17/ | | [place] | [address] | | | 2012 | | [address] | [phone] | | | | | [phone] | | | +--------+ + + + [...]
--- OUTSIDE RECORDS SUMMARY | ~2019-07-27 | XMS | Encounter Summary ---
Demographics + + + | Address | [address] | | | [place] [address] | + + + | Home Phone [...] [address] | | | | | [address] | | + + + + + | Mechelle Vidal | ECON | [place] | | | | | [address] | | + + + + + Care Team Providers + +------+ + | Care Spiral Tube Winder Helper Name | Role | Phone | + +------+ + PCP | Unavailable | + +------+ + Encounter Details +--------+ + + + + | Date | Type | Department | Care Team | Description | +--------+ + + + + | 06/28/ | Hospital | [facility] | Timoteo Toribio, | | | 2010 - | Encounter | MED CTR CANCER | [place] [address] | | | | | [place] [address] | [place] | | | 07/19/ | | [place] | [address] | | | 2010 | | [address] | [phone] | | | | | [phone] | | | +--------+ + + + [...] Timoteo Toribio MD Radiation Oncology JOB #: [id number] EXT JOB #:[id number] cc: MD Alia Loza MD <Electronically Signed by Timoteo Toribio MD> 07/15/11 1100 documented in this encounter Plan of Treatment Not on filedocumented as of this encounter Visit Diagnoses Not on filedocumented in this encounter"
--- OUTSIDE RECORDS SUMMARY | ~2019-07-27 | XMS | Encounter Summary ---
Demographics + + + | Address | [address] | | | [place] [address] | + + + | Home Phone | | + + + | Preferred Language | Unknown | + + + | Marital Status | | + + + | Yazidism Affiliation | 1001 | + + + | Race | Unknown | + + + | Ethnic Group | Unknown | + + + Author + + + | Author | [facility] | | | and Jorgeana | + + + | Organization | [facility] | | | [...] [address] | | | | | [address] | | + + + + + | Mechelle Vidal | ECON | [place] | | | | | [address] | | + + + + + Care Team Providers + +------+ + | Care Patient Access Name | Role | Phone | + +------+ + PCP | Unavailable | + +------+ + Encounter Details +--------+ + + + + | Date | Type | Department | Care Team | Description | +--------+ + + + + | 04/10/ | Hospital | [facility] | Timoteo Toribio, | | | 2011 - | Encounter | MED CTR CANCER | [place] [address] | | | | | [place] [address] | [place] | | | 04/19/ | | [place] | [address] | | | 2011 | | [address] | [phone] | | | | | [phone] | | | +--------+ + + + [...] tend erness. He continues to work a [employer] every day. PHYSICAL EXAMINATION VITAL SIGNS: Weight [...] Bassam Cristina MD Radiation Oncology JOB #: [id number] EXT JOB #:[id number] cc: MD Alia Loza MD Spencer N. Ashton, MD <Electronically Signed by Bassam Cristina MD> 04/10/12 1458 documented in this encounter Plan of Treatment Not on filedocumented as of this encounter Visit Diagnoses Not on filedocumented in this encounter"
--- OUTSIDE RECORDS SUMMARY | ~2019-07-27 | XMS | Encounter Summary ---
Demographics + + + | Address | [address] | | | [place] [address] | + + + | Home Phone [...] [address] | | | | | [address] | | + + + + + | Mechelle Vidal | ECON | [place] | | | | | [address] | | + + + + + Care Team Providers + +------+ + | Care Local Delivery Truck Driver Name | Role | Phone [...] | | | | 2007 | | [address] | | | | | | [phone] | | | +--------+ + + + [...]
--- OUTSIDE RECORDS SUMMARY | ~2019-07-27 | XMS | Encounter Summary ---
Demographics + + + | Address | [address] | | | [place] [address] | + + + | Home Phone [...] [address] | | | | | [address] | | + + + + + | Mechelle Vidal | ECON | [place] | | | | | [address] | | + + + + + Care Team Providers + +------+ + | Care House Furnishings Supervisor Name | Role | Phone | [...] | | | | 2002 | | [address] | | | | | | [phone] | | | +--------+ + + + [...]
--- OUTSIDE RECORDS SUMMARY | ~2019-07-27 | XMS | Encounter Summary ---
Demographics + + + | Address | [address] | | | [place] [address] | + + + | Home Phone [...] [place] | | | | | [address] | | + + + + + | Mechelle Vidal | ECON | [place] | | | | | [address] | | + + + + + Care Team Providers + +------+ + | Care Gas Appliance Repairer Name | Role | Phone | + +------+ + | Naeem Nair MD | PCP | | + +------+ + Encounter Details +--------+ + + + + | Date | Type | Department | Care Team | Description | +--------+ + + + + | 10/16/ | Hospital | [facility] | CatarinoTimoteo, | | | 2012 - | Encounter | MED CTR CANCER | [address] | | | | | [place] [address] | [place] | | | 10/17/ | | [place] | [address] | | | 2012 | | [address] | [phone] | | | | | [phone] | | | +--------+ + + + [...]
--- OUTSIDE RECORDS SUMMARY | ~2019-07-27 | XMS | Encounter Summary ---
Demographics + + + | Address | [address] | | | [place] [address] | + + + | Home Phone | | + + + | Preferred Language | Unknown | + + + | Marital Status | | + + + | Hindu Affiliation | 1001 | + + + | Race | Unknown | + + + | Ethnic Group | Unknown | + + + Author + + + | Author | [facility] | | | and Jorgeana | + + + | Organization | [facility] | | | [...] [address] | | | | | [address] | | + + + + + | Mechelle Vidal | ECON | [place] | | | | | [address] | | + + + + + Care Team Providers + +------+ + | Care Supervisor Inspection And Testing Name | Role | Phone | + +------+ + PCP | Unavailable | + +------+ + Encounter Details +--------+ + + + + | Date | Type | Department | Care Team | Description | +--------+ + + + + | 10/20/ | Hospital | [facility] | | | | 2004 - | Encounter | MED CTR GENERIC OP | | | | | | CONV DEPT [address] | | | | 01/18/ | | [place], | | | | 2004 | | [place] [address] | | | | | | [phone] | | | +--------+ + + + [...]
--- OUTSIDE RECORDS SUMMARY | ~2019-07-27 | XMS | Encounter Summary ---
Demographics + + + | Address | [address] | | | [place] [address] | + + + | Home Phone [...] [address] | | | | | [address] | | + + + + + | Mechelle Vidal | ECON | [place] | | | | | [address] | | + + + + + Care Team Providers + +------+ + | Care Regional Director Name | Role | Phone | [...] | | | | 2002 | | [address] | | | | | | [phone] | | | +--------+ + + + [...]
--- OUTSIDE RECORDS SUMMARY | ~2019-07-27 | XMS | Encounter Summary ---
Demographics + + + | Address | [address] | | | [place] [address] | + + + | Home Phone [...] [address] | | | | | [address] | | + + + + + | Mechelle Vidal | ECON | [place] | | | | | [address] | | + + + + + Care Team Providers + +------+ + | Care Diploma Pharmacy Technician Name | Role | Phone | + +------+ + PCP | Unavailable | + +------+ + Encounter Details +--------+ + + + + | Date | Type | Department | Care Team | Description | +--------+ + + + + | 04/12/ | Hospital | [facility] | Timoteo Toribio, | | | 2010 - | Encounter | MED CTR CANCER | [place] [address] [facility] | | | | | [place] [address] | [place], [place] | | | 04/19/ | | [place], [place] | [address] | | | 2010 | | [address] | [phone] | | | | | [phone] | | | +--------+ + + + [...] ONCOLOGY FOLLOWUP NOTE DIAGNOSIS: Prostate adenocarcinoma, T3N0M0, [place] 3+3=6. FOLLOWUP NOTE: Mr. Akhil Mckeon is [...] Timoteo Toribio MD Radiation Oncology JOB #: [id number] EXT JOB #:[id number] <Electronicall y Signed by Timoteo Toribio MD> 05/10/11 1600 documented in this encounter Plan of Treatment Not on filedocumented as of this encounter Visit Diagnoses Not on filedocumented in this encounter"
--- OUTSIDE RECORDS SUMMARY | ~2019-07-27 | XMS | Encounter Summary ---
Demographics + + + | Address | [address] | | | [place] [address] | + + + | Home Phone [...] [address] | | | | | [address] | | + + + + + | Mechelle Vidal | ECON | [place] | | | | | [address] | | + + + + + Care Team Providers + +------+ + | Care Open Shank Coverer Name | Role | Phone | + +------+ + PCP | Unavailable | + +------+ + Encounter Details +--------+ + + + + | Date | Type | Department | Care Team | Description | +--------+ + + + + | 10/21/ | Hospital | [facility] | | | | 2001 | Encounter | MED CTR XRAY [address] | | | | | | [place] | | | | | | [place] [address] | | | | | | [phone] | | | +--------+ + + + [...]
--- OUTSIDE RECORDS SUMMARY | 2019-07-27 18:16 | XMS ---
PreManage Notification: CHRIS SCHWARTZ Security Government Relations Analyst Events No recent Security Events currently on file CRITERIA MET - [facility] - 2 Visits in 30 Days CARE PROVIDERS There are no care providers on record at this time. [facility] has no Care Guidelines for this patient. [place] [facility]12 MO.) [facility] NOTE: Visits indicate total known visits. ED/C VISIT TRACKING (12 MO.) [facility] [place] [facility] COMPLAINT: - BLOOD IN URINE 07/25/2019 15:50 [facility] [place] TYPE: Emergency COMPLAINT: - DR VAZQUEZ REFER INPATIENT VISIT TRACKING (12 MO.) No inpatient visits to display in this time frame [email or web address]
== END 2019-07-27 18:20 | disposition left against medical advice (07) ==
LOC: ED 18:13
DX: Z53.21 Procedure and treatment not carried out due to patient leaving prior to being seen by health care provider (principal)

== ENCOUNTER 2019-07-28 09:14 | Emergency (ER) | payer MEDICARE, OTHER ==
[~2019-07-28] VITALS: Ht 170.2 cm; Wt 70.3 kg
--- OUTSIDE RECORDS SUMMARY | ~2019-07-28 | XMS | Encounter Summary ---
Demographics + + + | Address | [address] | | | [place] [address] | + + + | Home Phone | | + + + | Preferred Language | Unknown | + + + | Marital Status | | + + + | Alevism Affiliation | 1001 | + + + | Race | Unknown | + + + | Ethnic Group | Unknown | + + + Author + + + | Author | [facility] | | | and Jorgeana | + + + | Organization | [facility] | | | and [...] [address] | | | | | [address] | | + + + + + | Mechelle Vidal | ECON | [place] | | | | | [address] | | + + + + + Care Team Providers + +------+ + | Care Sheet Layer Name | Role | Phone | + +------+ + PCP | Unavailable | + +------+ + Encounter Details +--------+ + + + + | Date | Type | Department | Care Team | Description | +--------+ + + + + | 06/28/ | Hospital | [facility] | Timoteo Toribio, | | | 2010 - | Encounter | MED CTR CANCER | [place] [address] | | | | | [place] [address] | [place] | | | 07/19/ | | [place], [place] | [address] | | | 2010 | | [address] | [phone] | | | | | [phone] | | | +--------+ + + + [...] + + documented as of this encounter Progress Notes Timoteo Toribio MD - 06/28/2011 2:19 AM PSTDATE: 06/28/2011 RADIATION ONCOLOGY FOLLOWUP NOTE DIAGNOSIS: Prostate adenocarcinoma initially diagnosed as a T3 N0 M0, Armando 3 + 3 = 6. FOLLOWUP NOTE: Mr. Akhil Mckeon is a 76-year-old gentleman who was initially diagnosed with his prostate cancer back in 2001. The patient did receive 6840 cGy as part of his def initive therapy, completing those treatments in 2001. The patient did have a PSA failure ba ck in 2004 and was treated with Lupron with the last injection back in 05/2010. The patient had wanted to come off the hormone therapy at that time. The patient did very well over next year but did start noticing a rising PSA and did have a PSA level of 4 back in , which was up from 0.26 in September. Since we last saw him in March, the patient has no sharee a mild ache in his tailbone, which he states he sometimes notices when he sits, but it does not bother him too much. The patient otherwise states that he is feeling well. He fredy es any diarrhea, blood in his urine, or blood in his stools. He does get up 2 to 3 times pe r night to urinate. He does have an AUA score of 10 out of a possible 35, which has been s table. PHYSICAL EXAMINATION VITAL SIGNS: Blood pressure is 126/60, pulse 56, temperature 37 degrees Celsius , weight i s 73.6 kg which has been stable. GENERAL: The patient is awake, alert, and oriented, in no apparent distress. LUNGS: Clear to auscultation. HEART: Regular rate and rhythm. ABDOMEN: Soft, nontender, nondistended. RECTAL: Exam deferred as it was performed last time. LABS: Serum PSA on 06/13/2011 was 5.28, up from 4 on 04/04/2011. ASSESSMENT AND PLAN: Mr. Akhil Mckeon does have a history of a Armando 6 prostate canc er with PSA failure back in 2004. The patient has been off hormonal therapy for 1 year and has noted rising PSA with it now up to 5.28. The patient does have a new ache in the tailbo ne but otherwise clinically he is feeling well. We did discuss possible options at this wayne e including doing a bone scan to evaluate the area of the ache in the tailbone as well as restarting the hormonal treatments. The patient states that overall he is feeling well and wanted to just try restarting the hormones to see if the ache in his tailbone does not impr ove with those treatments and did not want to pursue a bone scan at this time. We did go ah ead and the patient initially was written for 22.5 mg of Lupron. However, the pharmacy did not have it, and therefore a 3-month injection of Trelstar was given. We would like the pat ient to return in 3 months for repeat PSA and repeat injection at that time. The patient w as agreeable to this plan. DICTATED BY: Timoteo Toribio MD Radiation Oncology JOB #: [id number] EXT JOB #:[id number] cc: MD Alia Loza MD <Electronically Signed by Timoteo Toribio MD> 07/15/11 1100 documented in this encounter Plan of Treatment Not on filedocumented as of this encounter Visit Diagnoses Not on filedocumented in this encounter"
--- OUTSIDE RECORDS SUMMARY | ~2019-07-28 | XMS | Encounter Summary ---
Demographics + + + | Address | [address] | | | [place] [address] | + + + | Home Phone | | + + + | Preferred Language | Unknown | + + + | Marital Status | | + + + | Pentecostalism Affiliation | 1001 | + + + | Race | Unknown | + + + | Ethnic Group | Unknown | + + + Author + + + | Author | [facility] | | | and Jorgeana | + + + | Organization | [facility] | | | and [...] [address] | | | | | [address] | | + + + + + | Mechelle Vidal | ECON | [place] | | | | | [address] | | + + + + + Care Team Providers + +------+ + | Care Steam Distribution Supervisor Name | Role | Phone | + +------+ + PCP | Unavailable | + +------+ + Encounter Details +--------+ + + + + | Date | Type | Department | Care Team | Description | +--------+ + + + + | 10/11/ | Hospital | [facility] | Timoteo Toribio, | | | 2011 - | Encounter | MED CTR CANCER | [place] [address] | | | | | [place] [address] | [place] | | | / | | [place], [place] | [address] | | | 2011 | | [address] | [phone] | | | | | [phone] | | | +--------+ + + + [...] given today. [facility] for further followup. Approximately 20 minutes was spent with this patient, more than 50% of which was spent in d iscussion. DICTATED BY: Timoteo Toribio MD Radiation Oncology JOB #: [id number] EXT JOB #:[id number] EDITED: 10/16/2011 07:44 <Electronically Signed by Timoteo Toribio MD> 10/22/11 2259 documented in this encounter Plan of Treatment Not on filedocumented as of this encounter Visit Diagnoses Not on filedocumented in this encounter"
--- OUTSIDE RECORDS SUMMARY | ~2019-07-28 | XMS | Encounter Summary ---
Demographics + + + | Address | [address] | | | [place] [address] | + + + | Home Phone | | + + + | Preferred Language | Unknown | + + + | Marital Status | | + + + | Jain Affiliation | 1001 | + + + | Race | Unknown | + + + | Ethnic Group | Unknown | + + + Author + + + | Author | [facility] | | | and [place] | + + + | Organization | [facility] | | [...] [address] | | | | | [address] | | + + + + + | Mechelle Vidal | ECON | [place] | | | | | [address] | | + + + + + Care Team Providers + +------+ + | Care Roving Marker Name | Role | Phone | + +------+ + PCP | Unavailable | + +------+ + Encounter Details +--------+ + + + + | Date | Type | Department | Care Team | Description | +--------+ + + + + | 01/06/ | Hospital | [facility] | | | | 2007 - | Encounter | MED CTR CANCER | | | | | | CENTER [address] | | | | 01/17/ | | [place] | | | | 2007 | | [address] | | | | | | [phone] | | | +--------+ + + + [...]
--- OUTSIDE RECORDS SUMMARY | ~2019-07-28 | XMS | Encounter Summary ---
Demographics + + + | Address | [address] | | | [place] [address] | + + + | Home Phone | | + + + | Preferred Language | Unknown | + + + | Marital Status | | + + + | Nondenominational Affiliation | 1001 | + + + | Race | Unknown | + + + | Ethnic Group | Unknown | + + + Author + + + | Author | [facility] | | | and [place]ana | + + + | Organization | [facility] | | | [...] [address] | | | | | [address] | | + + + + + | Mechelle Vidal | ECON | [place] | | | | | [address] | | + + + + + Care Team Providers + +------+ + | Care Nursing Informatics Specialist Name | Role | Phone | [...] | | | | CENTER [address] | | | | 06/11/ | | [place] | | | | 2002 | | [address] | | | | | | [phone] | | | +--------+ + + + [...]
--- OUTSIDE RECORDS SUMMARY | ~2019-07-28 | XMS | Encounter Summary ---
Demographics + + + | Address | [address] | | | [place] [address] | + + + | Home Phone | | + + + | Preferred Language | Unknown | + + + | Marital Status | | + + + | Baptism Affiliation | 1001 | + + + | Race | Unknown | + + + | Ethnic Group | Unknown | + + + Author + + + | Author | [facility] | | | and [place] | + + + | Organization | [facility] | | [...] [address] | | | | | [address] | | + + + + + | Mechelle Vidal | ECON | [place] | | | | | [address] | | + + + + + Care Team Providers + +------+ + | Care Acid Purifier Name | Role | Phone | + +------+ + PCP | Unavailable | + +------+ + Encounter Details +--------+ + + + + | Date | Type | Department | Care Team | Description | +--------+ + + + + | 11/14/ | Hospital | [facility] | | | | 2006 - | Encounter | MED CTR CANCER | | | | | | CENTER [address] | | | | 11/17/ | | [place] | | | | 2006 | | [address] | | | | | | [phone] | | | +--------+ + + + [...]
--- OUTSIDE RECORDS SUMMARY | ~2019-07-28 | XMS | Encounter Summary ---
Demographics + + + | Address | [address] | | | [place] [address] | + + + | Home Phone | | + + + | Preferred Language | Unknown | + + + | Marital Status | | + + + | Christian Affiliation | 1001 | + + + | Race | Unknown | + + + | Ethnic Group | Unknown | + + + Author + + + | Author | [facility] | | | and [place] | + + + | Organization | [facility] | | | [...] [address] | | | | | [address] | | + + + + + | Mechelle Vidal | ECON | [place] | | | | | [address] | | + + + + + Care Team Providers + +------+ + | Care Rn Wound Care Name | Role | Phone | + [...] | | | | 2009 | | [address] | | | | | | [phone] | | | +--------+ + + + [...]
--- OUTSIDE RECORDS SUMMARY | ~2019-07-28 | XMS | Encounter Summary ---
Demographics + + + | Address | [address] | | | [place] [address] | + + + | Home Phone | | + + + | Preferred Language | Unknown | + + + | Marital Status | | + + + | Hinduism Affiliation | 1001 | + + + | Race | Unknown | + + + | Ethnic Group | Unknown | + + + Author + + + | Author | [facility] | | | and Jorgeana | + + + | Organization | [facility] | | | [...] [address] | | | | | [address] | | + + + + + | Mechelle Vidal | ECON | [place] | | | | | [address] | | + + + + + Care Team Providers + +------+ + | Care Learn To Swim Instructor Name | Role | Phone | + +------+ + PCP | Unavailable | + +------+ + Encounter Details +--------+ + + + + | Date | Type | Department | Care Team | Description | +--------+ + + + + | 01/09/ | Hospital | [facility] | Timoteo Toribio, | | | 2011 - | Encounter | MED CTR CANCER | [place] [address] | | | | | [place] [address] | [place] | | | 01/17/ | | [place], [place] | [address] | | | 2011 | | [address] | [phone] | | | | | [phone] | | | +--------+ + + + [...] continue to have his labs drawn in [place]. He will continue to see his other physicia ns as needed. DICTATED BY: Brianna Rodriguez MD Radiation Oncology JOB #: [id number] EXT JOB #:[id number] cc: MD Alia Loza MD Spencer N. Ashton, MD <Electronically Signed by Brianna Rodriguez MD> 01/10/12 1242 documented in this encounter Plan of Treatment Not on filedocumented as of this encounter Visit Diagnoses Not on filedocumented in this encounter"
--- OUTSIDE RECORDS SUMMARY | ~2019-07-28 | XMS | Encounter Summary ---
Demographics + + + | Address | [address] | | | [place] [address] | + + + | Home Phone | | + + + | Preferred Language | Unknown | + + + | Marital Status | | + + + | Sabianism Affiliation | 1001 | + + + [...] [address] | | | | | [address] | | + + + + + | Mechelle Vidal | ECON | [place] | | | | | [address] | | + + + + + Care Team Providers + +------+ + | Care Can Line Operator Name | Role | Phone | [...] | | | | 2006 | | [address] | | | | | | [phone] | | | +--------+ + + + [...]
--- OUTSIDE RECORDS SUMMARY | ~2019-07-28 | XMS | Encounter Summary ---
Demographics + + + | Address | [address] | | | [place] [address] | + + + | Home Phone | | + + + | Preferred Language | Unknown | + + + | Marital Status | | + + + | Temple Affiliation | 1001 | + + + [...] [place] | | | | | [address] | | + + + + + | Mechelle Vidal | ECON | [place] | | | | | [address] | | + + + + + Care Team Providers + +------+ + | Care Shake Cutter Name | Role | Phone | + +------+ + | Naeem Nair MD | PCP | | + +------+ + Encounter Details +--------+ + + + + | Date | Type | Department | Care Team | Description | +--------+ + + + + | 07/10/ | Hospital | [facility] | Catarino Timoteo N, | | | 2011 - | Encounter | MED CTR CANCER | [place] [address] | | | | | [place] [address] | [place] | | | 07/19/ | | [place] | [address] | | | 2011 | | [address] | [phone] | | | | | [phone] | | | +--------+ + + + [...] | + +--------+ + + + | TESTOSTERONE, TOTAL | Routin | 07/10/2012 | | Results for this | | | e | 12:22 PM | | procedure are in the | | | | PST | | results section. | + +--------+ + + + documented in this encounter Results Testosterone, Total (07/10/2012 12:22 PM PST) + + + + + + | Component | Value | Ref Range | Performed | Pathologist | | | | | At | Signature | + + + + + + | Testosteron | 11 (L)Comment: Testing | 168 - 758 ng/dL | [place] | | | e | performed on the [facility] | | [facility] | | | | [facility] | | MEDICAL | | | | Analyzer. | | CENTER - | | | | | | LABORATORY | | + + + + + + + + | Specimen | + + | | + + + + + + + | Performing | Address | City/State/Zipcode | Phone Number | | Organization | | | | + + + + + | [facility] | [address] | [place] | [phone] | | [facility] | | [address] | | | - LABORATORY | | | | + + + + + | [facility] | [address] | [place] | | | [facility] | | [address] | | | - LABORATORY | | | | + + + + + documented in this encounter Visit Diagnoses Not on filedocumented in this encounter"
--- OUTSIDE RECORDS SUMMARY | ~2019-07-28 | XMS | Encounter Summary ---
Demographics + + + | Address | [address] | | | [place] [address] | + + + | Home Phone | | + + + | Preferred Language | Unknown | + + + | Marital Status | | + + + | Taoism Affiliation | 1001 | + + + | Race | Unknown | + + + | Ethnic Group | Unknown | + + + Author + + + | Author | [facility] | | | and [place] | + + + | Organization | [facility] | | | [...] [address] | | | | | [address] | | + + + + + | Mechelle Vidal | ECON | [place] | | | | | [address] | | + + + + + Care Team Providers + +------+ + | Care Sustainability Project Manager Name | Role | Phone | + +------+ + PCP | Unavailable | + +------+ + Encounter Details +--------+ + + + + | Date | Type | Department | Care Team | Description | +--------+ + + + + | 11/15/ | Hospital | [facility] | | | | 2005 - | Encounter | MED CTR GENERIC OP | | | | | | CONV DEPT [address] | | | | 11/17/ | | [place], | | | | 2005 | | [place] [address] | | | | | | [phone] | | | +--------+ + + + [...]
--- OUTSIDE RECORDS SUMMARY | ~2019-07-28 | XMS | Encounter Summary ---
Demographics + + + | Address | [address] | | | [place] [address] | + + + | Home Phone | | + + + | Preferred Language | Unknown | + + + | Marital Status | | + + + | Mormonism Affiliation | 1001 | + + + | Race | Unknown | + + + | Ethnic Group | Unknown | + + + Author + + + | Author | [facility] | | | and [place] | + + + | Organization | [facility] | | | and [...] [address] | | | | | [address] | | + + + + + | Mehcelle Vidal | ECON | [place] | | | | | [address] | | + + + + + Care Team Providers + +------+ + | Care Printed Products Assembler Name | Role | Phone | + [...] | | | | 2002 | | [address] | | | | | | [phone] | | | +--------+ + + + [...]
--- OUTSIDE RECORDS SUMMARY | ~2019-07-28 | XMS | Encounter Summary ---
Demographics + + + | Address | [address] | | | [place] [address] | + + + | Home Phone | | + + + | Preferred Language | Unknown | + + + | Marital Status | | + + + | Oriental Orthodox Affiliation | 1001 | + + + | Race | Unknown | + + + | Ethnic Group | Unknown | + + + Author + + + | Author | [facility] | | | and [place] | + + + | Organization | [facility] | | [...] [address] | | | | | [address] | | + + + + + | Mechelle Vidal | ECON | [place] | | | | | [address] | | + + + + + Care Team Providers + +------+ + | Care Senior Applications Architect Name | Role | Phone | + +------+ + PCP | Unavailable | + +------+ + Encounter Details +--------+ + + + + | Date | Type | Department | Care Team | Description | +--------+ + + + + | 10/21/ | Hospital | [facility] | | | | 2001 | Encounter | MED CTR XRAY [address] | | | | | | [place] | | | | | | [place] [address] | | | | | | [phone] | | | +--------+ + + + [...]
--- OUTSIDE RECORDS SUMMARY | ~2019-07-28 | XMS | Encounter Summary ---
Demographics + + + | Address | [address] | | | [place] [address] | + + + | Home Phone | | + + + | Preferred Language | Unknown | + + + | Marital Status | | + + + | Mandaen Affiliation | 1001 | + + + | Race | Unknown | + + + | Ethnic Group | Unknown | + + + Author + + + | Author | [facility] | | | and [place] | + + + | Organization | [facility] | | | [...] [address] | | | | | [address] | | + + + + + | Mechelle Vidal | ECON | [place] | | | | | [address] | | + + + + + Care Team Providers + +------+ + | Care Roll Repairer Name | Role | Phone | [...] | | | | 2006 | | [address] | | | | | | [phone] | | | +--------+ + + + [...]
--- OUTSIDE RECORDS SUMMARY | ~2019-07-28 | XMS | Encounter Summary ---
Demographics + + + | Address | [address] | | | [place] [address] | + + + | Home Phone | | + + + | Preferred Language | Unknown | + + + | Marital Status | | + + + | Church Affiliation | 1001 | + + + [...] [address] | | | | | [address] | | + + + + + | Mechelle Vidal | ECON | [place] | | | | | [address] | | + + + + + Care Team Providers + +------+ + | Care Volunteer Firefighter Name | Role | Phone | + +------+ + PCP | Unavailable | + +------+ + Encounter Details +--------+ + + + + | Date | Type | Department | Care Team | Description | +--------+ + + + + | 11/07/ | [facility] | | | [facility] | Encounter | MED CTR XRAY [address] | | | | | | [place] | | | | | | [place] [address] | | | | | | [phone] | | | +--------+ + + + [...]
--- OUTSIDE RECORDS SUMMARY | ~2019-07-28 | XMS | Encounter Summary ---
Demographics + + + | Address | [address] | | | [place] [address] | + + + | Home Phone | | + + + | Preferred Language | Unknown | + + + | Marital Status | | + + + | Uatsdin Affiliation | 1001 | + + + [...] + + + + + | Alber Mcekon | ECON | [address] | | | | | [place] | | | | | [address] | | + + + + + | Mechelle Vidal | ECON | [place] | | | | | [address] | | + + + + + Care Team Providers + +------+ + | Care Military Pay Clerk Name | Role | Phone | + +------+ + PCP | Unavailable | + +------+ + Encounter Details +--------+ + + + + | Date | Type | Department | Care Team | Description | +--------+ + + + + | 10/20/ | Hospital [facility] | | | 2004 - | Encounter | MED CTR GENERIC OP | | | | | | CONV DEPT [address] | | | | 01/18/ | | [place], | | | | 2004 | | [place] [address] | | | | | | [phone] | | | +--------+ + + + [...]
--- OUTSIDE RECORDS SUMMARY | ~2019-07-28 | XMS | Encounter Summary ---
Demographics + + + | Address | [address] | | | [place] [address] | + + + | Home Phone | | + + + | Preferred Language | Unknown | + + + | Marital Status | | + + + | Cheondoism Affiliation | 1001 | + + + | Race | Unknown | + + + | Ethnic Group | Unknown | + + + Author + + + | Author | [facility] | | | and [place] | + + + | Organization | [facility] | | [...] [address] | | | | | [address] | | + + + + + | Mechelle Vidal | ECON | [place] | | | | | [address] | | + + + + + Care Team Providers + +------+ + | Care Yacht Builder Name | Role | Phone | + [...] | | | | 2001 | | [address] | | | | | | [phone] | | | +--------+ + + + [...]
--- OUTSIDE RECORDS SUMMARY | ~2019-07-28 | XMS | Encounter Summary ---
Demographics + + + | Address | [address] | | | [place] [address] | + + + | Home Phone | | + + + | Preferred Language | Unknown | + + + | Marital Status | | + + + | Jewish Affiliation | 1001 | + + + | Race | Unknown | + + + | Ethnic Group | Unknown | + + + Author + + + | Author | [facility] | | | and [place] | + + + | Organization | [facility] | | | [...] [address] | | | | | [address] | | + + + + + | Mechelle Vidal | ECON | [place] | | | | | [address] | | + + + + + Care Team Providers + +------+ + | Care Shop Manager Name | Role | Phone | [...] | | | | 2001 | | [address] | | | | | | [phone] | | | +--------+ + + + [...]
--- OUTSIDE RECORDS SUMMARY | ~2019-07-28 | XMS | Encounter Summary ---
Demographics + + + | Address | [address] | | | [place] [address] | + + + | Home Phone | | + + + | Preferred Language | Unknown | + + + | Marital Status | | + + + | Scientologist Affiliation | 1001 | + + + | Race | Unknown | + + + | Ethnic Group | Unknown | + + + Author + + + | Author | [facility] | | | and [place] | + + + | Organization | [facility] | | | [...] [address] | | | | | [address] | | + + + + + | Mechelle Vidal | ECON | [place] | | | | | [address] | | + + + + + Care Team Providers + +------+ + | Care Production Sanitizer Name | Role | Phone | + [...] | | | | 2008 | | [address] | | | | | | [phone] | | | +--------+ + + + [...]
--- OUTSIDE RECORDS SUMMARY | ~2019-07-28 | XMS | Encounter Summary ---
Demographics + + + | Address | [address] | | | [place] [address] | + + + | Home Phone [...] [address] | | | | | [address] | | + + + + + | Mechelle Vidal | ECON | [place] | | | | | [address] | | + + + + + Care Team Providers + +------+ + | Care Jack Tamp Operator Name | Role | Phone | [...] | | | | 2008 | | [address] | | | | | | [phone] | | | +--------+ + + + [...]
--- OUTSIDE RECORDS SUMMARY | ~2019-07-28 | XMS | Encounter Summary ---
Demographics + + + | Address | [address] | | | [place] [address] | + + + | Home Phone | | + + + | Preferred Language | Unknown | + + + | Marital Status | | + + + | Sikhism Affiliation | 1001 | + + + | Race | Unknown | + + + | Ethnic Group | Unknown | + + + Author + + + | Author | [facility] | | | and Jorgeana | + + + | Organization | [facility] | | | and [...] [place] | | | | | [address] | | + + + + + | Mechelle Vidal | ECON | [place] | | | | | [address] | | + + + + + Care Team Providers + +------+ + | Care Technical Data Analyst Name | Role | Phone | [...] | | [place] | [place] [address] | | | | | [address] | [phone] | | | | | [phone] | | | +--------+ + + + [...] 2.49 cm AR Dec | | | [place]: 1.99 m/s2 AR Dec Time: 2107.85 ms [...] m/s Lateral E/e': 10.58 | | | Machine Stitcher: [id number] Authenticated by: Hipolito Suarez | | [...] cmLVIDd: 3.73 cmLVPWd: 1.02 cmLVOT Area: 3.12 [id number] Diam: | | 1.99 cm%FS: 38.08 %EF(Teich): [...] (A-L): 15.42 ml/m2LAAs | | A2C: 12.67 [id number] A-L A2C: 30.25 mlLALs A2C: 4.50 cmLAAs A4C: 14.55 tm8XAFLM | | A-L A4C: 41.62 mlLALs A4C: 4.31 cmRAAs: 13.92 [id number] A-L: 37.79 mlRAESV MOD: | | 35.28 mlRALs: 4.35 cmTAPSE: 2.49 cmAR Dec [place]: 1.99 m/s2AR Dec Time: 2106. | | msAR maxP.62 mmHgAR PHT: 611.27 msAR Vmax: 4.20 m/Alva maxP.12 mmHgAV | | meanP.84 mmHgAV Vmax: 1.59 m/Alva Vmean: 1.14 m/Alva VTI: 34.41 cmAVA Vmax: | | 2.76 cm2AVA (VTI): 3.27 si2PSVZ Vmax: 0.00 cm2/m2AVAI (VTI): 0.00 cm2/m2LVOT | | maxP.93 mmHgLVOT meanP.33 mmHgLVSI Dopp: 47.98 ml/m2LVSV Dopp: 112.76 | | mlLVOT Vmax: 1.40 m/sLVOT Vmean: 1.11 m/sLVOT VTI: 36.07 cmMV A Jerry: 0.91 m/sMV | | DecT: 209.15 msMV E Jerry: 0.82 m/sMV E/A Ratio: 0.90MV PHT: 60.65 msMVA By PHT: | | 3.62 qz8Wvmmwj e': 0.06 m/sSeptal E/e': 12.63Lateral e': 0.07 m/sLateral E/e': | | 10.58 Machine Stitcher: [id number] by: Hipolito Wooten Date/Time: 08-03-2017 | [...] | |TAPSE: 2.49 cm | |AR Dec [place]: 1.99 m/s2 | |AR Dec Time: 2107.85 [...] | |Lateral E/e': 10.58 | | | |Machine Stitcher: DBS | |Authenticated by: Hipolito Cullen | [...]
--- OUTSIDE RECORDS SUMMARY | ~2019-07-28 | XMS | Encounter Summary ---
Demographics + + + | Address | [address] | | | [place] [address] | + + + | Home Phone | | + + + | Preferred Language | Unknown | + + + | Marital Status | | + + + | Caodaism Affiliation | 1001 | + + + | Race | Unknown | + + + | Ethnic Group | Unknown | + + + Author + + + | Author | [facility] | | | and Jorgeana | + + + | Organization | [facility] | | | and [...] [address] | | | | | [address] | | + + + + + | Mechelle Vidal | ECON | [place] | | | | | [address] | | + + + + + Care Team Providers + +------+ + | Care Cuff Folder Name | Role | Phone | + +------+ + PCP | Unavailable | + +------+ + Encounter Details +--------+ + + + + | Date | Type | Department | Care Team | Description | +--------+ + + + + | 06/15/ | Hospital | [facility] | | | | 2009 - | Encounter | MED CTR CANCER | | | | | | CENTER [address] | | | | 06/19/ | | [place] | | | | 2009 | | [address] | | | | | | [phone] | | | +--------+ + + + [...]
--- OUTSIDE RECORDS SUMMARY | ~2019-07-28 | XMS | Clinical Summary ---
Demographics + + + | Address | [address] | | | [place] [address] | + + + | Home Phone | | + + + | Preferred Language | Unknown | + + + | Marital Status | | + + + | Restorationist Affiliation | 1001 | + + + | Race | Unknown | + + + | Ethnic Group | Unknown | + + + Author + + + | Author | [facility] | | | and [place] | + + + | Organization | [facility] | | | [...] [address] | | | | | [address] | | + + + + + | Mechelle Vidal | ECON | [place] | | | | | [address] | | + + + + + Care Team Providers + +------+ + | Care Molder Operator Name | Role | Phone | [...] +--------+ +---------+--------+ | MEDICARE | MEDICA | [id number] | 02/18/20 | [phone] | | Medica | | | RE | | 00-Pre | 5 | | re | | | PART A | | sent | | | | | | AND B | | | | | | + +--------+ +--------+ +---------+--------+ | MEDICARE | MEDICA | [id number] | 02/18/20 | [phone] | | Medica | | | RE | | 00-Pre | 5 | | re | | | PART A | | sent | | | | | | AND B | | | | | | + +--------+ +--------+ +---------+--------+ | MEDICAID [place] | MEDICA | [id number] | Effect | [phone] | | Medica [...] [place] | | | 1 (Home) | [address] | | | | | | [phone] | | | | | | | 1 (Work) | | + +--------+ +--------+ + + | Akhil Mckeon | Person | Self | [birth year] | [address] | | | al/Fam | | 1935 | [phone] | [place] | | | [place] | | | 1 (Home) | [address] | + +--------+ +--------+ + + Advance Directives + + + + + | Type | Date Recorded | Patient | Explanation | | | | Instrument Assembler | | + + + + + | Power of | | | | | Workers Compensation Examiner | | | | + + + + +"
--- OUTSIDE RECORDS SUMMARY | ~2019-07-28 | XMS | Encounter Summary ---
Demographics + + + | Address | [address] | | | [place] [address] | + + + | Home Phone | | + + + | Preferred Language | Unknown | + + + | Marital Status | | + + + | Pentecostal Affiliation | 1001 | + + + | Race | Unknown | + + + | Ethnic Group | Unknown | + + + Author + + + | Author | [facility] | | | and Jorgeana | + + + | Organization | [facility] | | [...] [address] | | | | | [address] | | + + + + + | Mechelle Vidal | ECON | [place] | | | | | [address] | | + + + + + Care Team Providers + +------+ + | Care University Services Program Associate Name | Role | Phone | + +------+ + PCP | Unavailable | + +------+ + Encounter Details +--------+ + + + + | Date | Type | Department | Care Team | Description | +--------+ + + + + | 10/20/ | Hospital | [facility] | | | | 2004 - | Encounter | MED CTR GENERIC OP | | | | | | CONV DEPT [address] | | | | 01/18/ | | [place], | | | | 2004 | | [place] [address] | | | | | | [phone] | | | +--------+ + + + [...]
--- OUTSIDE RECORDS SUMMARY | ~2019-07-28 | XMS | Encounter Summary ---
Demographics + + + | Address | [address] | | | [place] [address] | + + + | Home Phone [...] [address] | | | | | [address] | | + + + + + | Mechelle Vidal | ECON | [place] | | | | | [address] | | + + + + + Care Team Providers + +------+ + | Care General Manager Farm Name | Role | Phone | + +------+ + PCP | Unavailable | + +------+ + Encounter Details +--------+ + + + + | Date | Type | Department | Care Team | Description | +--------+ + + + + | 04/12/ | Hospital | [facility] | Timoteo Toribio, | | | 2010 - | Encounter | MED CTR CANCER | [place] [address] [address] | | | | | [place] [address] | [place], [place] | | | 04/19/ | | [place], [place] | [address] | | | 2010 | | [address] | [phone] | | | | | [phone] | | | +--------+ + + + [...] ONCOLOGY FOLLOWUP NOTE DIAGNOSIS: Prostate adenocarcinoma, T3N0M0, [place]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 FOLLOWUP NOTE: Mr. Akhil Mckeon is [...] Timoteo Toribio MD Radiation Oncology JOB #: [id number] EXT JOB #:[id number] <Electronicall y Signed by Timoteo Toribio MD> 05/10/11 1600 documented in this encounter Plan of Treatment Not on filedocumented as of this encounter Visit Diagnoses Not on filedocumented in this encounter"
--- OUTSIDE RECORDS SUMMARY | ~2019-07-28 | XMS | Encounter Summary ---
Demographics + + + | Address | [address] | | | [place] [address] | + + + | Home Phone | | + + + | Preferred Language | Unknown | + + + | Marital Status | | + + + | Tenriism Affiliation | 1001 | + + + | Race | Unknown | + + + | Ethnic Group | Unknown | + + + Author + + + | Author | [facility] | | | and Jorgeana | + + + | Organization | 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 He continues to work a [employer] every day. PHYSICAL EXAMINATION VITAL SIGNS: Weight [...] Bassam Cristina MD Radiation Oncology JOB #: [id number] EXT JOB #:[id number] cc: MD Alia Loza MD Spencer N. Ashton, MD <Electronically Signed by Bassam Cristina MD> 04/10/12 1458 documented in this encounter Plan of Treatment Not on filedocumented as of this encounter Visit Diagnoses Not on filedocumented in this encounter"
--- OUTSIDE RECORDS SUMMARY | ~2019-07-28 | XMS | Encounter Summary ---
Demographics + + + | Address | [address] | | | [place] [address] | + + + | Home Phone [...] [address] | | | | | [address] | | + + + + + | Mechelle Vidal | ECON | [place] | | | | | [address] | | + + + + + Care Team Providers + +------+ + | Care Records Management Coordinator Name | Role | Phone | + +------+ + PCP | Unavailable | + +------+ + Encounter Details +--------+ + + + + | Date | Type | Department | Care Team | Description | +--------+ + + + + | 05/11/ | Hospital [facility] | | | | 2004 - | Encounter | MED CTR GENERIC OP | | | | | | CONV DEPT [address] | | | | 08/09/ | | [place], | | | | 2004 | | [place] [address] | | | | | | [phone] | | | +--------+ + + + [...]
--- OUTSIDE RECORDS SUMMARY | ~2019-07-28 | XMS | Encounter Summary ---
Demographics + + + | Address | [address] | | | [place] [address] | + + + | Home Phone | | + + + | Preferred Language | Unknown | + + + | Marital Status | | + + + | Judaism Affiliation | 1001 | + + + | Race | Unknown | + + + | Ethnic Group | Unknown | + + + Author + + + | Author | [facility] | | | and Jorgeana | + + + | Organization | [facility] | | | [...] [address] | | | | | [address] | | + + + + + | Mechelle Vidal | ECON | [place] | | | | | [address] | | + + + + + Care Team Providers + +------+ + | Care Information Systems Audit Manager Name | Role | Phone | + +------+ + PCP | Unavailable | + +------+ + Encounter Details +--------+ + + + + | Date | Type | Department | Care Team | Description | +--------+ + + + + | 11/15/ | Hospital | [facility] | | | | 2005 - | Encounter | MED CTR GENERIC OP | | | | | | CONV DEPT [address] | | | | 11/17/ | | [place], | | | | 2005 | | [place] [address] | | | | | | [phone] | | | +--------+ + + + [...]
--- OUTSIDE RECORDS SUMMARY | ~2019-07-28 | XMS | Encounter Summary ---
Demographics + + + | Address | [address] | | | [place] [address] | + + + | Home Phone [...] [address] | | | | | [address] | | + + + + + | Mechelle Vidal | ECON | [place] | | | | | [address] | | + + + + + Care Team Providers + +------+ + | Care Neurology Hospitalist Name | Role | Phone | + [...] | | | | 2008 | | [address] | | | | | | [phone] | | | +--------+ + + + [...]
--- OUTSIDE RECORDS SUMMARY | ~2019-07-28 | XMS | Encounter Summary ---
Demographics + + + | Address | [address] | | | [place] [address] | + + + | Home Phone | | + + + | Preferred Language | Unknown | + + + | Marital Status | | + + + | Buddhism Affiliation | 1001 | + + + [...] [address] | | | | | [address] | | + + + + + | Mechelle Vidal | ECON | [place] | | | | | [address] | | + + + + + Care Team Providers + +------+ + | Care Community Service Officer Coordinator Name | Role | Phone | [...] | | | | 2003 | | [address] | | | | | | [phone] | | | +--------+ + + + [...]
--- OUTSIDE RECORDS SUMMARY | ~2019-07-28 | XMS | Encounter Summary ---
Demographics + + + | Address | [address] | | | [place] [address] | + + + | Home Phone [...] [address] | | | | | [address] | | + + + + + | Mechelle Vidal | ECON | [place] | | | | | [address] | | + + + + + Care Team Providers + +------+ + | Care Shot Examiner Name | Role | Phone | + [...] | | | | 2006 | | [address] | | | | | | [phone] | | | +--------+ + + + [...]
--- OUTSIDE RECORDS SUMMARY | ~2019-07-28 | XMS | Clinical Summary ---
Demographics + + + | Address | [address] | | | [place] [address] | + + + | Home Phone | | + + + | Preferred Language | Unknown | + + + | Marital Status | | + + + | Buddhist Affiliation | 1001 | + + + [...] [address] | | | | | [address] | | + + + + + | Mechelle Vidal | ECON | [place] | | | | | [address] | | + + + + + Care Team Providers + +------+ + | Care Carbon Cutter Name | Role | Phone | [...] +--------+ +---------+--------+ | MEDICARE | MEDICA | [id number] | 02/18/20 | [phone] | | Medica | | | RE | | 00-Pre | 5 | | re | | | PART A | | sent | | | | | | AND B | | | | | | + +--------+ +--------+ +---------+--------+ | MEDICARE | MEDICA | [id number] | 02/18/20 | [phone] | | Medica | | | RE | | 00-Pre | 5 | | re | | | PART A | | sent | | | | | | AND B | | | | | | + +--------+ +--------+ +---------+--------+ | MEDICAID [place] | MEDICA | [id number] | Effect | [phone] | | Medica [...] [place] | | | 1 (Home) | [phone] | | | | | | [phone] | | | | | | | 1 (Work) | | + +--------+ +--------+ + + | Akhil Mckeon | Person | Self | [birth year] | [address] | | | al/Fam | | 1935 | [phone] | [place] | | | [place] | | | 1 (Home) | [address] | + +--------+ +--------+ + + Advance Directives + + + + + | Type | Date Recorded | Patient | Explanation | | | | Cafeteria Operator | | + + + + + | Power of | | | | | User Experience Architect | | | | + + + + +"
--- OUTSIDE RECORDS SUMMARY | ~2019-07-28 | XMS | Encounter Summary ---
Demographics + + + | Address | [address] | | | [place] [address] | + + + | Home Phone | | + + + | Preferred Language | Unknown | + + + | Marital Status | | + + + | Voodoo Affiliation | 1001 | + + + | Race | Unknown | + + + | Ethnic Group | Unknown | + + + Author + + + | Author | [facility] | | | and Jorgeana | + + + | Organization | [facility] | | | and [...] [address] | | | | | [address] | | + + + + + | Mechelle Vidal | ECON | [place] | | | | | [address] | | + + + + + Care Team Providers + +------+ + | Care Signalling And Communications Engineer Name | Role | Phone | + +------+ + PCP | Unavailable | + +------+ + Encounter Details +--------+ + + + + | Date | Type | Department | Care Team | Description | +--------+ + + + + | 08/10/ | Hospital | [facility] | | | | 2005 - | Encounter | MED CTR CANCER | | | | | | CENTER [address] | | | | 08/19/ | | [place] | | | | 2005 | | [address] | | | | | | [phone] | | | +--------+ + + + [...]
--- OUTSIDE RECORDS SUMMARY | ~2019-07-28 | XMS | Encounter Summary ---
Demographics + + + | Address | [address] | | | [place] [address] | + + + | Home Phone | | + + + | Preferred Language | Unknown | + + + | Marital Status | | + + + | Latter-Day Affiliation | 1001 | + + + [...] [address] | | | | | [address] | | + + + + + | Mechelle Vidal | ECON | [place] | | | | | [address] | | + + + + + Care Team Providers + +------+ + | Care Valve Grinder Name | Role | Phone | + +------+ + PCP | Unavailable | + +------+ + Encounter Details +--------+ + + + + | Date | Type | Department | Care Team | Description | +--------+ + + + + | 11/07/ | Hospital | [facility] | | | | 2001 | Encounter | MED CTR XRAY [address] | | | | | | [place] | | | | | | [place] [address] | | | | | | [phone] | | | +--------+ + + + [...]
--- OUTSIDE RECORDS SUMMARY | ~2019-07-28 | XMS | Encounter Summary ---
Demographics + + + | Address | [address] | | | [place] [address] | + + + | Home Phone [...] [address] | | | | | [address] | | + + + + + | Mechelle Vidal | ECON | [place] | | | | | [address] | | + + + + + Care Team Providers + +------+ + | Care Truck Rental Manager Name | Role | Phone | [...] | | | | 2009 | | [address] | | | | | | [phone] | | | +--------+ + + + [...]
--- OUTSIDE RECORDS SUMMARY | ~2019-07-28 | XMS | Encounter Summary ---
Demographics + + + | Address | [address] | | | [place] [address] | + + + | Home Phone | | + + + | Preferred Language | Unknown | + + + | Marital Status | | + + + | Latter-Day Affiliation | 1001 | + + + | Race | Unknown | + + + | Ethnic Group | Unknown | + + + Author + + + | Author | [facility] | | | and Jorgeana | + + + | Organization | [facility] | | [...] [address] | | | | | [address] | | + + + + + | Mechelle Vidal | ECON | [place] | | | | | [address] | | + + + + + Care Team Providers + +------+ + | Care Comb Tender Name | Role | Phone | + +------+ + PCP | Unavailable | + +------+ + Encounter Details +--------+ + + + + | Date | Type | Department | Care Team | Description | +--------+ + + + + | 08/10/ | Hospital | [facility] | | | | 2005 - | Encounter | MED CTR CANCER | | | | | | CENTER [address] | | | | 08/19/ | | [place] | | | | 2005 | | [address] | | | | | | [phone] | | | +--------+ + + + [...]
--- OUTSIDE RECORDS SUMMARY | ~2019-07-28 | XMS | Encounter Summary ---
Demographics + + + | Address | [address] | | | [place] [address] | + + + | Home Phone | | + + + | Preferred Language | Unknown | + + + | Marital Status | | + + + | Samaritan Affiliation | 1001 | + + + [...] [address] | | | | | [address] | | + + + + + | Mechelle Vidal | ECON | [place] | | | | | [address] | | + + + + + Care Team Providers + +------+ + | Care Health Policy Analyst Name | Role | Phone | + +------+ + PCP | Unavailable | + +------+ + Encounter Details +--------+ + + + + | Date | Type | Department | Care Team | Description | +--------+ + + + + | 04/12/ | Hospital | [facility] | Timoteo Toribio, | | | 2010 - | Encounter | MED CTR CANCER | [place] [address] | | | | | [place] [address] | [place], [place] | | | 04/19/ | | [place] | [address] | | | 2010 | | [address] | [phone] | | | | | [phone] | | | +--------+ + + + [...] ONCOLOGY FOLLOWUP NOTE DIAGNOSIS: Prostate adenocarcinoma, T3N0M0, [place] 3+3=6. FOLLOWUP NOTE: Mr. Akhil Mckeon is [...] Timoteo Toribio MD Radiation Oncology JOB #: [id number] EXT JOB #:[id number] <Electronicall y Signed by Timoteo Toribio MD> 05/10/11 1600 documented in this encounter Plan of Treatment Not on filedocumented as of this encounter Visit Diagnoses Not on filedocumented in this encounter"
--- OUTSIDE RECORDS SUMMARY | ~2019-07-28 | XMS | Encounter Summary ---
Demographics + + + | Address | [address] | | | [place] [address] | + + + | Home Phone | | + + + | Preferred Language | Unknown | + + + | Marital Status | | + + + | Spiritism Affiliation | 1001 | + + + | Race | Unknown | + + + | Ethnic Group | Unknown | + + + Author + + + | Author | [facility] | | | and Jorgeana | + + + | Organization | [facility] | | [...] [address] | | | | | [address] | | + + + + + | Mechelle Vidal | ECON | [place] | | | | | [address] | | + + + + + Care Team Providers + +------+ + | Care Tip Stitcher Name | Role | Phone | + [...] | | | | 2010 | | [address] | | | | | | [phone] | | | +--------+ + + + [...]
--- OUTSIDE RECORDS SUMMARY | ~2019-07-28 | XMS | Clinical Summary ---
Demographics + + + | Address | [address] | | | [place] [address] | + + + | Home Phone | | + + + | Preferred Language | Unknown | + + + | Marital Status | Unknown | + + + | Restoration Affiliation | Unknown | + + + | Race | Unknown | + + + | Ethnic Group | Unknown | + + + Author + + + | Author | [facility] (Historical as of | | | 04-05-19) | + + + | Organization | [facility] (Historical as of | | | 04-05-19) [...] [place], [place] | | | | | [address] | | + + + + + Care Team Providers + +------+ + | Care Commercial Development Manager Name | Role | Phone | [...] +------+-------+ + | MEDICARE | MEDICA | [id number] | | | [address] | | | RE | | | | [place] [address] | | | IP-OP | | | | | + +--------+ +------+-------+ + | MEDICAID | MEDICA | [id number] | | | [address] | | | [place] | | | | [place] | | | [place] | | | | [address] | + +--------+ +------+-------+ + + +--------+ [...] | | | [place] | | | [address] | [address] | + +--------+ +--------+ + +"
--- OUTSIDE RECORDS SUMMARY | ~2019-07-28 | XMS | Encounter Summary ---
Demographics + + + | Address | [address] | | | [place] [address] | + + + | Home Phone [...] [place] | | | | | [address] | | + + + + + | Mechelle Vidal | ECON | [place] | | | | | [address] | | + + + + + Care Team Providers + +------+ + | Care Avionics Systems Technician Name | Role | Phone | + +------+ + | Naeem Nair MD | PCP | | + +------+ + Encounter Details +--------+ + + + + | Date | Type | Department | Care Team | Description | +--------+ + + + + | 10/16/ | Hospital | [facility] | CatarinoTimoteo, | | | 2012 - | Encounter | MED CTR CANCER | [address] | | | | | [place] [address] | [place] | | | 10/17/ | | [place] | [address] | | | 2012 | | [address] | [phone] | | | | | [phone] | | | +--------+ + + + [...]
--- OUTSIDE RECORDS SUMMARY | ~2019-07-28 | XMS | Encounter Summary ---
Demographics + + + | Address | [address] | | | [place] [address] | + + + | Home Phone [...] [address] | | | | | [address] | | + + + + + | Mechelle Vidal | ECON | [place] | | | | | [address] | | + + + + + Care Team Providers + +------+ + | Care Ferryboat Deckhand Name | Role | Phone | + +------+ + PCP | Unavailable | + +------+ + Encounter Details +--------+ + + + + | Date | Type | Department | Care Team | Description | +--------+ + + + + | 08/10/ | Hospital | [facility] | | | | 2004 - | Encounter | [facility] | | | | | | CONV DEPT [address] | | | | 11/08/ | | [place], | | | | 2005 | | [place] [address] | | | | | | [phone] | | | +--------+ + + + [...]
--- OUTSIDE RECORDS SUMMARY | ~2019-07-28 | XMS | Encounter Summary ---
Demographics + + + | Address | [address] | | | [place] [address] | + + + | Home Phone [...] [address] | | | | | [address] | | + + + + + | Mechelle Vidal | ECON | [place] | | | | | [address] | | + + + + + Care Team Providers + +------+ + | Care Spragger Name | Role | Phone | + [...] | | | | 2006 | | [address] | | | | | | [phone] | | | +--------+ + + + [...]
--- OUTSIDE RECORDS SUMMARY | ~2019-07-28 | XMS | Encounter Summary ---
Demographics + + + | Address | [address] | | | [place] [address] | + + + | Home Phone | | + + + | Preferred Language | Unknown | + + + | Marital Status | | + + + | Mosque Affiliation | 1001 | + + + [...] [place] | | | | | [address] | | + + + + + | Mechelle Vidal | ECON | [place] | | | | | [address] | | + + + + + Care Team Providers + +------+ + | Care Nuclear Operator Name | Role | Phone | [...] | | [place] [address] | [place] [address] | | | | | [address] | [phone] | | | | | [phone] | | | +--------+ + + + [...] 2.49 cm AR Dec | | | [place]: 1.99 m/s2 AR Dec Time: 2107.85 ms [...] m/s Lateral E/e': 10.58 | | | Erosion Control Coordinator: REBEKAH Authenticated by: Hipolito Suarez | | | Date/Time: 08-03-2017 14:15:57 | | + + + + + | Procedure Note | + + | Theodore, Rad Conversion - 04/10/2019 8:37 PM PDT Patient Name: Eileen Mckeon | | of : 1935 Performing Physician: Hipolito | | [facility] INDICATIONS------ | | -----Murmur CONCLUSIONS 1. The [...] cmLVIDd: 3.73 cmLVPWd: 1.02 cmLVOT Area: 3.12 kx8SETW Diam: | | 1.99 cm%FS: 38.08 %EF(Teich): [...] (A-L): 15.42 ml/m2LAAs | | A2C: 12.67 [id number] A-L A2C: 30.25 mlLALs A2C: 4.50 cmLAAs A4C: 14.55 ub7NCLXT | | A-L A4C: 41.62 mlLALs A4C: 4.31 cmRAAs: 13.92 bs5ICTZS A-L: 37.79 mlRAESV MOD: | | 35.28 mlRALs: 4.35 cmTAPSE: 2.49 cmAR Dec [place]: 1.99 m/s2AR Dec Time: 2106. | | msAR maxP.62 mmHgAR PHT: 611.27 msAR Vmax: 4.20 m/Alva maxP.12 mmHgAV | | meanP.84 mmHgAV Vmax: 1.59 m/Alva Vmean: 1.14 m/Alva VTI: 34.41 cmAVA Vmax: | | 2.76 cm2AVA (VTI): 3.27 au3TGRV Vmax: 0.00 cm2/m2AVAI (VTI): 0.00 cm2/m2LVOT | | maxP.93 mmHgLVOT meanP.33 mmHgLVSI Dopp: 47.98 ml/m2LVSV Dopp: 112.76 | | mlLVOT Vmax: 1.40 m/sLVOT Vmean: 1.11 m/sLVOT VTI: 36.07 cmMV A Jerry: 0.91 m/sMV | | DecT: 209.15 msMV E Jerry: 0.82 m/sMV E/A Ratio: 0.90MV PHT: 60.65 msMVA By PHT: | | 3.62 rb8Ngyldk e': 0.06 m/sSeptal E/e': 12.63Lateral e': 0.07 m/sLateral E/e': | | 10.58 Erosion Control Coordinator: REBEKAHAuthenticated by: Hipolito Wooten Date/Time: 08-03-2017 | [...] | |TAPSE: 2.49 cm | |AR Dec [place]: 1.99 m/s2 | |AR Dec Time: 2107.85 [...] | |Lateral E/e': 10.58 | | | |Erosion Control Coordinator: DBS | |Authenticated by: Hipolito Cullen | [...]
--- OUTSIDE RECORDS SUMMARY | ~2019-07-28 | XMS | Encounter Summary ---
Demographics + + + | Address | [address] | | | [place] [address] | + + + | Home Phone [...] [address] | | | | | [address] | | + + + + + | Mechelle Vidal | ECON | [place] | | | | | [address] | | + + + + + Care Team Providers + +------+ + | Care Assistant Hvac Mechanic Name | Role | Phone | + [...] | | | | 2001 | | [address] | | | | | | [phone] | | | +--------+ + + + [...]
--- OUTSIDE RECORDS SUMMARY | ~2019-07-28 | XMS | Encounter Summary ---
Demographics + + + | Address | [address] | | | [place] [address] | + + + | Home Phone | | + + + | Preferred Language | Unknown | + + + | Marital Status | | + + + | Jain Affiliation | 1001 | + + + | Race | Unknown | + + + | Ethnic Group | Unknown | + + + Author + + + | Author | [facility] | | | and [place]ana | + + + | Organization | [facility] | | | [...] [address] | | | | | [address] | | + + + + + | Mechelle Vidal | ECON | [place] | | | | | [address] | | + + + + + Care Team Providers + +------+ + | Care Pinked Edge Sewing Machine Operator Name | Role | Phone | + +------+ + PCP | Unavailable | + +------+ + Encounter Details +--------+ + + + + | Date | Type | Department | Care Team | Description | +--------+ + + + + | 01/25/ | Hospital [facility] | | | | 2004 - | Encounter | MED CTR GENERIC OP | | | | | | CONV DEPT [address] | | | | 04/25/ | | [place], | | | | 2004 | | [place] [address] | | | | | | [phone] | | | +--------+ + + + [...]
--- OUTSIDE RECORDS SUMMARY | ~2019-07-28 | XMS | Encounter Summary ---
Demographics + + + | Address | [address] | | | [place] [address] | + + + | Home Phone [...] [place] | | | | | [address] | | + + + + + | Mechelle Vidal | ECON | [place] | | | | | [address] | | + + + + + Care Team Providers + +------+ + | Care Paper Machine Operator Name | Role | Phone | + +------+ + | Naeem Nair MD | PCP | | + +------+ + Encounter Details +--------+ + + + + | Date | Type | Department | Care Team | Description | +--------+ + + + + | 11/27/ | Hospital | [facility] | Catarino Timoteo N, | | | 2012 - | Encounter | MED CTR CANCER | [place] [address] | | | | | [place] [address] | [place] | | | 12/17/ | | [place] | [address] | | | 2012 | | [address] | [phone] | | | | | [phone] | | | +--------+ + + + [...]
--- OUTSIDE RECORDS SUMMARY | ~2019-07-28 | XMS | Encounter Summary ---
Demographics + + + | Address | [address] | | | [place] [address] | + + + | Home Phone [...] + | Author | [facility] | | | and [place] | + + + | Organization | [facility] | | | and [...] [address] | | | | | [address] | | + + + + + | Mechelle Vidal | ECON | [place] | | | | | [address] | | + + + + + Care Team Providers + +------+ + | Care Finisher Cold Rolling Name | Role | Phone | + [...] | | | | 2002 | | [address] | | | | | | [phone] | | | +--------+ + + + [...]
--- OUTSIDE RECORDS SUMMARY | ~2019-07-28 | XMS | Encounter Summary ---
Demographics + + + | Address | [address] | | | [place] [address] | + + + | Home Phone [...] [address] | | | | | [address] | | + + + + + | Mechelle Vidal | ECON | [place] | | | | | [address] | | + + + + + Care Team Providers + +------+ + | Care In Home Tutor Name | Role | Phone | + [...] | | | | 2007 | | [address] | | | | | | [phone] | | | +--------+ + + + [...]
--- OUTSIDE RECORDS SUMMARY | ~2019-07-28 | XMS | Encounter Summary ---
Demographics + + + | Address | [address] | | | [place] [address] | + + + | Home Phone | | + + + | Preferred Language | Unknown | + + + | Marital Status | | + + + | Voodoo Affiliation | 1001 | + + + | Race | Unknown | + + + | Ethnic Group | Unknown | + + + Author + + + | Author | [facility] | | | and [place]ana | + + + | Organization | [facility] | | [...] [address] | | | | | [address] | | + + + + + | Mechelle Vidal | ECON | [place] | | | | | [address] | | + + + + + Care Team Providers + +------+ + | Care Occupational Work Experience Teacher Name | Role | Phone | [...] | | | | 2009 | | [address] | | | | | | [phone] | | | +--------+ + + + [...]
--- OUTSIDE RECORDS SUMMARY | ~2019-07-28 | XMS | Encounter Summary ---
Demographics + + + | Address | [address] | | | [place] [address] | + + + | Home Phone [...] [address] | | | | | [address] | | + + + + + | Mechelle Vidal | ECON | [place] | | | | | [address] | | + + + + + Care Team Providers + +------+ + | Care Furniture Dipper Name | Role | Phone | + [...] | | | | 2007 | | [address] | | | | | | [phone] | | | +--------+ + + + [...]
--- OUTSIDE RECORDS SUMMARY | ~2019-07-28 | XMS | Clinical Summary ---
Demographics + + + | Address | [address] | | | [place] [address] | + + + | Home Phone | | + + + | Preferred Language | Unknown | + + + | Marital Status | Unknown | + + + | Caodaism Affiliation | Unknown | + + + | Race | Unknown | + + + | Ethnic Group | Unknown | + + + Author + + + | Author | [facility] [employer] (Historical as of | | | 04-05-19) | + + + | Organization | [facility] [employer] (Historical as of | | | 04-05-19) [...] [place], [place] | | | | | [address] | | + + + + + Care Team Providers + +------+ + | Care Customer Assistance Associate Name | Role | Phone | [...] +------+-------+ + | MEDICARE | MEDICA | [id number] | | | [address] | | | RE | | | | [place] [address] | | | IP-OP | | | | | + +--------+ +------+-------+ + | MEDICAID | MEDICA | [id number] | | | [address] | | | [place] | | | | [place] | | | [place] | | | | [address] | + +--------+ +------+-------+ + + +--------+ [...] | | | [place] | | | [address] | [address] | + +--------+ +--------+ + +"
--- OUTSIDE RECORDS SUMMARY | ~2019-07-28 | XMS | Encounter Summary ---
Demographics + + + | Address | [address] | | | [place] [address] | + + + | Home Phone [...] [address] | | | | | [address] | | + + + + + | Mechelle Vidal | ECON | [place] | | | | | [address] | | + + + + + Care Team Providers + +------+ + | Care Advanced Practice Rn Name | Role | Phone | + [...] | | | | 2007 | | [address] | | | | | | [phone] | | | +--------+ + + + [...]
--- OUTSIDE RECORDS SUMMARY | ~2019-07-28 | XMS | Encounter Summary ---
Demographics + + + | Address | [address] | | | [place] [address] | + + + | Home Phone [...] [place] | | | | | [address] | | + + + + + | Mechelle Vidal | ECON | [place] | | | | | [address] | | + + + + + Care Team Providers + +------+ + | Care Briquetter Operator Name | Role | Phone | + +------+ + | Naeem Nair MD | PCP | | + +------+ + Encounter Details +--------+ + + + + | Date | Type | Department | Care Team | Description | +--------+ + + + + | 10/16/ | Hospital | [facility] | CatarinoTimoteo, | | | 2012 - | Encounter | MED CTR CANCER | [address] | | | | | [place] [address] | [place] | | | 10/17/ | | [place] | [address] | | | 2012 | | [address] | [phone] | | | | | [phone] | | | +--------+ + + + [...]
--- OUTSIDE RECORDS SUMMARY | ~2019-07-28 | XMS | Encounter Summary ---
Demographics + + + | Address | [address] | | | [place] [address] | + + + | Home Phone | | + + + | Preferred Language | Unknown | + + + | Marital Status | | + + + | Yazdanism Affiliation | 1001 | + + + [...] [address] | | | | | [address] | | + + + + + | Mechelle Vidal | ECON | [place] | | | | | [address] | | + + + + + Care Team Providers + +------+ + | Care Business Support Professional Name | Role | Phone | + +------+ + PCP | Unavailable | + +------+ + Encounter Details +--------+ + + + + | Date | Type | Department | Care Team | Description | +--------+ + + + + | 01/09/ | Hospital | [facility] | Timoteo Toribio, | | | 2011 - | Encounter | MED CTR CANCER | [place] [address] | | | | | [place] [address] | [place] | | | 01/17/ | | [place], [place] | [address] | | | 2011 | | [address] | [phone] | | | | | [phone] | | | +--------+ + + + [...] continue to have his labs drawn in [place]. He will continue to see his other physicia ns as needed. DICTATED BY: Brianna Rodriguez MD Radiation Oncology JOB #: [id number] EXT JOB #:[id number] cc: MD Alia Loza MD Spencer N. Ashton, MD <Electronically Signed by Brianna Rodriguez MD> 01/10/12 1242 documented in this encounter Plan of Treatment Not on filedocumented as of this encounter Visit Diagnoses Not on filedocumented in this encounter"
--- OUTSIDE RECORDS SUMMARY | ~2019-07-28 | XMS | Encounter Summary ---
Demographics + + + | Address | [address] | | | [place] [address] | + + + | Home Phone [...] + | Author | [facility] | | | and [place] | + + + | Organization | [facility] | | [...] [place] | | | | | [address] | | + + + + + | Mechelle Vidal | ECON | [place] | | | | | [address] | | + + + + + Care Team Providers + +------+ + | Care Comic Illustrator Name | Role | Phone | + +------+ + | Naeem Nair MD | PCP | | + +------+ + Encounter Details +--------+ + + + + | Date | Type | Department | Care Team | Description | +--------+ + + + + | 11/27/ | Hospital | [facility] | Catarino Timoteo N, | | | 2012 - | Encounter | MED CTR CANCER | [place] [address] | | | | | [place] [address] | [place] | | | 12/17/ | | [place] | [address] | | | 2012 | | [address] | [phone] | | | | | [phone] | | | +--------+ + + + [...]
--- OUTSIDE RECORDS SUMMARY | ~2019-07-28 | XMS | Encounter Summary ---
Demographics + + + | Address | [address] | | | [place] [address] | + + + | Home Phone [...] | | | | | [place] | | | | | [address] | | + + + + + | Mechelle Vidal | ECON | [place] | | | | | [address] | | + + + + + Care Team Providers + +------+ + | Care Agricultural Systems Specialist Name | Role | Phone | + +------+ + | Naeem Nair MD | PCP | | + +------+ + Encounter Details +--------+ + + + + | Date | Type | Department | Care Team | Description | +--------+ + + + + | 07/10/ | Hospital | [facility] | Catarino Timoteo N, | | | 2011 - | Encounter | MED CTR CANCER | [place] [address] [facility] | | | | | [place] [address] | [place] | | | 07/19/ | | [place] | [address] | | | 2011 | | [address] | [phone] | | | | | [phone] | | | +--------+ + + + [...] | [facility] | | | | [facility] | | MEDICAL | | | [...] + | [facility] | [address] | [place] | [phone] | | [facility] | | [address] | | | - LABORATORY | | | | + + + + + | [place] | [address] | [place] | | | [facility] | | [address] | | | - LABORATORY | | | | + + + + + documented in this encounter Visit Diagnoses Not on filedocumented in this encounter"
--- OUTSIDE RECORDS SUMMARY | ~2019-07-28 | XMS | Encounter Summary ---
Demographics + + + | Address | [address] | | | [place] [address] | + + + | Home Phone | | + + + | Preferred Language | Unknown | + + + | Marital Status | | + + + | Religion Affiliation | 1001 | + + + | Race | Unknown | + + + | Ethnic Group | Unknown | + + + Author + + + | Author | [facility] | | | and [place] | + + + | Organization | [facility] | | [...] [address] | | | | | [address] | | + + + + + | Mechelle Vidal | ECON | [place] | | | | | [address] | | + + + + + Care Team Providers + +------+ + | Care Knitting Machine Operator Helper Name | Role | Phone | [...] | | | | 2008 | | [address] | | | | | | [phone] | | | +--------+ + + + [...]
--- OUTSIDE RECORDS SUMMARY | ~2019-07-28 | XMS | Encounter Summary ---
Demographics + + + | Address | [address] | | | [place] [address] | + + + | Home Phone | | + + + | Preferred Language | Unknown | + + + | Marital Status | | + + + | Confucianist Affiliation | 1001 | + + + | Race | Unknown | + + + | Ethnic Group | Unknown | + + + Author + + + | Author | [facility] | | | and [place] | + + + | Organization | [facility] | | [...] [address] | | | | | [address] | | + + + + + | Mechelle Vidal | ECON | [place] | | | | | [address] | | + + + + + Care Team Providers + +------+ + | Care Corn Husker Machine Operator Name | Role | Phone | + +------+ + PCP | Unavailable | + +------+ + Encounter Details +--------+ + + + + | Date | Type | Department | Care Team | Description | +--------+ + + + + | 01/25/ | Hospital | [facility] | | | | 2004 - | Encounter | MED CTR GENERIC OP | | | | | | CONV DEPT [address] | | | | 04/25/ | | [place], | | | | 2004 | | [place] [address] | | | | | | [phone] | | | +--------+ + + + [...]
--- OUTSIDE RECORDS SUMMARY | ~2019-07-28 | XMS | Encounter Summary ---
Demographics + + + | Address | [address] | | | [place] [address] | + + + | Home Phone [...] [address] | | | | | [address] | | + + + + + | Mechelle Vidal | ECON | [place] | | | | | [address] | | + + + + + Care Team Providers + +------+ + | Care Nnp Name | Role | Phone | + [...] | | | | 2008 | | [address] | | | | | | [phone] | | | +--------+ + + + [...]
--- OUTSIDE RECORDS SUMMARY | ~2019-07-28 | XMS | Encounter Summary ---
Demographics + + + | Address | [address] | | | [place] [address] | + + + | Home Phone [...] [address] | | | | | [address] | | + + + + + | Mechelle Vidal | ECON | [place] | | | | | [address] | | + + + + + Care Team Providers + +------+ + | Care Charge Weigher Name | Role | Phone | + +------+ + PCP | Unavailable | + +------+ + Encounter Details +--------+ + + + + | Date | Type | Department | Care Team | Description | +--------+ + + + + | 06/28/ | Hospital | [facility] | Timoteo Toribio, | | | 2010 - | Encounter | MED CTR CANCER | [place] [address] [facility] [facility] | | | | | [place] [address] | [place] | | | 07/19/ | | [place], [place] | [address] | | | 2010 | | [address] | [phone] | | | | | [phone] | | | +--------+ + + + [...] Timoteo Toribio MD Radiation Oncology JOB #: [id number] EXT JOB #:[id number] cc: MD Alia Loza MD <Electronically Signed by Timoteo Toribio MD> 07/15/11 1100 documented in this encounter Plan of Treatment Not on filedocumented as of this encounter Visit Diagnoses Not on filedocumented in this encounter"
--- OUTSIDE RECORDS SUMMARY | ~2019-07-28 | XMS | Encounter Summary ---
Demographics + + + | Address | [address] | | | [place] [address] | + + + | Home Phone [...] [address] | | | | | [address] | | + + + + + | Mechelle Vidal | ECON | [place] | | | | | [address] | | + + + + + Care Team Providers + +------+ + | Care Warehouseman Name | Role | Phone | + [...] | | | | 2003 | | [address] | | | | | | [phone] | | | +--------+ + + + [...]
--- OUTSIDE RECORDS SUMMARY | ~2019-07-28 | XMS | Encounter Summary ---
Demographics + + + | Address | [address] | | | [place] [address] | + + + | Home Phone [...] [facility] | | | and Jogreana | + + + | Organization | [...] [address] | | | | | [address] | | + + + + + | Mechelle Vidal | ECON | [place] | | | | | [address] | | + + + + + Care Team Providers + +------+ + | Care Food Or Baggage Handling Rampman Name | Role | Phone | + [...] | | | | 2010 | | [address] | | | | | | [phone] | | | +--------+ + + + [...]
--- OUTSIDE RECORDS SUMMARY | ~2019-07-28 | XMS | Encounter Summary ---
Demographics + + + | Address | [address] | | | [place] [address] | + + + | Home Phone [...] [address] | | | | | [address] | | + + + + + | Mechelle Vidal | ECON | [place] | | | | | [address] | | + + + + + Care Team Providers + +------+ + | Care Hotel Recreational Facilities Manager Name | Role | Phone | [...] | | | | 2007 | | [address] | | | | | | [phone] | | | +--------+ + + + [...]
--- OUTSIDE RECORDS SUMMARY | ~2019-07-28 | XMS | Encounter Summary ---
Demographics + + + | Address | [address] | | | [place] [address] | + + + | Home Phone [...] [address] | | | | | [address] | | + + + + + | Mechelle Vidal | ECON | [place] | | | | | [address] | | + + + + + Care Team Providers + +------+ + | Care Hand Cigar Maker Name | Role | Phone | [...] | | | | 2007 | | [address] | | | | | | [phone] | | | +--------+ + + + [...]
--- OUTSIDE RECORDS SUMMARY | ~2019-07-28 | XMS | Encounter Summary ---
Demographics + + + | Address | [address] | | | [place] [address] | + + + | Home Phone [...] [address] | | | | | [address] | | + + + + + | Mechelle Vidal | ECON | [place] | | | | | [address] | | + + + + + Care Team Providers + +------+ + | Care Shipping Point Inspector Name | Role | Phone | + [...] | | | | 2009 | | [address] | | | | | | [phone] | | | +--------+ + + + [...]
--- OUTSIDE RECORDS SUMMARY | ~2019-07-28 | XMS | Encounter Summary ---
Demographics + + + | Address | [address] | | | [place] [address] | + + + | Home Phone | | + + + | Preferred Language | Unknown | + + + | Marital Status | | + + + | Rastafarian Affiliation | 1001 | + + + | Race | Unknown | + + + | Ethnic Group | Unknown | + + + Author + + + | Author | [facility] | | | and [place] | + + + | Organization | [facility] | | | [...] [address] | | | | | [address] | | + + + + + | Mechelle Vidal | ECON | [place] | | | | | [address] | | + + + + + Care Team Providers + +------+ + | Care Calender Supervisor Name | Role | Phone | + +------+ + PCP | Unavailable | + +------+ + Encounter Details +--------+ + + + + | Date | Type | Department | Care Team | Description | +--------+ + + + + | 10/11/ | Hospital | [facility] | Timoteo Toribio, | | | 2011 - | Encounter | MED CTR CANCER | [place] [address] [address] [facility] | | | | | [place] [address] | [place] | | | / | | [place], [place] | [address] | | | 2011 | | [address] | [phone] | | | | | [phone] | | | +--------+ + + + [...] given today. [facility] [place] [place] [facility] further followup. Approximately 20 minutes was spent with this patient, more than 50% of which was spent in d iscussion. DICTATED BY: Timoteo Toribio MD Radiation Oncology JOB #: [id number] EXT JOB #:[id number] EDITED: 10/16/2011 07:44 <Electronically Signed by Timoteo Toribio MD> 10/22/11 2259 documented in this encounter Plan of Treatment Not on filedocumented as of this encounter Visit Diagnoses Not on filedocumented in this encounter"
--- OUTSIDE RECORDS SUMMARY | ~2019-07-28 | XMS | Encounter Summary ---
Demographics + + + | Address | [address] | | | [place] [address] | + + + | Home Phone [...] [address] | | | | | [address] | | + + + + + | Mechelle Vidal | ECON | [place] | | | | | [address] | | + + + + + Care Team Providers + +------+ + | Care Applications Support Specialist Name | Role | Phone [...] | | | | 2008 | | [address] | | | | | | [phone] | | | +--------+ + + + [...]
--- OUTSIDE RECORDS SUMMARY | ~2019-07-28 | XMS | Encounter Summary ---
Demographics + + + | Address | [address] | | | [place] [address] | + + + | Home Phone [...] + | Author | [facility] | | | and [place]ana | + + + | Organization | [facility] | | [...] [address] | | | | | [address] | | + + + + + | Mechelle Vidal | ECON | [place] | | | | | [address] | | + + + + + Care Team Providers + +------+ + | Care Nitroglycerin Distributor Name | Role | Phone | + [...] | | | | 2005 | | [phone] | | | | | | [phone] | | | +--------+ + + + [...]
--- OUTSIDE RECORDS SUMMARY | ~2019-07-28 | XMS | Encounter Summary ---
Demographics + + + | Address | [address] | | | [place] [address] | + + + | Home Phone | | + + + | Preferred Language | Unknown | + + + | Marital Status | | + + + | [employer] Affiliation | 1001 | + + + | Race | Unknown | + + + | Ethnic Group | Unknown | + + + Author + + + | Author | [facility] | | | and Jorgeana | + + + | Organization | [facility] | | | [...] [address] | | | | | [address] | | + + + + + | Mechelle Vidal | ECON | [place] | | | | | [address] | | + + + + + Care Team Providers + +------+ + | Care Medical Supervisor Name | Role | Phone | [...] | | | | 2003 | | [phone] | | | | | | [phone] | | | +--------+ + + + [...]
--- OUTSIDE RECORDS SUMMARY | ~2019-07-28 | XMS | Encounter Summary ---
Demographics + + + | Address | [address] | | | [place] [address] | + + + | Home Phone [...] [address] | | | | | [address] | | + + + + + | Mechelle Vidal | ECON | [place] | | | | | [address] | | + + + + + Care Team Providers + +------+ + | Care Rn Appeals Name | Role | Phone | + [...] | | | | 2001 | | [address] | | | | | | [phone] | | | +--------+ + + + [...]
--- OUTSIDE RECORDS SUMMARY | ~2019-07-28 | XMS | Encounter Summary ---
Demographics + + + | Address | [address] | | | [place] [address] | + + + | Home Phone [...] [address] | | | | | [address] | | + + + + + | Mechelle Vidal | ECON | [place] | | | | | [address] | | + + + + + Care Team Providers + +------+ + | Care Mat Machine Operator Name | Role | Phone | + +------+ + PCP | Unavailable | + +------+ + Encounter Details +--------+ + + + + | Date | Type | Department | Care Team | Description | +--------+ + + + + | 04/10/ | Hospital | [facility] | Timoteo Toribio, | | | 2011 - | Encounter | MED CTR CANCER | [place] [address] | | | | | [place] [address] | [place] | | | 04/19/ | | [place], [place] | [address] | | | 2011 | | [address] | [phone] | | | | | [phone] | | | +--------+ + + + [...] tend erness. He continues to work a [employer] every day. PHYSICAL EXAMINATION VITAL SIGNS: Weight [...] Bassam Cristina MD Radiation Oncology JOB #: [id number] [id number] JOB #:[id number] cc: MD Alia Loza MD Spencer N. Ashton, MD <Electronically Signed by Bassam Cristina MD> 04/10/12 1458 documented in this encounter Plan of Treatment Not on filedocumented as of this encounter Visit Diagnoses Not on filedocumented in this encounter"
--- OUTSIDE RECORDS SUMMARY | ~2019-07-28 | XMS | Encounter Summary ---
Demographics + + + | Address | [address] | | | [place] [address] | + + + | Home Phone [...] [address] | | | | | [address] | | + + + + + | Mechelle Vidal | ECON | [place] | | | | | [address] | | + + + + + Care Team Providers + +------+ + | Care Braid Cutter Name | Role | Phone | [...] | | | | 2009 | | [address] | | | | | | [phone] | | | +--------+ + + + [...]
--- OUTSIDE RECORDS SUMMARY | ~2019-07-28 | XMS | Encounter Summary ---
Demographics + + + | Address | [address] | | | [place] [address] | + + + | Home Phone [...] [address] | | | | | [address] | | + + + + + | Mechelle Vidal | ECON | [place] | | | | | [address] | | + + + + + Care Team Providers + +------+ + | Care Color Grinder Name | Role | Phone | + +------+ + PCP | Unavailable | + +------+ + Encounter Details +--------+ + + + + | Date | Type | Department | Care Team | Description | +--------+ + + + + | 08/10/ | Hospital | [facility] | | | | 2004 - | Encounter | MED CTR GENERIC OP | | | | | | CONV DEPT [address] | | | | 11/08/ | | [place], | | | | 2005 | | [place] [address] | | | | | | [phone] | | | +--------+ + + + [...]
--- OUTSIDE RECORDS SUMMARY | ~2019-07-28 | XMS | Encounter Summary ---
Demographics + + + | Address | [address] | | | [place] [address] | + + + | Home Phone [...] [address] | | | | | [address] | | + + + + + | Mechelle Vidal | ECON | [place] | | | | | [address] | | + + + + + Care Team Providers + +------+ + | Care Front Edger Name | Role | Phone | + +------+ + PCP | Unavailable | + +------+ + Encounter Details +--------+ + + + + | Date | Type | Department | Care Team | Description | +--------+ + + + + | 05/11/ | Hospital [facility] | | | | 2004 - | Encounter | MED CTR GENERIC OP | | | | | | CONV DEPT [address] | | | | 08/09/ | | [place], | | | | 2004 | | [place] [address] | | | | | | [phone] | | | +--------+ + + + [...]
--- OUTSIDE RECORDS SUMMARY | ~2019-07-28 | XMS | Encounter Summary ---
Demographics + + + | Address | [address] | | | [place] [address] | + + + | Home Phone [...] [address] | | | | | [address] | | + + + + + | Mechelle Vidal | ECON | [place] | | | | | [address] | | + + + + + Care Team Providers + +------+ + | Care Practice Billing Associate Name | Role | Phone | + +------+ + PCP | Unavailable | + +------+ + Encounter Details +--------+ + + + + | Date | Type | Department | Care Team | Description | +--------+ + + + + | 10/21/ | Hospital | [facility] | | | | 2001 | Encounter | MED CTR XRAY [address] | | | | | | [place] | | | | | | [place] [address] | | | | | | [phone] | | | +--------+ + + + [...]
--- OUTSIDE RECORDS SUMMARY | ~2019-07-28 | XMS | Encounter Summary ---
Demographics + + + | Address | [address] | | | [place] [address] | + + + | Home Phone [...] [address] | | | | | [address] | | + + + + + | Mechelle Vidal | ECON | [place] | | | | | [address] | | + + + + + Care Team Providers + +------+ + | Care Carpenter Mold Name | Role | Phone | + [...] | | | | 2002 | | [address] | | | | | | [phone] | | | +--------+ + + + [...]
--- OUTSIDE RECORDS SUMMARY | ~2019-07-28 | XMS | Encounter Summary ---
Demographics + + + | Address | [address] | | | [place] [address] | + + + | Home Phone [...] [address] | | | | | [address] | | + + + + + | Mechelle Vidal | ECON | [place] | | | | | [address] | | + + + + + Care Team Providers + +------+ + | Care Military Professional Name | Role | Phone | [...] | | | | 2007 | | [address] | | | | | | [phone] | | | +--------+ + + + [...]
--- OUTSIDE RECORDS SUMMARY | ~2019-07-28 | XMS | Encounter Summary ---
Demographics + + + | Address | [address] | | | [place] [address] | + + + | Home Phone [...] [address] | | | | | [address] | | + + + + + | Mechelle Vidal | ECON | [place] | | | | | [address] | | + + + + + Care Team Providers + +------+ + | Care Bag Hanger Name | Role | Phone | + [...] | | | | 2005 | | [address] | | | | | | [phone] | | | +--------+ + + + [...]
--- OUTSIDE RECORDS SUMMARY | ~2019-07-28 | XMS | Encounter Summary ---
Demographics + + + | Address | [address] | | | [place] [address] | + + + | Home Phone [...] [address] | | | | | [address] | | + + + + + | Mechelle Vidal | ECON | [place] | | | | | [address] | | + + + + + Care Team Providers + +------+ + | Care Dealership Manager Name | Role | Phone | [...] | | | | 2003 | | [address] | | | | | | [phone] | | | +--------+ + + + [...]
--- OUTSIDE RECORDS SUMMARY | ~2019-07-28 | XMS | Encounter Summary ---
Demographics + + + | Address | [address] | | | [place] [address] | + + + | Home Phone [...] [address] | | | | | [address] | | + + + + + | Mechelle Vidal | ECON | [place] | | | | | [address] | | + + + + + Care Team Providers + +------+ + | Care Scuba Diving Instructor Name | Role | Phone | [...] | | | | 2006 | | [address] | | | | | | [phone] | | | +--------+ + + + [...]
--- OUTSIDE RECORDS SUMMARY | ~2019-07-28 | XMS | Encounter Summary ---
Demographics + + + | Address | [address] | | | [place] [address] | + + + | Home Phone [...] [address] | | | | | [address] | | + + + + + | Mechelle Vidal | ECON | [place] | | | | | [address] | | + + + + + Care Team Providers + +------+ + | Care Wildlife Removal Specialist Name | Role | Phone | [...] | | | | 2007 | | [address] | | | | | | [phone] | | | +--------+ + + + [...]
--- OUTSIDE RECORDS SUMMARY | 2019-07-28 09:20 | XMS ---
PreManage Notification: CHRIS SCHWARTZ Security Caterer Helper Events No recent Security Events currently on file CRITERIA MET - [facility] - 2 Visits in 30 Days CARE PROVIDERS There are no care providers on record at this time. [facility] has no Care Guidelines for this patient. [place] VISIT COUNT (12 MO.) [address] [facility] TOTAL 3 NOTE: Visits indicate total known visits. ED/C VISIT TRACKING (12 MO.) 07/28/2019 09:15 [facility] [place] TYPE: Emergency COMPLAINT: - URINE PROBLEM 07/27/2019 18:13 [facility] [place] TYPE: Emergency COMPLAINT: - BLOOD IN URINE 07/25/2019 15:50 [facility] [place] TYPE: Emergency COMPLAINT: - DR VAZQUEZ REFER INPATIENT VISIT TRACKING (12 MO.) No inpatient visits to display in this time frame [email or web address]
== END 2019-07-28 11:08 | disposition home or self-care (01) ==
LOC: ED 09:14
DX: R31.9 Hematuria, unspecified (principal); I12.9 Hypertensive chronic kidney disease with stage 1 through stage 4 chronic kidney disease, or unspecified chronic kidney disease; N18.4 Chronic kidney disease, stage 4 (severe); Z79.899 Other long term (current) drug therapy; Z85.46 Personal history of malignant neoplasm of prostate
CPT/HCPCS: 81001; 85025; 85610; 85730; 99283

== ENCOUNTER 2020-02-22 10:50 | Emergency (ER) | payer MEDICARE, OTHER ==
[~2020-02-22] VITALS: Ht 170.2 cm; Wt 70.3 kg
--- OUTSIDE RECORDS SUMMARY | ~2020-02-22 | XMS | Encounter Summary ---
Demographics + + + | Address | [address] | | | [place] [address] | + + + | Home Phone | | + + + | Preferred Language | Unknown | + + + | Marital Status | | + + + | Presybeterian Affiliation | 1001 | + + + | Race | Unknown | + + + | Ethnic Group | Unknown | + + + Author + + + | Author | [facility] | | | and [place] | + + + | Organization | [facility] | | [...] [address] | | | | | [address] | | + + + + + | Mechelle Vidal | ECON | [place] | | | | | [address] | | + + + + + Care Team Providers + +------+ + | Care Appliance Service Technician Name | Role | Phone | + +------+ + PCP | Unavailable | + +------+ + Encounter Details +--------+ + + + + | Date | Type | Department | Care Team | Description | +--------+ + + + + | 11/15/ | Hospital | [facility] | | | | 2005 - | Encounter | MED CTR GENERIC OP | | | | | | CONV DEPT [address] | | | | 11/17/ | | [place], | | | | 2005 | | [place] [address] | | | | | | [phone] | | | +--------+ + + + [...] on file | | + + + documented as of this encounter Plan of Treatment Not on filedocumented as of this encounter Visit Diagnoses Not on filedocumented in this encounter"
--- OUTSIDE RECORDS SUMMARY | ~2020-02-22 | XMS | Encounter Summary ---
Demographics + + + | Address | [address] | | | [place] [address] | + + + | Home Phone | | + + + | Preferred Language | Unknown | + + + | Marital Status | | + + + | Scientology Affiliation | 1001 | + + + | Race | Unknown | + + + | Ethnic Group | Unknown | + + + Author + + + | Author | [facility] | | | and [place] | + + + | Organization | [facility] | | | and [...] [address] | | | | | [address] | | + + + + + | Mechelle Vidal | ECON | [place] | | | | | [address] | | + + + + + Care Team Providers + +------+ + | Care Teasel Gig Operator Name | Role | Phone | [...] | | | | 2006 | | [address] | | | | | | [phone] | | | +--------+ + + + [...]
--- OUTSIDE RECORDS SUMMARY | ~2020-02-22 | XMS | Encounter Summary ---
Demographics + + + | Address | [address] | | | [place] [address] | + + + | Home Phone | | + + + | Preferred Language | Unknown | + + + | Marital Status | | + + + | Taoist Affiliation | 1001 | + + + | Race | Unknown | + + + | Ethnic Group | Unknown | + + + Author + + + | Author | [facility] | | | and [place] | + + + | Organization | [facility] | | | and [...] [address] | | | | | [address] | | + + + + + | Mechelle Vidal | ECON | [place] | | | | | [address] | | + + + + + Care Team Providers + +------+ + | Care Surgical Instrument Technician Name | Role | Phone | + +------+ + PCP | Unavailable | + +------+ + Encounter Details +--------+ + + + + | Date | Type | Department | Care Team | Description | +--------+ + + + + | 04/12/ | Hospital | [facility] | Timoteo Toribio, | | | 2010 - | Encounter | MED CTR CANCER | [place] [address] | | | | | [place] [address] | [place], [place] | | | 04/19/ | | [place], [place] | [address] | | | 2010 | | [address] | [phone] | | | | | [phone] | | | +--------+ + + + [...] encounter Progress Notes Timoteo Toribio MD - 04/12/2011 2:17 AM PDTDATE: 04/12/2011 RADIATION ONCOLOGY FOLLOWUP NOTE DIAGNOSIS: Prostate adenocarcinoma, T3N0M0, [place] 3+3=6. FOLLOWUP NOTE: Mr. Akhil Mckeon is a 76-year-old gentleman with a history of a Gleaso n 6 adenocarcinoma of the prostate that was treated with definitive radiotherapy, receiving 6840 cGy, completing those treatments back in 2001. The patient did have a PSA failure in 2004 and was treated with long-term Lupron therapy, receiving his last injection back in . The patient returns today for regularly scheduled followup. The patient states that he is doing very well with no new complaints or concerns. The patient denies any unusual b bola aches or pains. States he has a good energy level. Appetite is good. He denies any diar marlyn, constipation, or blood in his stools. He states that his urinary function has been st able with an AUA score of 10 out of a possible 35 and does get up 2 to 3 times per night to urinate. Overall, he is tolerating these symptoms well. PHYSICAL EXAMINATION VITAL SIGNS: Blood pressure 134/56, pulse of 80, weight 73.2 kg. GENERAL: The patient is awake, alert, and oriented, in no apparent distress. ABDOMEN: Soft, nontender, nondistended. RECTAL: Sphincter tone was normal. Prostate was smooth and flat without nodularity. LABS: Serum PSA from 04/04/2011 was 4, which is up from 0.26 in 09/2010. Upon review of t he patient's previous PSA blood tests, the PSA has tended to fluctuate when he has been off hormonal therapy. ASSESSMENT: Mr. Akhil Mckeon is a 76-year-old gentleman with a history of adenocarcin haley of the prostate treated with definitive radiotherapy 9 years ago , who has been on long -term hormonal treatment secondary to his PSA failure. The patient has never developed know n metastatic disease, however when he does come off hormones, the PSA does seem to worsen. The patient thus states he wants to hold off on restarting the hormone therapy, as he has h eard this can have deleterious cardiac effects. I did state that we would like to see him back in 3 months for repeat PSA and blood tests at that time. The patient was agreeable wi th this plan. DICTATED BY: Timoteo Toribio MD Radiation Oncology JOB #: [id number] EXT JOB #:[id number] <Electronicall y Signed by Timoteo Toribio MD> 05/10/11 1600 documented in this encounter Plan of Treatment Not on filedocumented as of this encounter Visit Diagnoses Not on filedocumented in this encounter"
--- OUTSIDE RECORDS SUMMARY | ~2020-02-22 | XMS | Encounter Summary ---
Demographics + + + | Address | [address] | | | [place] [address] | + + + | Home Phone | | + + + | Preferred Language | Unknown | + + + | Marital Status | | + + + | Temple Affiliation | 1001 | + + + | Race | Unknown | + + + | Ethnic Group | Unknown | + + + Author + + + | Author | [facility] | | | and J[place] | + + + | Organization | [facility] | | | and [...] [address] | | | | | [address] | | + + + + + | Mechelle Vidal | ECON | [place] | | | | | [address] | | + + + + + Care Team Providers + +------+ + | Care Lay Health Advocate Name | Role | Phone | + [...] | | | | 2006 | | [address] | | | | | | [phone] | | | +--------+ + + + [...]
--- OUTSIDE RECORDS SUMMARY | ~2020-02-22 | XMS | Encounter Summary ---
Demographics + + + | Address | [address] | | | [place] [address] | + + + | Home Phone | | + + + | Preferred Language | Unknown | + + + | Marital Status | | + + + | Advent Affiliation | 1001 | + + + [...] + + + + + | Alber Schwartz | ECON | [address] | | | | | [place] [address] [place] | | | | | [address] | | + + + + + | Mechelle Vidal | ECON | [place] | | | | | [address] | | + + + + + Care Team Providers + +------+ + | Care Assayer Helper Name | Role | Phone | + +------+ + PCP | Unavailable | + +------+ + Encounter Details +--------+ + + + + | Date | Type | Department | Care Team | Description | +--------+ + + + + | 04/10/ | Hospital | [facility] | Timoteo Toribio, | | | 2011 - | Encounter | MED CTR CANCER | [place] [address] | | | | | [place] [address] | [place] | | | 04/19/ | | [place], [place] | [address] | | | 2011 | | [address] | [phone] | | | | | [phone] | | | +--------+ + + + [...] documented as of this encounter Progress Notes Bassam Cristina MD - 04/10/2012 2:42 AM PDTDATE: 04/10/2012 RADIATION ONCOLOGY FOLLOWUP NOTE IDENTIFICATION: Mr. Schwartz is a 76-year-old gentleman with adenocarcinoma of the prosta te, with b iochemical failure. He received 1640 cGy to the prostate, completing his radiati on in 05/2002. In 2010, his PSA went up to 5.28. He was started on Trelstar, and his PS A has dropped to 0.62 in 09/2011 , and 0.433 in 12/2011. His PSA performed this last week i s up very slightly at 0.468. Mr. Schwartz is generally feeling well. He has nocturia usually twice per night. No diffic ulty with his bowels. His urination is slightly slower, but has no trouble starting his str eam. He has mild hot flashes on the Trelstar. He has no complaints of any bone pain or tend erness. He continues to work a [email or web address] every day. PHYSICAL EXAMINATION VITAL SIGNS: Weight 70.8 kg, blood pressure 136/76, pulse 68, temperature 36.7, respiration s 16. PERFORMANCE STATUS: 0. SKIN: Clear. EXTREMITIES: No edema. No tenderness to palpation of the spine, pelvis or extremities. RECTAL: A smooth prostatic fossa, with no nodularity or evidence of disease. ASSESSMENT AND PLAN WE WILL GIVE MR. SCHWARTZ ANOTHER INJECTION OF TRELSTAR 11.25 MG TODAY. He will return for followup in [address] Toribio and reevaluate him, if we will continue the hormone therapy. DICTATED BY: Bassam Cristina MD Radiation Oncology JOB #: [id number] EXT JOB #:[id number] cc: MD Alia Loza MD Spencer N. Ashton, MD <Electronically Signed by Bassam Cristina MD> 04/10/12 1458 documented in this encounter Plan of Treatment Not on filedocumented as of this encounter Visit Diagnoses Not on filedocumented in this encounter"
--- OUTSIDE RECORDS SUMMARY | ~2020-02-22 | XMS | Encounter Summary ---
Demographics + + + | Address | [address] | | | [place] [address] | + + + | Home Phone | | + + + | Preferred Language | Unknown | + + + | Marital Status | | + + + | Lutheran Affiliation | 1001 | + + + [...] [address] | | | | | [address] | | + + + + + | Mechelle Vidal | ECON | [place] | | | | | [address] | | + + + + + Care Team Providers + +------+ + | Care Talk Show Host Name | Role | Phone | + +------+ + PCP | Unavailable | + +------+ + Encounter Details +--------+ + + + + | Date | Type | Department | Care Team | Description | +--------+ + + + + | 08/10/ | Hospital | [facility] | | | | 2005 - | Encounter | MED CTR CANCER | | | | | | CENTER [address] | | | | 08/19/ | | [place] | | | | 2005 | | [address] | | | | | | [phone] | | | +--------+ + + + [...]
--- OUTSIDE RECORDS SUMMARY | ~2020-02-22 | XMS | Encounter Summary ---
Demographics + + + | Address | [address] | | | [place] [address] | + + + | Home Phone | | + + + | Preferred Language | Unknown | + + + | Marital Status | | + + + | Mandaen Affiliation | 1001 | + + + | Race | Unknown | + + + | Ethnic Group | Unknown | + + + Author + + + | Author | [facility] | | | and [place] | + + + | Organization | [facility] | | [...] [address] | | | | | [address] | | + + + + + | Mechelle Vidal | ECON | [place] | | | | | [address] | | + + + + + Care Team Providers + +------+ + | Care Route Delivery Driver Name | Role | Phone | + +------+ + PCP | Unavailable | + +------+ + Encounter Details +--------+ + + + + | Date | Type | Department | Care Team | Description | +--------+ + + + + | 05/09/ | Hospital | [facility] | | | | 2005 - | Encounter | MED CTR CANCER | | | | | | CENTER [address] | | | | 08/07/ | | [place] | | | | 2005 | | [address] | | | | | | [phone] | | | +--------+ + + + [...]
--- OUTSIDE RECORDS SUMMARY | ~2020-02-22 | XMS | Encounter Summary ---
Demographics + + + | Address | [address] | | | [place] [address] | + + + | Home Phone | | + + + | Preferred Language | Unknown | + + + | Marital Status | | + + + | Jain Affiliation | 1001 | + + + | Race | Unknown | + + + | Ethnic Group | Unknown | + + + Author + + + | Author | [facility] | | | and [place] | + + + | Organization | [facility] | | | [...] [address] | | | | | [address] | | + + + + + | Mechelle Vidal | ECON | [place] | | | | | [address] | | + + + + + Care Team Providers + +------+ + | Care Storm Door Maker Name | Role | Phone | + +------+ + PCP | Unavailable | + +------+ + Encounter Details +--------+ + + + + | Date | Type | Department | Care Team | Description | +--------+ + + + + | 02/26/ | Hospital | [facility] | | | | 2006 - | Encounter | MED CTR CANCER | | | | | | CENTER [address] | | | | 03/19/ | | [place] | | | | 2006 | | [address] | | | | | | [phone] | | | +--------+ + + + [...]
--- OUTSIDE RECORDS SUMMARY | ~2020-02-22 | XMS | Encounter Summary ---
Demographics + + + | Address | [address] | | | [place] [address] | + + + | Home Phone | | + + + | Preferred Language | Unknown | + + + | Marital Status | | + + + | Caodaism Affiliation | 1001 | + + + [...] [address] | | | | | [address] | | + + + + + | Mechelle Vidal | ECON | [place] | | | | | [address] | | + + + + + Care Team Providers + +------+ + | Care Dater Assembler Name | Role | Phone | + +------+ + PCP | Unavailable | + +------+ + Encounter Details +--------+ + + + + | Date | Type | Department | Care Team | Description | +--------+ + + + + | 10/13/ | Hospital | [facility] | | | | 2009 - | Encounter | MED CTR CANCER | | | | | | CENTER [address] | | | | 10/17/ | | [place] | | | | 2009 | | [address] | | | | | | [phone] | | | +--------+ + + + [...]
--- OUTSIDE RECORDS SUMMARY | ~2020-02-22 | XMS | Encounter Summary ---
Demographics + + + | Address | [address] | | | [place] [address] | + + + | Home Phone [...] [address] | | | | | [address] | | + + + + + | Mechelle Vidal | ECON | [place] | | | | | [address] | | + + + + + Care Team Providers + +------+ + | Care Construction Skills Teacher Name | Role | Phone | + +------+ + PCP | Unavailable | + +------+ + Encounter Details +--------+ + + + + | Date | Type | Department | Care Team | Description | +--------+ + + + + | 08/10/ | Hospital | [facility] | | | | 2004 - | Encounter | MED CTR GENERIC OP | | | | | | CONV DEPT [address] | | | | 11/08/ | | [place], | | | | 2005 | | [place] [address] | | | | | | [phone] | | | +--------+ + + + [...]
--- OUTSIDE RECORDS SUMMARY | ~2020-02-22 | XMS | Encounter Summary ---
Demographics + + + | Address | [address] | | | [place] [address] | + + + | Home Phone [...] [address] | | | | | [address] | | + + + + + | Mechelle Vidal | ECON | [place] | | | | | [address] | | + + + + + Care Team Providers + +------+ + | Care Electroslag Welding Machine Operator Name | Role | Phone | [...] | | | | 2007 | | [address] | | | | | | [phone] | | | +--------+ + + + [...]
--- OUTSIDE RECORDS SUMMARY | ~2020-02-22 | XMS | Encounter Summary ---
Demographics + + + | Address | [address] | | | [place] [address] | + + + | Home Phone | | + + + | Preferred Language | Unknown | + + + | Marital Status | | + + + | Judaism Affiliation | 1001 | + + + | Race | Unknown | + + + | Ethnic Group | Unknown | + + + Author + + + | Author | [facility] | | | and Jorgeana | + + + | Organization | [facility] | | | [...] [address] | | | | | [address] | | + + + + + | Mechelle Vidal | ECON | [place] | | | | | [address] | | + + + + + Care Team Providers + +------+ + | Care Pay Station Attendant Name | Role | Phone | + +------+ + PCP | Unavailable | + +------+ + Encounter Details +--------+ + + + + | Date | Type | Department | Care Team | Description | +--------+ + + + + | 07/08/ | Hospital | [facility] | | | | 2008 - | Encounter | MED CTR CANCER | | | | | | CENTER [address] | | | | 07/19/ | | [place] | | | | 2008 | | [address] | | | | | | [phone] | | | +--------+ + + + [...]
--- OUTSIDE RECORDS SUMMARY | ~2020-02-22 | XMS | Encounter Summary ---
Demographics + + + | Address | [address] | | | [place] [address] | + + + | Home Phone | | + + + | Preferred Language | Unknown | + + + | Marital Status | | + + + | Tenriism Affiliation | 1001 | + + + | Race | Unknown | + + + | Ethnic Group | Unknown | + + + Author + + + | Author | [facility] | | | and Jorgeana | + + + | Organization | [facility] | | [...] [address] | | | | | [address] | | + + + + + | Mechelle Vidal | ECON | [place] | | | | | [address] | | + + + + + Care Team Providers + +------+ + | Care Hog Sawyer Name | Role | Phone | + +------+ + PCP | Unavailable | + +------+ + Encounter Details +--------+ + + + + | Date | Type | Department | Care Team | Description | +--------+ + + + + | 06/28/ | Hospital | [facility] | Timoteo Toribio, | | | 2010 - | Encounter | MED CTR CANCER | [place] [address] | | | | | [place] [address] | [place] | | | 07/19/ | | [place], [place] | [address] | | | 2010 | | [address] | [phone] | | | | | [phone] | | | +--------+ + + + [...] initially diagnosed as a T3 N0 M0, [place] 3 + 3 = 6. FOLLOWUP NOTE: [...] Timoteo Toribio MD Radiation Oncology JOB #: [id number] EXT JOB #:[id number] cc: MD Alia Loza MD <Electronically Signed by Timoteo Toribio MD> 07/15/11 1100 documented in this encounter Plan of Treatment Not on filedocumented as of this encounter Visit Diagnoses Not on filedocumented in this encounter"
--- OUTSIDE RECORDS SUMMARY | ~2020-02-22 | XMS | Encounter Summary ---
Demographics + + + | Address | [address] | | | [place] [address] | + + + | Home Phone | | + + + | Preferred Language | Unknown | + + + | Marital Status | | + + + | Mu-Ism Affiliation | 1001 | + + + | Race | Unknown | + + + | Ethnic Group | Unknown | + + + Author + + + | Author | [facility] | | | and Jorgeana | + + + | Organization | [facility] | | | [...] [place] | | | | | [address] | | + + + + + | Mechelle Vidal | ECON | [place] | | | | | [address] | | + + + + + Care Team Providers + +------+ + | Care Director Life Insurance Name | Role | Phone | + +------+ + | Naeem Nair MD | PCP | | + +------+ + Encounter Details +--------+ + + + + | Date | Type | Department | Care Team | Description | +--------+ + + + + | 07/10/ | Hospital | [facility] | Catarino Timoteo N, | | | 2011 - | Encounter | MED CTR CANCER | [place] [address] | | | | | [place] [address] | [place] | | | 07/19/ | | [place] | [address] | | | 2011 | | [address] | [phone] | | | | | [phone] | | | +--------+ + + + [...] Testing | 168 - 758 ng/dL | [facility] | | | e | performed on the [facility] | [facility] | | | | [facility] | | MEDICAL | | | [...] | + + + + + | [facility] | [address] | [place] | [phone] | | [facility] | | [address] | | | - LABORATORY | | | | + + + + + | [facility] | [address] | [place], [place] | | | [facility] | | [address] | | | - LABORATORY | | | | + + + + + documented in this encounter Visit Diagnoses Not on filedocumented in this encounter"
--- OUTSIDE RECORDS SUMMARY | ~2020-02-22 | XMS | Encounter Summary ---
Demographics + + + | Address | [address] | | | [place] [address] | + + + | Home Phone | | + + + | Preferred Language | Unknown | + + + | Marital Status | | + + + | Yazidi Affiliation | 1001 | + + + | Race | Unknown | + + + | Ethnic Group | Unknown | + + + Author + + + | Author | [facility] | | | and Jorgeana | + + + | Organization | [facility] [...] [address] | | | | | [address] | | + + + + + | Mechelle Vidal | ECON | [place] | | | | | [address] | | + + + + + Care Team Providers + +------+ + | Care Director Corporate Security Name | Role | Phone | + [...] | | | | 2009 | | [address] | | | | | | [phone] | | | +--------+ + + + [...]
--- OUTSIDE RECORDS SUMMARY | ~2020-02-22 | XMS | Encounter Summary ---
Demographics + + + | Address | [address] | | | [place] [address] | + + + | Home Phone | | + + + | Preferred Language | Unknown | + + + | Marital Status | | + + + | Methodist Affiliation | 1001 | + + + [...] [address] | | | | | [address] | | + + + + + | Mechelle Vidal | ECON | [place] | | | | | [address] | | + + + + + Care Team Providers + +------+ + | Care Supervisor Print Line Name | Role | Phone | + [...] | | | | 2001 | | [address] | | | | | | [phone] | | | +--------+ + + + [...]
--- OUTSIDE RECORDS SUMMARY | ~2020-02-22 | XMS | Encounter Summary ---
Demographics + + + | Address | [address] | | | [place] [address] | + + + | Home Phone | | + + + | Preferred Language | Unknown | + + + | Marital Status | | + + + | Catholic Affiliation | 1001 | + + + [...] [address] | | | | | [address] | | + + + + + | Mechelle Vidal | ECON | [place] | | | | | [address] | | + + + + + Care Team Providers + +------+ + | Care Field Service Technician Poultry Name | Role | Phone | + [...] | | | | 2001 | | [address] | | | | | | [phone] | | | +--------+ + + + [...]
--- OUTSIDE RECORDS SUMMARY | ~2020-02-22 | XMS | Encounter Summary ---
Demographics + + + | Address | [address] | | | [place] [address] | + + + | Home Phone [...] [place] | | | | | [address] | | + + + + + | Mechelle Vidal | ECON | [place] | | | | | [address] | | + + + + + Care Team Providers + +------+ + | Care College [employer] Dean Name | Role | Phone | + +------+ + | Naeem Nair MD | PCP | | + +------+ + Encounter Details +--------+ + + + + | Date | Type | Department | Care Team | Description | +--------+ + + + + | 10/16/ | Hospital | [facility] | CatarinoTimoteo, | | | 2012 - | Encounter | MED CTR CANCER | [address] | | | | | [place] [address] | [place] | | | 10/17/ | | [place] | [address] | | | 2012 | | [address] | [phone] | | | | | [phone] | | | +--------+ + + + [...]
--- OUTSIDE RECORDS SUMMARY | ~2020-02-22 | XMS | Encounter Summary ---
Demographics + + + | Address | [address] | | | [place] [address] | + + + | Home Phone [...] [address] | | | | | [address] | | + + + + + | Mechelle Vidal | ECON | [place] | | | | | [address] | | + + + + + Care Team Providers + +------+ + | Care Director Of Application Development Name | Role | Phone | + [...] | | | | 2002 | | [address] | | | | | | [phone] | | | +--------+ + + + [...]
--- OUTSIDE RECORDS SUMMARY | ~2020-02-22 | XMS | Encounter Summary ---
Demographics + + + | Address | [address] | | | [place] [address] | + + + | Home Phone [...] [address] | | | | | [address] | | + + + + + | Mechelle Vidal | ECON | [place] | | | | | [address] | | + + + + + Care Team Providers + +------+ + | Care Shaving Machine Operator Name | Role | Phone [...] | | | | 2002 | | [address] | | | | | | [phone] | | | +--------+ + + + [...]
--- OUTSIDE RECORDS SUMMARY | ~2020-02-22 | XMS | Encounter Summary ---
Demographics + + + | Address | [address] | | | [place] [address] | + + + | Home Phone | | + + + | Preferred Language | Unknown | + + + | Marital Status | | + + + | Yarsanism Affiliation | 1001 | + + + [...] [address] | | | | | [address] | | + + + + + | Mechelle Vidal | ECON | [place] | | | | | [address] | | + + + + + Care Team Providers + +------+ + | Care Dirt Supervisor Name | Role | Phone | [...] | | | | 2003 | | [address] | | | | | | [phone] | | | +--------+ + + + [...]
--- OUTSIDE RECORDS SUMMARY | ~2020-02-22 | XMS | Encounter Summary ---
Demographics + + + | Address | [address] | | | [place] [address] | + + + | Home Phone | | + + + | Preferred Language | Unknown | + + + | Marital Status | | + + + | Jew Affiliation | 1001 | + + + | Race | Unknown | + + + | Ethnic Group | Unknown | + + + Author + + + | Author | [facility] | | | and Jorgeana | + + + | Organization | [facility] | | [...] [address] | | | | | [address] | | + + + + + | Mechelle Vidal | ECON | [place] | | | | | [address] | | + + + + + Care Team Providers + +------+ + | Care Gasket Maker Name | Role | Phone | [...] | | | | 2009 | | [address] | | | | | | [phone] | | | +--------+ + + + [...]
--- OUTSIDE RECORDS SUMMARY | ~2020-02-22 | XMS | Encounter Summary ---
Demographics + + + | Address | [address] | | | [place] [address] | + + + | Home Phone [...] [address] | | | | | [address] | | + + + + + | Mechelle Vidal | ECON | [place] | | | | | [address] | | + + + + + Care Team Providers + +------+ + | Care Php Website Developer Name | Role | Phone | [...] | | | | 2007 | | [address] | | | | | | [phone] | | | +--------+ + + + [...]
--- OUTSIDE RECORDS SUMMARY | ~2020-02-22 | XMS | Encounter Summary ---
Demographics + + + | Address | [address] | | | [place] [address] | + + + | Home Phone [...] | | | | | [place] [address] | | | | | [address] | | + + + + + | Mechelle Vidal | ECON | [place] | | | | | [address] | | + + + + + Care Team Providers + +------+ + | Care Hop Separator Name | Role | Phone | + +------+ + PCP | Unavailable | + +------+ + Encounter Details +--------+ + + + + | Date | Type | Department | Care Team | Description | +--------+ + + + + | 10/11/ | Hospital | [facility] | Timoteo Toribio, | | | 2011 - | Encounter | MED CTR CANCER | [place] [address] | | | | | [place] [address] | [place] | | | / | | [place], [place] | [address] | | | 2011 | | [address] | [phone] | | | | | [phone] | | | +--------+ + + + [...] up to 5.28 in May of 2011. Kiera laboy was made to restart hormonal therapy, and [...] given today. We would [place] [facility] for further followup. Approximately 20 minutes was spent with this patient, more than 50% of which was spent in d iscussion. DICTATED BY: Timoteo Toribio MD Radiation Oncology JOB #: [id number] EXT JOB #:[id number] EDITED: 10/16/2011 07:44 <Electronically Signed by Timoteo Toribio MD> 10/22/11 0665 documented in this encounter Plan of Treatment Not on filedocumented as of this encounter Visit Diagnoses Not on filedocumented in this encounter"
--- OUTSIDE RECORDS SUMMARY | ~2020-02-22 | XMS | Encounter Summary ---
Demographics + + + | Address | [address] | | | [place] [address] | + + + | Home Phone | | + + + | Preferred Language | Unknown | + + + | Marital Status | | + + + | Confucianism Affiliation | 1001 | + + + [...] [place] | | | | | [address] | | + + + + + | Mechelle Vidal | ECON | [place] | | | | | [address] | | + + + + + Care Team Providers + +------+ + | Care Warehouse Engineer Name | Role | Phone | [...] | | [place] | [place] [address] | | | | | [address] | [phone] | | | | | [phone] | | | +--------+ + + + [...] 2.49 cm AR Dec | | | [place]: 1.99 m/s2 AR Dec Time: 2107.85 ms [...] m/s Lateral E/e': 10.58 | | | Rougher For Cement: REBEKAH Authenticated by: Hipolito Cullen Report | | | Date/Time: 08-03-2017 14:15:57 | | + + + + + | Procedure Note | + + | Alex Jaimes - 04/10/2019 8:37 PM PDT Patient Name: Eileen Mckeon | | of : 1935 Performing Physician: Hipolito | | Alyse INDICATIONS------ | | -----Murmur CONCLUSIONS 1. The [...] cmLVIDd: 3.73 cmLVPWd: 1.02 cmLVOT Area: 3.12 cp0AGOG Diam: | | 1.99 cm%FS: 38.08 %EF(Teich): [...] (A-L): 15.42 ml/m2LAAs | | A2C: 12.67 pq1EGNZR A-L A2C: 30.25 mlLALs A2C: 4.50 cmLAAs A4C: 14.55 eo2XMURO | | A-L A4C: 41.62 mlLALs A4C: 4.31 cmRAAs: 13.92 ck1GPYDF A-L: 37.79 mlRAESV MOD: | | 35.28 mlRALs: 4.35 cmTAPSE: 2.49 cmAR Dec [place]: 1.99 m/s2AR Dec Time: 210.85 | | msAR maxP.62 mmHgAR PHT: 611.27 msAR Vmax: 4.20 m/Alva maxP.12 mmHgAV | | meanP.84 mmHgAV Vmax: 1.59 m/Alva Vmean: 1.14 m/Alva VTI: 34.41 cmAVA Vmax: | | 2.76 cm2AVA (VTI): 3.27 qe6RVCB Vmax: 0.00 cm2/m2AVAI (VTI): 0.00 cm2/m2LVOT | | maxP.93 mmHgLVOT meanP.33 mmHgLVSI Dopp: 47.98 ml/m2LVSV Dopp: 112.76 | | mlLVOT Vmax: 1.40 m/sLVOT Vmean: 1.11 m/sLVOT VTI: 36.07 cmMV A Jerry: 0.91 m/sMV | | DecT: 209.15 msMV E Jerry: 0.82 m/sMV E/A Ratio: 0.90MV PHT: 60.65 msMVA By PHT: | | 3.62 ia9Zipvbo e': 0.06 m/sSeptal E/e': 12.63Lateral e': 0.07 m/sLateral E/e': | | 10.58 Rougher For Cement: REBEKAHAuthenticated by: Hipolito Wooten Date/Time: 08-03-2017 | [...] | |TAPSE: 2.49 cm | |AR Dec [place]: 1.99 m/s2 | |AR Dec Time: 2107.85 [...] | |Lateral E/e': 10.58 | | | |Rougher For Cement: DBS | |Authenticated by: Hipolito Cullen | [...]
--- OUTSIDE RECORDS SUMMARY | ~2020-02-22 | XMS | Encounter Summary ---
Demographics + + + | Address | [address] | | | [place] [address] | + + + | Home Phone [...] [address] | | | | | [address] | | + + + + + | Mechelle Vidal | ECON | [place] | | | | | [address] | | + + + + + Care Team Providers + +------+ + | Care Registered Midwife Name | Role | Phone | + [...] | | | | 2007 | | [address] | | | | | | [phone] | | | +--------+ + + + [...]
--- OUTSIDE RECORDS SUMMARY | ~2020-02-22 | XMS | Encounter Summary ---
Demographics + + + | Address | [address] | | | [place] [address] | + + + | Home Phone [...] [address] | | | | | [address] | | + + + + + | Mechelle Vidal | ECON | [place] | | | | | [address] | | + + + + + Care Team Providers + +------+ + | Care Pickler Helper Name | Role | Phone | + +------+ + PCP | Unavailable | + +------+ + Encounter Details +--------+ + + + + | Date | Type | Department | Care Team | Description | +--------+ + + + + | 10/20/ | Hospital | [facility] | | | | 2004 - | Encounter | MED CTR GENERIC OP | | | | | | CONV DEPT [address] | | | | 01/18/ | | [place], | | | | 2004 | | [place] [address] | | | | | | [phone] | | | +--------+ + + + [...]
--- OUTSIDE RECORDS SUMMARY | ~2020-02-22 | XMS | Encounter Summary ---
Demographics + + + | Address | [address] | | | [place] [address] | + + + | Home Phone [...] [address] | | | | | [address] | | + + + + + | Mechelle Vidal | ECON | [place] | | | | | [address] | | + + + + + Care Team Providers + +------+ + | Care Focuser Name | Role | Phone | + +------+ + PCP | Unavailable | + +------+ + Encounter Details +--------+ + + + + | Date | Type | Department | Care Team | Description | +--------+ + + + + | 10/21/ | Hospital | [facility] | | | | 2001 | Encounter | MED CTR XRAY [address] | | | | | | [place] | | | | | | [place] [address] | | | | | | [phone] | | | +--------+ + + + [...]
--- OUTSIDE RECORDS SUMMARY | ~2020-02-22 | XMS | Encounter Summary ---
Demographics + + + | Address | [address] | | | [place] [address] | + + + | Home Phone | | + + + | Preferred Language | Unknown | + + + | Marital Status | | + + + | Jew Affiliation | 1001 | + + + | Race | Unknown | + + + | Ethnic Group | Unknown | + + + Author + + + | Author | [facility] | | | and Jorgeana | + + + | Organization | [facility] | | [...] [address] | | | | | [address] | | + + + + + | Mechelle Vidal | ECON | [place] | | | | | [address] | | + + + + + Care Team Providers + +------+ + | Care Human Services Supervisor Name | Role | Phone | + +------+ + PCP | Unavailable | + +------+ + Encounter Details +--------+ + + + + | Date | Type | Department | Care Team | Description | +--------+ + + + + | 01/09/ | Hospital | [facility] | Timoteo Toribio, | | | 2011 - | Encounter | MED CTR CANCER | [place] [address] | | | | | [place] [address] | [place] | | | 01/17/ | | [place], [place] | [address] | | | 2011 | | [address] | [phone] | | | | | [phone] | | | +--------+ + + + [...] continue to have his labs drawn in [place]. He will continue to see his other physicia ns as needed. DICTATED BY: Brianna Rodriguez MD Radiation Oncology JOB #: [id number] EXT JOB #:[id number] cc: MD Alia Loza MD Spencer N. Ashton, MD <Electronically Signed by Brianna Rodriguez MD> 01/10/12 1242 documented in this encounter Plan of Treatment Not on filedocumented as of this encounter Visit Diagnoses Not on filedocumented in this encounter"
--- OUTSIDE RECORDS SUMMARY | ~2020-02-22 | XMS | Encounter Summary ---
Demographics + + + | Address | [address] | | | [place] [address] | + + + | Home Phone [...] [address] | | | | | [address] | | + + + + + | Mechelle Vidal | ECON | [place] | | | | | [address] | | + + + + + Care Team Providers + +------+ + | Care Industrial Yard Brake Coupler Name | Role | Phone | + [...] | | | | 2008 | | [address] | | | | | | [phone] | | | +--------+ + + + [...]
--- OUTSIDE RECORDS SUMMARY | ~2020-02-22 | XMS | Clinical Summary ---
Demographics + + + | Address | [address] | | | [place] [address] | + + + | Home Phone [...] [address] | | | | | [address] | | + + + + + | Mechelle Vidal | ECON | [place] | | | | | [address] | | + + + + + Care Team Providers + +------+ + | Care Chemical Compounder Name | Role | Phone | + [...] on file | | + + + Last Filed Vital Signs Not on file Plan of Treatment + + +-------+ + | Health Maintenance | Due Date | Last | Comments | | | | Done | | + + +-------+ + | Vaccine: | | | | | Dtap/Tdap/Td (1 - | 4 | | | | Tdap) | | | | + + +-------+ + | Vaccine: Zoster (1 | | | | | of 2) | 5 | | | + + +-------+ + | Vaccine: | | | | | Pneumococcal 65+ (1 | 0 | | | | of 1 - PPSV23) | | | | + + +-------+ + | Vaccine: Influenza | | | | | (#1) | 0 | | | + + +-------+ + Results Not on filefrom Last 3 [...] +--------+ +---------+--------+ | MEDICARE | MEDICA | [id number] | 02/18/20 | [phone] | | Medica | | | RE | | 00-Pre | 5 | | re | | | PART A | | sent | | | | | | AND B | | | | | | + +--------+ +--------+ +---------+--------+ | MEDICARE | MEDICA | [id number] | 02/18/20 | [phone] | | Medica | | | RE | | 00-Pre | 5 | | re | | | PART A | | sent | | | | | | AND B | | | | | | + +--------+ +--------+ +---------+--------+ | MEDICAID [place] | MEDICA | [id number] | Effect | [phone] | | Medica [...] | Self | [birth year] | [address] | | | al/Fam | | 1935 | [phone] | [place] | | | [place] | | | 1 (Home) | [address] | | | | | | [phone] | | | | | | | 1 (Work) | | + +--------+ +--------+ + + | Akhil Mckeon | Person | Self | [birth year] | [address] | | | al/Fam | | 1935 | [phone] | [place] | | | [place] | | | [address] (Home) | [address] | + +--------+ +--------+ + + Advance Directives + + + + + | Type | Date Recorded | Patient | Explanation | | | | Ceiling Cleaner | | + + + + + | Power of | | | | | Process Improvement Engineer | | | | + + + + +"
--- OUTSIDE RECORDS SUMMARY | ~2020-02-22 | XMS | Encounter Summary ---
Demographics + + + | Address | [address] | | | [place] [address] | + + + | Home Phone [...] [place] | | | | | [address] | | + + + + + | Mechelle Vidal | ECON | [place] | | | | | [address] | | + + + + + Care Team Providers + +------+ + | Care Mobile Plant Operators Name | Role | Phone | + +------+ + | Naeem Nair MD | PCP | | + +------+ + Encounter Details +--------+ + + + + | Date | Type | Department | Care Team | Description | +--------+ + + + + | 11/27/ | Hospital | [facility] | Catarino Timoteo N, | | | 2012 - | Encounter | MED CTR CANCER | [place] [address] | | | | | [place] [address] | [place] | | | 12/17/ | | [place] | [address] | | | 2012 | | [address] | [phone] | | | | | [phone] | | | +--------+ + + + [...]
--- OUTSIDE RECORDS SUMMARY | ~2020-02-22 | XMS | Encounter Summary ---
Demographics + + + | Address | [address] | | | [place] [address] | + + + | Home Phone | | + + + | Preferred Language | Unknown | + + + | Marital Status | | + + + | Roman Catholic Affiliation | 1001 | + + + | Race | Unknown | + + + | Ethnic Group | Unknown | + + + Author + + + | Author | [facility] | | | and Jorgeana | + + + | Organization | [facility] | | | [...] [address] | | | | | [address] | | + + + + + | Mechelle Vidal | ECON | [place] | | | | | [address] | | + + + + + Care Team Providers + +------+ + | Care Leather Craftsman Name | Role | Phone | + +------+ + PCP | Unavailable | + +------+ + Encounter Details +--------+ + + + + | Date | Type | Department | Care Team | Description | +--------+ + + + + | 01/25/ | Hospital | [facility] | | | | 2004 - | Encounter | MED CTR GENERIC OP | | | | | | CONV DEPT [address] | | | | 04/25/ | | [place], | | | | 2004 | | [place] [address] | | | | | | [phone] | | | +--------+ + + + [...]
--- OUTSIDE RECORDS SUMMARY | ~2020-02-22 | XMS | Encounter Summary ---
Demographics + + + | Address | [address] | | | [place] [address] | + + + | Home Phone | | + + + | Preferred Language | Unknown | + + + | Marital Status | | + + + | Baptist Affiliation | 1001 | + + + | Race | Unknown | + + + | Ethnic Group | Unknown | + + + Author + + + | Author | [facility] | | | and Jorgeana | + + + | Organization | [facility] | | | [...] [address] | | | | | [address] | | + + + + + | Mechelle Vidal | ECON | [place] | | | | | [address] | | + + + + + Care Team Providers + +------+ + | Care Director Plans Name | Role | Phone | + +------+ + PCP | Unavailable | + +------+ + Encounter Details +--------+ + + + + | Date | Type | Department | Care Team | Description | +--------+ + + + + | 05/11/ | Hospital | [facility] | | | | 2004 - | Encounter | MED CTR GENERIC OP | | | | | | CONV DEPT [address] | | | | 08/09/ | | [place], | | | | 2004 | | [place] [address] | | | | | | [phone] | | | +--------+ + + + [...]
--- OUTSIDE RECORDS SUMMARY | ~2020-02-22 | XMS | Encounter Summary ---
Demographics + + + | Address | [address] | | | [place] [address] | + + + | Home Phone | | + + + | Preferred Language | Unknown | + + + | Marital Status | | + + + | Sabianist Affiliation | 1001 | + + + [...] [address] | | | | | [address] | | + + + + + | Mechelle Vidal | ECON | [place] | | | | | [address] | | + + + + + Care Team Providers + +------+ + | Care Disability Insurance Claim Examiner Name | Role | Phone | [...] | | | | 2010 | | [address] | | | | | | [phone] | | | +--------+ + + + [...]
--- OUTSIDE RECORDS SUMMARY | ~2020-02-22 | XMS | Encounter Summary ---
Demographics + + + | Address | [address] | | | [place] [address] | + + + | Home Phone [...] [address] | | | | | [address] | | + + + + + | Mechelle Vidal | ECON | [place] | | | | | [address] | | + + + + + Care Team Providers + +------+ + | Care Sample Body Builder Name | Role | Phone | [...] | | | | 2007 | | [address] | | | | | | [phone] | | | +--------+ + + + [...]
--- OUTSIDE RECORDS SUMMARY | ~2020-02-22 | XMS | Encounter Summary ---
Demographics + + + | Address | [address] | | | [place] [address] | + + + | Home Phone [...] [address] | | | | | [address] | | + + + + + | Mechelle Vidal | ECON | [place] | | | | | [address] | | + + + + + Care Team Providers + +------+ + | Care Cutting Machine Tender Helper Name | Role | Phone | + +------+ + PCP | Unavailable | + +------+ + Encounter Details +--------+ + + + + | Date | Type | Department | Care Team | Description | +--------+ + + + + | 11/07/ | Hospital | [facility] | | | | 2001 | Encounter | MED CTR XRAY [address] | | | | | | [place] | | | | | | [place] [address] | | | | | | [phone] | | | +--------+ + + + [...]
--- OUTSIDE RECORDS SUMMARY | ~2020-02-22 | XMS | Encounter Summary ---
Demographics + + + | Address | [address] | | | [place] [address] | + + + | Home Phone | | + + + | Preferred Language | Unknown | + + + | Marital Status | | + + + | Episcopalian Affiliation | 1001 | + + + | Race | Unknown | + + + | Ethnic Group | Unknown | + + + Author + + + | Author | [facility] | | | and Jorgeana | + + + | Organization | [facility] | | | [...] [address] | | | | | [address] | | + + + + + | Mechelle Vidal | ECON | [place] | | | | | [address] | | + + + + + Care Team Providers + +------+ + | Care Production Hand Name | Role | Phone | [...] | | | | 2003 | | [address] | | | | | | [phone] | | | +--------+ + + + [...]
--- OUTSIDE RECORDS SUMMARY | ~2020-02-22 | XMS | Encounter Summary ---
Demographics + + + | Address | [address] | | | [place] [address] | + + + | Home Phone [...] [address] | | | | | [address] | | + + + + + | Mechelle Vidal | ECON | [place] | | | | | [address] | | + + + + + Care Team Providers + +------+ + | Care Paperhanger Assistant Name | Role | Phone | [...] | | | | 2008 | | [address] | | | | | | [phone] | | | +--------+ + + + [...]
--- OUTSIDE RECORDS SUMMARY | 2020-02-22 10:52 | XMS ---
PreManage Notification: CHRIS SCHWARTZ Security Roping Machine Tender Events 1 event(s) in the past 18 months Most recent security events: Elopement at [facility] 07/27/2019 18:13 - Other Details: PATIENT LWBS. CRITERIA MET - Group Notification CARE PROVIDERS BELEN VAZQUEZ Internal Medicine 07/29/2019-Current PHONE: Unknown [facility] has no Care Guidelines for this patient. Care History Medical/Surgical 07/29/2019 [facility] - 08/14/19 CATHETER CHANGE IS SET UP WITH DR MORAN OFFICE. - DR MORAN-UROLOGIST- IS LOOKING TO HAVE PATIENT BE SEEN BY THE BEGINNING OF AUGUST 2019. - Patient is currently established with [facility]. If patient is seen in the ED during business hours. Please contact CHWs at [facility]. Care Recommendation: If this patient has had 5 or more Emergency Department visits in the last 12 months.\T\nbsp; Patient will require education on the scope and purpose of the ED as an acute care provider not a Primary Care Provider and should not be utilized for chronic conditions.\T\nbsp; These are guidelines and the provider should exercise clinical judgment when providing care. E.D. VISIT COUNT (12 MO.) [address] [facility] TOTAL 5 NOTE: Visits indicate total known visits. 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 - Other intermediate (current) drug therapy - Hematuria, unspecified - Chronic kidney disease, stage 4 (severe) 07/27/2019 18:13 [facility] [place] TYPE: Emergency COMPLAINT: - BLOOD IN URINE-LWOBS DIAGNOSES: - Hematuria, unspecified - Procedure and treatment not carried out due to patient leavin 07/25/2019 15:50 [facility] [place] TYPE: Emergency COMPLAINT: - DR VAZQUEZ REFER DIAGNOSES: - Other intermediate (current) drug therapy - Chronic kidney disease, unspecified - Retention of urine, unspecified INPATIENT VISIT TRACKING (12 MO.) No inpatient visits to display in this time frame [email or web address]
[2020-02-22] MEDS ORDERED: OXYBUTYNIN CHLOR5 M1 PO (11:13)
== END 2020-02-22 11:50 | disposition home or self-care (01) ==
LOC: ED 10:50
DX: T83.028A Displacement of other urinary catheter, initial encounter (principal); I12.9 Hypertensive chronic kidney disease with stage 1 through stage 4 chronic kidney disease, or unspecified chronic kidney disease; N18.4 Chronic kidney disease, stage 4 (severe); E78.5 Hyperlipidemia, unspecified; Z79.899 Other long term (current) drug therapy
CPT/HCPCS: 51702; 99283-25

== ENCOUNTER 2021-03-21 14:40 | Emergency (ER) | payer MEDICARE, MEDICAID, OTHER ==
[~2021-03-21] VITALS: Ht 170.2 cm; Wt 70.3 kg
[~2021-03-21 14:40] MED LIST changes: +OXYBUTYNIN CHLOR5 M1 PO
--- OUTSIDE RECORDS SUMMARY | 2021-03-21 14:48 | XMS ---
PreManage Notification: CHRIS SCHWARTZ Security Wildlife Rehabilitator Events No recent Security Events currently on file CRITERIA MET - [facility] - 2 Visits in 30 Days - [facility] - Has Care Guidelines - Group Notification CARE PROVIDERS BELEN VAZQUEZ Internal Medicine 07/29/2019-Current PHONE: Unknown Raven has no Care Guidelines for this patient. Care History Medical/Surgical 02/24/2020 [facility] Patient was told that Dr. Moran not available so he went to ED.\T\nbsp; Patient is scheduled for follow up with Dr. Moran on 03/10/2020 but will try to get in today. 07/29/2019 [facility] - 08/14/19 CATHETER CHANGE IS SET UP WITH DR MORAN OFFICE. - DR MORAN-UROLOGIST- IS LOOKING TO HAVE PATIENT BE SEEN BY THE BEGINNING OF AUGUST 2019. - Patient is currently established with [facility]. If patient is seen in the ED during business hours. Please contact CHWs at [facility]. Care Recommendation: If this patient has had [...] providing care. E.D. VISIT COUNT (12 MO.) [address] [facility] TOTAL 2 NOTE: Visits indicate total known visits. ED/UCC VISIT TRACKING (12 MO.) 03/21/2021 14:41 [facility] [place] TYPE: Emergency COMPLAINT: - L FOOT SWELLING 03/21/2021 08:27 [facility] [place] TYPE: Emergency COMPLAINT: - L FOOT SWOLLEN INPATIENT VISIT TRACKING (12 MO.) No inpatient visits to display in this time frame [email or web address]
[2021-03-21] MEDS ORDERED: AMLODIPINE BESYL5 MG PO (15:03)
--- NOTE | 2021-03-22 07:17 | EKG ---
[facility] [address] [place], [place] [address] Signed Normal sinus rhythm Normal ECG No previous ECGs available Confirmed by ARMANDO LE MD ([id number]) on 03/22/2021 7:17:13 AM Electronically Signed By: ARMANDO LE MD 03/22/21 0717 PATIENT NAME: CHRIS SCHWARTZN Electrocardiogram DATE OF : 35 PHYSICIAN: ARMANDO LE MD REPORT #: [id number] REPORT IS CONFIDENTIAL AND NOT TO BE RELEASED WITHOUT AUTHORIZATION
== END 2021-03-21 18:53 | disposition home or self-care (01) ==
LOC: ED 14:40
DX: R60.0 Localized edema (principal); I12.9 Hypertensive chronic kidney disease with stage 1 through stage 4 chronic kidney disease, or unspecified chronic kidney disease; N18.4 Chronic kidney disease, stage 4 (severe); Z79.899 Other long term (current) drug therapy
CPT/HCPCS: 71045; 80048; 84484; 85025; 93005; 93010; 93971; 99284-25

== ENCOUNTER 2021-08-20 12:19 | Emergency (ER) | payer MEDICARE, MEDICAID ==
[~2021-08-20] VITALS: Ht 170.2 cm; Wt 70.3 kg
[~2021-08-20 12:19] MED LIST changes: +AMLODIPINE BESYL5 MG PO
--- OUTSIDE RECORDS SUMMARY | 2021-08-20 12:26 | XMS ---
PreManage Notification: CHRIS SCHWARTZ Security Employee Relations Administrator Events 1 event(s) in the past 18 months Most recent security events: Elopement at [facility] 03/21/2021 08:27 - Other Details: PATIENT LWBS CRITERIA MET - Group Notification - - Has Care Guidelines CARE PROVIDERS BELEN VAZQUEZ Internal Medicine 07/29/2019-Current PHONE: Unknown Raven has no Care Guidelines for this patient. Care History Medical/Surgical 02/24/2020 [facility] Patient was told that Dr. Moran not available so he went to ED.\T\nbsp; Patient is scheduled for follow up with Dr. Moran on 03/10/2020 but will try to get in today. 07/29/2019 [facility] - 08/14/19 CATHETER CHANGE IS SET UP WITH DR MORAN OFFICE. - DR MORAN-UROLOGIST- IS LOOKING TO HAVE PATIENT BE SEEN BY THE BEGINNING OF AUGUST 2019. - Patient is currently established with [facility]. If patient is seen in the ED during business hours. Please contact CHWs at [facility]. Care Recommendation: If this patient has had 5 or more Emergency Department visits in the last 12 months.\T\nbsp; Patient will require education on the scope and purpose of the ED as an acute care provider not a Primary Care Provider and should not be utilized for chronic conditions.\T\nbsp; These are guidelines and the provider should exercise clinical judgment when providing care. [place] VISIT COUNT (12 MO.) 3 [facility] TOTAL 3 NOTE: Visits indicate total known visits. ED/UCC VISIT TRACKING (12 MO.) 08/20/2021 12:20 [facility] [place] TYPE: Emergency COMPLAINT: - BODY ACHE 03/21/2021 14:41 [facility] [place] TYPE: Emergency COMPLAINT: - L FOOT SWELLING DIAGNOSES: - Chronic kidney disease, stage 4 (severe) - Other specified soft tissue disorders - Localized edema - Hypertensive chronic kidney disease with stage 1 through stage 4 chronic kidney disease, or unspecified chronic kidney disease - Other group home (current) drug therapy 03/21/2021 08:27 [facility] [place] TYPE: Emergency COMPLAINT: - L FOOT SWOLLEN INPATIENT VISIT TRACKING (12 MO.) No inpatient visits to display in this time frame [email or web address]
== END 2021-08-20 15:00 | disposition home or self-care (01) ==
LOC: ED 12:19
DX: M54.50 Low back pain, unspecified (principal); I12.9 Hypertensive chronic kidney disease with stage 1 through stage 4 chronic kidney disease, or unspecified chronic kidney disease; N18.4 Chronic kidney disease, stage 4 (severe); Z79.899 Other long term (current) drug therapy
CPT/HCPCS: 51702; 81001; 99283-25

== ENCOUNTER 2022-09-11 21:13 | Emergency (ER) | payer MEDICARE, OTHER ==
[~2022-09-11] VITALS: Ht 170.2 cm; Wt 70.3 kg
--- OUTSIDE RECORDS SUMMARY | 2022-09-11 21:20 | XMS ---
PreManage Notification: CHRIS SCHWARTZ Security Senior Sql Developer Events 1 event(s) in the past 18 months Most recent security events: Elopement at [facility] 03/21/2021 08:27 - Other Details: PATIENT LWBS CRITERIA MET - [facility] - Has Care Guidelines - Group Notification CARE PROVIDERS BELEN VAZQUEZ Internal Medicine 08/22/2021-Current PHONE: Unknown Raven has no Care Guidelines for this patient. Care History Medical/Surgical 08/23/2021 [facility] Appointment with urologist, Dr. Birmingham, on 08/24/2021 08/22/2021 [facility] - Patient is currently established with [facility]. If patient is seen in the ED during business hours. Please contact CHWs at [facility]. Care Recommendation: If this patient has had 5 or more Emergency Department visits in the last 12 months.\T\nbsp; Patient will require education on the scope and purpose of the ED as an acute care provider not a Primary Care Provider and should not be utilized for chronic conditions.\T\nbsp; These are guidelines and the provider should exercise clinical judgment when providing care. 02/24/2020 [facility] Patient was told that Dr. Birmingham not available so he went to ED.\T\nbsp; Patient is scheduled for follow up with Dr. Birmingham on 03/10/2020 but will try to get in today. E.D. VISIT COUNT (12 MO.) 1 [facility] TOTAL 1 NOTE: Visits indicate total known visits. ED/UCC VISIT TRACKING (12 MO.) 09/11/2022 21:14 [facility] [place] TYPE: Emergency COMPLAINT: - CATHETER PROBLEM INPATIENT VISIT TRACKING (12 MO.) No inpatient visits to display in this time frame [email or web address]
[2022-09-11] MEDS ORDERED: VITAMIN D310 MC1 PO (21:34)
== END 2022-09-11 22:34 | disposition home or self-care (01) ==
LOC: ED 21:13
PROC: 4A0D7LZ Measurement of Urinary Volume, Via Natural or Artificial Opening (ICD-10-PCS; principal; 2022-09-11)
DX: Z46.6 Encounter for fitting and adjustment of urinary device (principal); N40.1 Benign prostatic hyperplasia with lower urinary tract symptoms; N13.8 Other obstructive and reflux uropathy; C61 Malignant neoplasm of prostate; I12.9 Hypertensive chronic kidney disease with stage 1 through stage 4 chronic kidney disease, or unspecified chronic kidney disease; N18.4 Chronic kidney disease, stage 4 (severe); E78.5 Hyperlipidemia, unspecified; Z79.899 Other long term (current) drug therapy
CPT/HCPCS: 36415; 51798; 80048; 99283

== ENCOUNTER 2023-07-17 14:03 | Emergency (ER) | payer MEDICARE, OTHER ==
[~2023-07-17] VITALS: Ht 170.2 cm; Wt 57.3 kg
[~2023-07-17 14:03] MED LIST changes: +VITAMIN D310 MC1 PO
--- OUTSIDE RECORDS SUMMARY | 2023-07-17 14:10 | XMS ---
PreManage Notification: CHRIS SCHWARTZ Security Orthodontic Treatment Coordinator Events No recent Security Events currently on file CRITERIA MET - Group Notification CARE PROVIDERS DELILAH VAZQUEZLM Internal Medicine 08/22/2021-Current PHONE: Unknown -, [place]- Dentist: [facility] PHONE: [phone] Raven has no Care Guidelines for this patient. Care History Medical/Surgical 08/23/2021 [facility] Appointment with urologist, Dr. Birmingham, on 08/24/2021 08/22/2021 [facility] - Patient is currently established with [facility]. If patient is seen in the ED during business hours. Please contact CHWs at [facility]. Care Recommendation: If this patient has had 5 or more Emergency Department visits in the last 12 months.\T\nbsp; Patient will require education on the scope and purpose of the ED as an acute care provider not a Primary Care Provider and should not be utilized for chronic conditions.\T\nbsp; These are guidelines and the provider should exercise clinical judgment when providing care. 02/24/2020 [facility] Patient was told that Dr. Birmingham not available so he went to ED.\T\nbsp; Patient is scheduled for follow up with Dr. Birmingham on 03/10/2020 but will try to get in today. [place] VISIT COUNT (12 MO.) 3 [facility] TOTAL 3 NOTE: Visits indicate total known visits. ED/UCC VISIT TRACKING (12 MO.) 07/17/2023 14:04 [facility] [place] TYPE: Emergency COMPLAINT: - R ARM PAIN 09/27/2022 12:43 [facility] [place] TYPE: Emergency COMPLAINT: - CATHETER CHANGE 09/11/2022 21:14 [facility] [place] TYPE: Emergency COMPLAINT: - CATHETER PROBLEM DIAGNOSES: - Anuria and oliguria - Benign prostatic hyperplasia with lower urinary tract symptoms - Chronic kidney disease, stage 4 (severe) - Encounter for fitting and adjustment of urinary device - Hyperlipidemia, unspecified - Hypertensive chronic kidney disease with stage 1 through stage 4 chronic kidney disease, or unspecified chronic kidney disease - Malignant neoplasm of prostate - Other retirement (current) drug therapy - Other obstructive and reflux uropathy INPATIENT VISIT TRACKING (12 MO.) No inpatient visits to display in this time frame [email or web address]
[2023-07-17] MEDS ORDERED: CEPHALEXIN500 M1 PO (15:05)
[2023-07-17 15:17] VITALS: BP 146/74
== END 2023-07-17 15:19 | disposition home or self-care (01) ==
LOC: ED 14:03
DX: M70.21 Olecranon bursitis, right elbow (principal); I12.9 Hypertensive chronic kidney disease with stage 1 through stage 4 chronic kidney disease, or unspecified chronic kidney disease; N18.4 Chronic kidney disease, stage 4 (severe); Z79.899 Other long term (current) drug therapy
CPT/HCPCS: 10060; 99283-25

== ENCOUNTER 2023-12-20 22:51 | Emergency (ER) | payer OTHER, MEDICARE ==
[~2023-12-20] VITALS: Ht 170.2 cm; Wt 57.6 kg
[~2023-12-20 22:51] MED LIST changes: +CEPHALEXIN500 M1 PO
[2023-12-21] MEDS ORDERED: AMOX TR-K CLV1 EAC1 PO (00:47)
[2023-12-21] MEDS ORDERED: DIPHTH,PERTUSS(ACELL),TET VAC 0.5 ML SYRINGE IM ONE (01:00)
[2023-12-21 01:06] VITALS: BP 157/73
== END 2023-12-21 01:07 | disposition home or self-care (01) ==
LOC: ED 22:51
DX: S01.01XA Laceration without foreign body of scalp, initial encounter (principal); S00.83XA Contusion of other part of head, initial encounter; S00.411A Abrasion of right ear, initial encounter; S60.511A Abrasion of right hand, initial encounter; I12.9 Hypertensive chronic kidney disease with stage 1 through stage 4 chronic kidney disease, or unspecified chronic kidney disease; N18.4 Chronic kidney disease, stage 4 (severe); E78.5 Hyperlipidemia, unspecified; W18.30XA Fall on same level, unspecified, initial encounter; Z79.899 Other long term (current) drug therapy
CPT/HCPCS: 70450; 72125; 73130; 90715